=== PATIENT | male | born 1940 | race Caucasian/White ===

== ENCOUNTER → 2018-10-30 | Outpatient (CLI) | payer MEDICARE ==
[~2018-10-30] MED LIST: ACET325T38 PO; ALBU2.5V4 NEB; AMLO2.5T4 PO; ASCO500T7 PO; BISA10SU8 RC; BUDE0.5A NEB; CEFD300C3 PO; CNC1KV IM; ESCI10TA55 PO; FERR325T18 PO; FLUT12AE4 INH; FLUT16SP22 NS; FOLI1TAB24 PO; ISOS5TAB3 PO; LORA10TA7 PO; MAG355OR16 PO; MAGN400T50 PO; MAGN800O PO; MELA3TAB PO; MIRT30TA6 PO; MULT-166 PO; OMEP20CA13 PO; POLY17PO6 PO; PRAV40TA2 PO; RISP12.5 IM; RIVA10TA PO; SENN-145 PO; TAMS0.4C98 PO; THIA100T66 PO; TR1C15 TOP; TRAZ-190 PO
[2018-10-30 12:38] LABS: BASOPHILS % (AUTO) 0 % (0-10); EOSINOPHILS # (AUTO) 0.2 10^3/uL (0.0-0.3); EOSINOPHILS % (AUTO) 1 % (0-10); HEMATOCRIT 36 % (40-54); HEMOGLOBIN 11.2 G/DL (13.3-17.7); LYMPHOCYTES # (AUTO) 0.9 X 10^3 (1.0-4.0); LYMPHOCYTES % (AUTO) 8 % (12-44); MEAN CORPUSCULAR HEMOGLOBIN 31 PG (25-34); MEAN CORPUSCULAR HGB CONC 31 G/DL (32-36); MEAN CORPUSCULAR VOLUME 99 FL (80-99); MEAN PLATELET VOLUME 10.1 FL (7.4-10.4); MONOCYTES # (AUTO) 1.2 X 10^3 (0.0-1.0); MONOCYTES % (AUTO) 11 % (0-12); NEUTROPHILS # (AUTO) 8.5 X 10^3 (1.8-7.8); NEUTROPHILS % (AUTO) 79 % (42-75); PLATELET COUNT 186 10^3/uL (130-400); RED CELL DISTRIBUTION WIDTH 14.2 % (10.0-14.5); WHITE BLOOD COUNT 10.8 10^3/uL (4.3-11.0)
--- NOTE | 2018-10-30 14:46 | Diagnostic Imaging Report ---
Indication: Cough. Comparison made with prior examination from 02/13/18. Findings: There are bibasal infiltrates. There is cardiomegaly. There is no pneumothorax. The mediastinum is unremarkable. Impression: There is bibasilar infiltrate. Cardiomegaly. Dictated by: Dictated on workstation # [id number]
== END ==
LOC: LAB 12:19
PROVIDERS: ATTEND Family Medicine
DX: I51.7 Cardiomegaly (principal); R06.02 Shortness of breath
CPT/HCPCS: 36415; 71045; 85025

== ENCOUNTER 2018-10-31 12:40 | Inpatient (IN) | payer MEDICARE | END 2018-11-03 13:40 | disposition other institution (70) | LOC: ER 12:40 → ICU 14:22 | DX: J18.1 Lobar pneumonia, unspecified organism (principal); G93.41 Metabolic encephalopathy; R09.02 Hypoxemia; I10 Essential (primary) hypertension; K21.9 Gastro-esophageal reflux disease without esophagitis; Z86.711 Personal history of pulmonary embolism; F32.9 Major depressive disorder, single episode, unspecified; D64.9 Anemia, unspecified; F03.90 Unspecified dementia, unspecified severity, without behavioral disturbance, psychotic disturbance, mood disturbance, and anxiety; E78.5 Hyperlipidemia, unspecified; N40.0 Benign prostatic hyperplasia without lower urinary tract symptoms; Z79.01 Long term (current) use of anticoagulants; R53.83 Other fatigue; B85.2 Pediculosis, unspecified; B86 Scabies ==

== ENCOUNTER 2018-11-03 22:12 | Emergency (ER) | payer MEDICARE, MEDICAID ==
[~2018-11-03] VITALS: Ht 172.7 cm; Wt 90.3 kg
[2018-11-03] MEDS ORDERED: LACTATED RINGERS 1,000 ML IV ONE (22:21)
[2018-11-03 22:30] LABS: ABG BASE EXCESS -0.7 MMOL/L (-2.5-2.5); ABG OXYGEN SATURATION 98 % (94-100); ABG PCO2 43 MMHG (35-45); ABG PH 7.37 (7.37-7.43); ABG PO2 130 MMHG (79-93); ABG TCO2 25.1 MMOL/L (21.0-31.0)
[2018-11-03 22:35] LABS: BASOPHILS % (AUTO) 0 % (0-10); EOSINOPHILS # (AUTO) 0.2 10^3/uL (0.0-0.3); EOSINOPHILS % (AUTO) 3 % (0-10); HEMATOCRIT 33 % (40-54); HEMOGLOBIN 10.6 G/DL (13.3-17.7); LYMPHOCYTES # (AUTO) 0.5 X 10^3 (1.0-4.0); LYMPHOCYTES % (AUTO) 7 % (12-44); MEAN CORPUSCULAR HGB CONC 32 G/DL (32-36); MEAN CORPUSCULAR VOLUME 96 FL (80-99); MEAN PLATELET VOLUME 9.1 FL (7.4-10.4); MONOCYTES # (AUTO) 0.6 X 10^3 (0.0-1.0); MONOCYTES % (AUTO) 9 % (0-12); NEUTROPHILS # (AUTO) 5.6 X 10^3 (1.8-7.8); NEUTROPHILS % (AUTO) 81 % (42-75); PLATELET COUNT 245 10^3/uL (130-400); RED CELL DISTRIBUTION WIDTH 14.6 % (10.0-14.5)
[2018-11-03 22:35] LABS: ALLENS TEST POSITIVE; INSPIRED O2 15; PATIENT TEMP 99.8; VENTILATOR NO
[2018-11-03 22:37] LABS: MEAN CORPUSCULAR HEMOGLOBIN 30 PG (25-34)
--- NOTE | 2018-11-03 22:49 | ED General ---
General Chief Complaint: Respiratory Problems Stated Complaint: SOA Nursing Triage Note: BROUGHT IN BY [facility] FOR C/O SOA, PRODUCTIVE COUGH, ALTERED MENTAL STATUS, LOW SPO2 Nursing Sepsis Screen: Possible Severe Sepsis Risk Source of Information: Patient Exam Limitations: Physical Impairments History of Present Illness Date Seen by Provider: Nov 03, 2018 Time Seen by Provider: 22:18 Initial Comments Here by EMS with report of shortness of air and cough with altered mental status. EMS reported the initial O2 sat was 88% and he had moderate amount of secretions in the upper airway. They did initiate DuoNeb and transported from the shelter. Apparently discharged today from the hospital and was doing better at discharge with no findings of pneumonia this morning on chest x-ray. Timing/Duration: 1/2 Hour Severity: Moderate Associated Systoms: Cough, Shortness of Air Allergies and Home Medications Allergies Coded Allergies: quetiapine (Verified Allergy, Unknown, 10/31/18) Home Medications Acetaminophen 325 Mg Tablet, 650 MG PO Q4H PRN for PAIN-MILD OR TEMPATURE, (Reported) TAKES 2 (325MG) TABLETS Albuterol Sulfate 2.5 Mg/3 Ml Vial.neb, 2.5 MG NEB QID, (Reported) 10 DAY THERAPY START DATE 10-30-18 END DATE 11-09-18 Amlodipine Besylate 2.5 Mg Tablet, 2.5 MG PO DAILY, (Reported) HOLD FOR BP <100/60 AND PULSE <60 Ascorbic Acid 500 Mg Tablet, 500 MG PO BID, (Reported) Bisacodyl 10 Mg Supp.rect, 10 MG RC Q72H PRN for CONSTIPATION-4TH LINE, (Reported) Budesonide 0.5 Mg/2 Ml Ampul.neb, 0.5 MG NEB Q12H PRN for SHORTNESS OF BREATH, (Reported) Cefdinir 300 Mg Capsule, 300 MG PO BID 300 mg bid x 8 caps Prescribed by: FADUMO LAWS on 11/03/18 1221 Cyanocobalamin 1,000 Mcg/Ml Inj, 1,000 MCG IM Tu, (Reported) Escitalopram Oxalate 10 Mg Tablet, 10 MG PO DAILY, (Reported) Ferrous Sulfate 325 Mg Tablet, 325 MG PO BID, (Reported) Fluticasone Propionate 16 Gm [place].susp, 1 SPRAY NS BID, (Reported) Fluticasone/Salmeterol 12 Gm Hfa.aer.ad, 1 PUFF INH BID, (Reported) Folic Acid 1 Mg Tablet, 1 MG PO DAILY, (Reported) Isosorbide Dinitrate 5 Mg Tablet, 5 MG PO DAILY, (Reported) HOLD FOR BP <100/60 AND PULSE <60 Loratadine 10 Mg Tablet, 10 MG PO DAILY, (Reported) Mag Hydrox/Aluminum Hyd/Simeth 355 Ml Oral.susp, 30 ML PO Q6H PRN for INDIGESTION, (Reported) Magnesium Hydroxide 2,400 Mg/10 Ml Oral.susp, 30 ML PO DAILY PRN for CONSTIPATION-7TH LINE, (Reported) Magnesium Oxide 400 Mg Tablet, 400 MG PO DAILY, (Reported) Melatonin 3 Mg Tablet, 3 MG PO HS, (Reported) Mirtazapine 30 Mg Tablet, 30 MG PO HS, (Reported) Multivitamin with Minerals 1 Each Tablet, 1 TAB PO DAILY, (Reported) Omeprazole 20 Mg Capsule.dr, 20 MG PO DAILY, (Reported) Polyethylene Glycol 3350 17 Gm Powd.pack, 17 GM PO DAILY, (Reported) Pravastatin Sodium 40 Mg Tablet, 40 MG PO HS, (Reported) Risperidone 12.5 Mg/2 Ml Disp.syrin, 12.5 MG IM EVERY 14 DAYS, (Reported) Rivaroxaban 10 Mg Tablet, 10 MG PO DAILY, (Reported) Sennosides/Docusate Sodium 1 Each Tablet, 2 TAB PO BID, (Reported) Tamsulosin HCl 0.4 Mg Cap, 0.4 MG PO HS, (Reported) Thiamine HCl 100 Mg Tablet, 100 MG PO DAILY, (Reported) Trazodone HCl 100 Mg Tablet, 200 MG PO HS, (Reported) TAKES 2 (100MG) TABLETS Triamcinolone Acet 15 Gm Cr, TOP BID, (Reported) APPLY TO BACK RT LOWER QUAD Patient Home Medication List Home Medication List Reviewed: Yes Review of Systems Review of Systems Constitutional: see HPI, fever EENTM: see HPI, nose congestion, other (moderate mucus production) Respiratory: cough, short of breath Unable to complete review of systems due to underlying mental status Past Pxdevzb-[place]-Axlfvl Hx Past Med/Social Hx: Reviewed Nursing Past Med/Soc Hx Patient Social History Alcohol Use: Denies Use Recreational Drug Use: No Smoking Status: Unknown if Ever Smoked Recent Foreign Travel: No Contact w/Someone Who Travel: No Recent Infectious Disease Expo: No Recent Hopitalizations: Yes (DC'D 11/03) Physical Abuse: No Sexual Abuse: No Mistreated: No Fear: No Seasonal Allergies Seasonal Allergies: No Past Medical History Surgeries: No Respiratory: Yes Pulmonary Embolism Cardiac: Yes Hypertension Neurological: Yes Dementia, Traumatic Brain Injury Gastrointestinal: Yes Gastroesophageal Reflux Musculoskeletal: Yes Arthritis Endocrine: No HEENT: No Cancer: No Psychosocial: Yes Depression Integumentary: No Blood Disorders: No Family Medical History Reviewed Nursing Family Hx Physical Exam-Suspected Sepsis Physical Exam Vital Signs Vital Signs - First Documented 11/03/18 22:14 Temp 99.6 Pulse 87 Resp 28 B/P (MAP) 185/86 (119) Pulse Ox 98 O2 Delivery Simple Mask O2 Flow Rate 10.00 Capillary Refill : Less Than 3 Seconds Blood Pressure Mean: 119 Height, Weight, BMI Height: 5'8.00" Weight: 199lbs. 3.0oz. [id number]; 30.8 BMI Method:Estimated General Appearance: Chronically ill, Mild Distress HEENT: PERRL/EOMI Neck: Non Tender, Supple Respiratory: Crackles (throughout transmitted from upper respiratory. Having a hard time handling secretions.) Cardiovascular: Regular Rate, Rhythm, No Murmur Gastrointestinal: Non Tender, Soft Back: Normal Inspection, No Vertebral Tenderness Extremity: Normal Range of Motion, Non Tender Neurologic/Psychiatric: Other (altered mental status that appears to be baseline per charts although unknown.) Skin: normal color, warm/dry, other (has multiple skin eruptions with known history of scabies that has been treated.) Focused Exam Lactate Level 11/03/18 22:20: Lactic Acid Level 0.73 Lactic Acid Level Laboratory Tests Test 11/03/18 22:20 Lactic Acid Level 0.73 MMOL/L (0.50-2.00) Progress/Results/Core Measures Suspected Sepsis Recent Fever Within 48 Hours: Yes Infection Criteria Present: Suspected New Infection New/Unexplained Altered Menta: Yes Sepsis Screen: Possible Severe Sepsis Risk SIRS Temperature:99.6 Pulse: 87 Respiratory Rate: 28 Laboratory Tests 11/03/18 22:20: White Blood Count 7.0 Blood Pressure 185 /86 Mean: 119 11/03/18 22:20: Lactic Acid Level 0.73 Laboratory Tests 11/03/18 22:20: Creatinine 0.85, INR Comment 1.2, Platelet Count 245, Total Bilirubin 0.5 Results/Orders Lab Results Laboratory Tests Test 11/03/18 22:20 11/03/18 22:24 11/03/18 23:25 Range/Units White Blood Count 7.0 4.3-11.0 10^3/uL Red Blood Count 3.48 L 4.35-5.85 10^6/uL Hemoglobin 10.6 #L 13.3-17.7 G/DL Hematocrit 33 L 40-54 % Mean Corpuscular Volume 96 80-99 FL Mean Corpuscular Hemoglobin 30 25-34 PG Mean Corpuscular Hemoglobin Concent 32 32-36 G/DL Red Cell Distribution Width 14.6 H 10.0-14.5 % Platelet Count 245 130-400 10^3/uL Mean Platelet Volume 9.1 7.4-10.4 FL Neutrophils (%) (Auto) 81 H 42-75 % Lymphocytes (%) (Auto) 7 L 12-44 % Monocytes (%) (Auto) 9 0-12 % Eosinophils (%) (Auto) 3 0-10 % Basophils (%) (Auto) 0 0-10 % Neutrophils # (Auto) 5.6 1.8-7.8 X 10^3 Lymphocytes # (Auto) 0.5 L 1.0-4.0 X 10^3 Monocytes # (Auto) 0.6 0.0-1.0 X 10^3 Eosinophils # (Auto) 0.2 0.0-0.3 10^3/uL Basophils # (Auto) 0.0 0.0-0.1 10^3/uL Neutrophils % (Manual) 84 % Lymphocytes % (Manual) 5 % Monocytes % (Manual) 5 % Eosinophils % (Manual) 5 % Band Neutrophils 1 % Elliptocytes SLIGHT Prothrombin Time 15.3 H 12.2-14.7 SEC INR Comment 1.2 0.8-1.4 Activated Partial Thromboplast Time 36 H 24-35 SEC D-Dimer 3.64 H 0.00-0.49 UG/ML Sodium Level 140 135-145 MMOL/L Potassium Level 4.1 3.6-5.0 MMOL/L Chloride Level 104 98-107 MMOL/L Carbon Dioxide Level 24 21-32 MMOL/L Anion Gap 12 5-14 MMOL/L Blood Urea Nitrogen 19 H 7-18 MG/DL Creatinine 0.85 0.60-1.30 MG/DL Estimat Glomerular Filtration Rate > 60 BUN/Creatinine Ratio 22 Glucose Level 100 70-105 MG/DL Lactic Acid Level 0.73 0.50-2.00 MMOL/L Calcium Level 8.8 8.5-10.1 MG/DL Corrected Calcium 9.3 8.5-10.1 MG/DL Total Bilirubin 0.5 0.1-1.0 MG/DL Aspartate Amino Transf (AST/SGOT) 24 5-34 U/L Alanine Aminotransferase (ALT/SGPT) 15 0-55 U/L Alkaline Phosphatase 89 40-136 U/L Total Protein 6.6 6.4-8.2 GM/DL Albumin 3.4 3.2-4.5 GM/DL Blood Gas Puncture Site RIGHT RADIAL Blood Gas Patient Temperature 99.8 Arterial Blood pH 7.37 7.37-7.43 Arterial Blood Partial Pressure CO2 43 35-45 MMHG Arterial Blood Partial Pressure O2 130 H 79-93 MMHG Arterial Blood HCO3 24 23-27 MMOL/L Arterial Blood Total CO2 25.1 21.0-31.0 MMOL/L Arterial Blood Oxygen Saturation 98 94-100 % Arterial Blood Base Excess -0.7 -2.5-2.5 MMOL/L Ruy Test POSITIVE Blood Gas Ventilator Setting NO Blood Gas Inspired Oxygen 15 Urine Color YELLOW Urine Clarity CLEAR Urine pH 5 5-9 Urine Specific [place] 1.025 H 1.016-1.022 Urine Protein 1+ H NEGATIVE Urine Glucose (UA) NEGATIVE NEGATIVE Urine Ketones 4+ H NEGATIVE Urine Nitrite NEGATIVE NEGATIVE Urine Bilirubin NEGATIVE NEGATIVE Urine Urobilinogen NORMAL NORMAL MG/DL Urine Leukocyte Esterase 1+ H NEGATIVE Urine RBC (Auto) 1+ H NEGATIVE Urine RBC 2-5 H /HPF Urine WBC 0-2 /HPF Urine Squamous Epithelial Cells 2-5 /HPF Urine Crystals NONE /LPF Urine Bacteria MODERATE H /HPF Urine Casts PRESENT /LPF Urine Hyaline Casts 0-2 H /LPF Urine Mucus NEGATIVE /LPF Urine Culture Indicated CULTURE PENDING My Orders Orders - KARLIE EISENBERG MD Cbc With Automated Diff (11/03/18 22:21) Comprehensive Metabolic Panel (11/03/18 22:21) Blood Culture (11/03/18 22:21) Sputum Culture (11/03/18 22:21) Urinalysis (11/03/18 22:21) Urine Culture (11/03/18 22:21) Protime With Inr (11/03/18 22:21) Partial Thromboplastin Time (11/03/18 22:21) Chest 1 View, Ap/Pa Only (11/03/18 22:21) Ed Iv/Invasive Line Start (11/03/18 22:21) Vital Signs Adult Sepsis Patie Q15M (11/03/18 22:21) O2 (11/03/18 22:21) Remove Rings In Anticipation O (11/03/18 22:21) Lactic Acid Analyzer (11/03/18 22:21) Lactated Ringers (Lr 1000 Ml Iv Solution (11/03/18 22:21) Arterial Blood Gas (11/03/18 22:21) Fibrin Degradation Products (11/03/18 22:21) Manual Differential (11/03/18 22:20) Arterial Blood Draw (11/03/18 ) Ct Angio Chest W (11/04/18 00:01) Iohexol Injection (Omnipaque 350 Mg/Ml 1 (11/04/18 00:15) Received Contrast (Hold Metformin- Contr (11/04/18 00:15) Ns (Ivpb) (Sodium Chloride 0.9% Ivpb Bag (11/04/18 00:15) Medications Given in ED Current Medications Medications Dose Ordered Sig/Roseann Route Start Time Stop Time Status Last Admin Dose Admin Iohexol 150 ml ONCE ONCE IV 11/04/18 00:15 11/04/18 00:16 DC 11/04/18 00:15 125 ML Lactated Ringer's 1,000 ml @ 0 mls/hr Q0M ONCE IV 11/03/18 22:21 11/03/18 22:24 DC 11/03/18 22:37 0 MLS/HR Sodium Chloride 100 ml ONCE ONCE IV 11/04/18 00:15 11/04/18 00:16 DC 11/04/18 00:15 80 ML Vital Signs/I&O 11/03/18 11/03/18 11/03/18 22:14 22:34 23:15 Temp 99.6 99.0 Pulse 87 93 Resp 28 27 B/P (MAP) 185/86 (119) 200/94 Pulse Ox 98 95 93 O2 Delivery Simple Mask Nasal Cannula Nasal Cannula O2 Flow Rate 10.00 4.00 2.00 11/04/18 00:00 Intake Total 1000 ml Balance 1000 ml Capillary Refill : Less Than 3 Seconds Blood Pressure Mean: 119 Progress Note : Progress Note Seen and evaluated. IV, labs, blood cultures and lactic acid ordered. Chest x- ray ordered. RT for ABG and suctioning. Suctioning did significantly improve his respiratory status. Monitor patient. D-dimer markedly elevated. 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 Given his risk, we will go ahead and get CT angiogram of the chest. Suctioning seems to have helped his breathing. He remains on 2 L via nasal cannula. Monitor patient. 0045: I did have at length discussion with the patient's guardian, Tammy Alarcon. We both agree the patient would benefit from change of CODE STATUS to DO NOT RESUSCITATE. I did discuss this with the shelter and they will take an order for me pending final paperwork from her. Overall he has remained improved throughout the ER stay just with suctioning when necessary. I did make sure that the shelter has suction available and they will with that and his room to help manage his secretions. Discharge back to shelter with return precautions. Dorcasjori agrees with plan. custodial did not have transfer capability and has asked for EMS. I did discuss with them that he does not meet Medicare guidelines for ambulance transfer and they would be responsible for the cost for which they stated they understood. Diagnostic Imaging Diagonstic Imaging: Xray Plain Films/CT/US/NM/MRI: chest Comments Unchanged from this morning with no acute pulmonary infiltrate noted. Reviewed: Reviewed by Me Departure Impression Primary Impression: Rhinorrhea Additional Impression: Cough due to bronchospasm Disposition: HOME, SELF-CARE Condition: Stable Departure-Patient Inst. Decision time for Depature: 01:32 Referrals: FABIÁN KENYON DO (PCP/Family) Primary Care Physician Patient Instructions: Acute Bronchitis, Adult (DC), Cough, Adult (DC) Add. Discharge Instructions: All discharge instructions reviewed with patient and/or family. Voiced understanding. Suction mouth as often as needed to prevent coughing and pooling of secretions. Follow-up with your DrEj in a few days for recheck. CODE STATUS changed to DO NOT RESUSCITATE. Orders written. Please send final paperwork to guardian, Tammy Alarcon. Return for worse pain, breathing problems, worsening fever or other concerns as needed. Continue home meds as previously prescribed. Copy Copies To 1: FABIÁN KENYON TIMOTHY D MD Nov 03, 2018 22:49
[2018-11-03 22:54] LABS: ALANINE AMINOTRANSFERASE 15 U/L (0-55); ALBUMIN 3.4 GM/DL (3.2-4.5); ALKALINE PHOSPHATASE 89 U/L (40-136); BILIRUBIN,TOTAL 0.5 MG/DL (0.1-1.0); BUN/CREATININE RATIO 22; CALCIUM 8.8 MG/DL (8.5-10.1); CARBON DIOXIDE 24 MMOL/L (21-32); CHLORIDE 104 MMOL/L (98-107); CREATININE SERUM 0.85 MG/DL (0.60-1.30); GFR ESTIMATED > 60; GLUCOSE 100 MG/DL (70-105); POTASSIUM 4.1 MMOL/L (3.6-5.0); SODIUM 140 MMOL/L (135-145); TOTAL PROTEIN 6.6 GM/DL (6.4-8.2)
[2018-11-03 22:56] LABS: BAND NEUTROPHILS 1 %; ELLIPT/OVALOCYTES SLIGHT; EOSINOPHILS % (MANUAL) 5 %; LYMPHOCYTES % (MANUAL) 5 %; MONOCYTES % (MANUAL) 5 %; NEUTROPHILS % (MANUAL) 84 %
[2018-11-03 22:57] LABS: FIBRIN DEGRADATION PRODUCTS 3.64 UG/ML (0.00-0.49); INR 1.2 (0.8-1.4); PROTHROMBIN TIME PATIENT 15.3 SEC (12.2-14.7)
[2018-11-03 23:35] LABS: BILIRUBIN,URINE NEGATIVE (NEGATIVE); CLARITY,URINE CLEAR; COLOR,URINE YELLOW; GLUCOSE, URINE (UA) NEGATIVE (NEGATIVE); KETONES,URINE 4+ (NEGATIVE); LEUKOCYTE ESTERASE ,URINE 1+ (NEGATIVE); NITRITE,URINE NEGATIVE (NEGATIVE); PH,URINE 5 (5-9); PROTEIN,URINE 1+ (NEGATIVE); UROBILINOGEN,URINE NORMAL (NORMAL)
[2018-11-03 23:55] LABS: WBC,URINE 0-2 /HPF
[2018-11-03 23:56] LABS: BACTERIA,URINE MODERATE /HPF; HYALINE CASTS, URINE 0-2 /LPF
[2018-11-04] MEDS ORDERED: IOHEXOL 350 MG/ML 150 ML (OMNIPAQUE 350) VIAL IV ONE (00:15)
[2018-11-04] MEDS ORDERED: NS 100 ML (IVPB) BAG IV ONE (00:15)
[2018-11-04] MEDS ORDERED: HOLD METFORMIN - RECEIVED CONTRAST 20 ML VIAL IV SCH (00:15)
[2018-11-04 01:45] VITALS: BP 165/96
--- NOTE | 2018-11-04 06:53 | Diagnostic Imaging Report ---
PROCEDURE: CT angiography of the chest with contrast. TECHNIQUE: Multiple contiguous axial images were obtained through the chest after uneventful bolus administration of intravenous contrast. 3D reconstructed CTA MIP acquisitions were also performed. Auto Exposure Controls were utilized during the CT exam to meet ALARA standards for radiation dose reduction. INDICATION: Dyspnea. COMPARISON: None. DISCUSSION: Exam is degraded by patient motion. No obvious pulmonary embolus is identified. Thoracic aorta is normal in caliber and configuration and contains extensive atherosclerotic plaque. Normal heart size. Trace pericardial effusion. Patchy opacities are noted throughout the left upper lobe and bilateral lung bases, most consistent with pneumonia, left greater than right. Minimal tree-in-bud opacities is also noted within the right upper lobe. No pathologically enlarged lymph nodes are identified. Cysts are present within the kidneys. No acute osseous abnormality. IMPRESSION: 1. Suspect bilateral pneumonia. 2. No pulmonary embolus identified on this somewhat limited exam due to motion. 3. Agree with preliminary report. Dictated by: Dictated on workstation # [id number]
--- NOTE | 2018-11-04 07:17 | Diagnostic Imaging Report ---
Indication: Dyspnea. Comparison: 11/03/2018. Discussion: Single portable upright view of the chest was obtained. Stable normal heart size. No focal consolidation, pleural fluid, or pneumothorax. No osseous abnormality. Impression: 1. Stable negative chest. Dictated by: Dictated on workstation # [id number]
== END 2018-11-04 01:51 | disposition home or self-care (01) ==
LOC: EDUNIT# 22:12 → ER 22:13
DX: J34.89 Other specified disorders of nose and nasal sinuses (principal); J98.01 Acute bronchospasm; R41.82 Altered mental status, unspecified; I10 Essential (primary) hypertension; F03.90 Unspecified dementia, unspecified severity, without behavioral disturbance, psychotic disturbance, mood disturbance, and anxiety; K21.9 Gastro-esophageal reflux disease without esophagitis; F32.9 Major depressive disorder, single episode, unspecified; Z88.8 Allergy status to other drugs, medicaments and biological substances; Z86.711 Personal history of pulmonary embolism; Z87.820 Personal history of traumatic brain injury
CPT/HCPCS: 36415; 36600; 71045; 71275; 80053; 81000; 82805; 83605; 85007; 85027; 85379; 85610; 85730; 87040; 87088

== ENCOUNTER → 2018-11-29 | Outpatient (CLI) | payer MEDICARE, MEDICAID | LOC: LAB 15:03 | PROVIDERS: ATTEND Family Medicine | DX: B86 Scabies (principal) | CPT/HCPCS: 87220 ==

== ENCOUNTER → 2019-01-16 | Outpatient (CLI) | payer MEDICARE, MEDICAID ==
--- NOTE | 2019-01-16 13:11 | Diagnostic Imaging Report ---
INDICATION: Swelling and bruising right ring finger. TECHNIQUE: PA view right hand along with two views of the right ring finger 11:41 AM. CORRELATION STUDY: None FINDINGS: There is a triangular shaped fracture at the dorsal articular base of the middle phalanx. There is slight rotation and posterior displacement of the fractured fragment. Displacement of approximately 2 mm. The remaining osseous structures otherwise intact. There is diffuse narrowing through the interphalangeal joints both proximally and distally. Metacarpophalangeal joints appear fairly well-maintained. There is associated soft tissue swelling. IMPRESSION: 1. Mildly displaced fracture involving the dorsal articular base of middle phalanx of the ring finger. Associated soft tissue swelling. Dictated by: Dictated on workstation # [id number]
== END ==
LOC: RAD 11:23
PROVIDERS: ATTEND Family Medicine
DX: S62.624A Displaced fracture of middle phalanx of right ring finger, initial encounter for closed fracture (principal); X58.XXXA Exposure to other specified factors, initial encounter
CPT/HCPCS: 73140

== ENCOUNTER → 2019-03-30 | Outpatient (CLI) | payer MEDICARE, MEDICAID ==
[~2019-03-30] MED LIST changes: -MELA3TAB PO; +MELA3TAB65 PO; +OMEP-280 PO; -OMEP20CA13 PO; -TAMS0.4C98 PO; +TMSL.4C PO
--- NOTE | 2019-03-30 18:55 | Diagnostic Imaging Report ---
INDICATION: Back and rib pain. FINDINGS: Left lung is clear. There is no effusion or pneumothorax. There is no free air beneath the left hemidiaphragm. No fracture deformity. No evidence for pleural hematoma. Left clavicle and shoulder appear unremarkable. IMPRESSION: Negative. Dictated by: Dictated on workstation # [id number]
--- NOTE | 2019-03-30 18:58 | Diagnostic Imaging Report ---
INDICATION: Falls, pain. FINDINGS: Lumbar statures are within normal limits. The alignment is within normal limits. No acute endplate irregularity. There is degenerative disc space narrowing, endplate sclerosis and osteophytes mildly involving all lumbar levels. There is sclerotic facet arthrosis moderate to severely at the mid to lower lumbar levels. There is aortoiliac atherosclerotic vascular calcifications with the infrarenal aorta at least mildly ectatic measuring 3 cm AP based upon its intimal calcification separation. IMPRESSION: Facet arthrosis appears moderate to severe. There is mild spondylosis. No acute bony pathology. Enlargement of the calcified atherosclerotic aorta. Dictated by: Dictated on workstation # [id number]
== END ==
LOC: RAD 14:46
PROVIDERS: ATTEND Family Medicine
DX: M47.816 Spondylosis without myelopathy or radiculopathy, lumbar region (principal); R07.81 Pleurodynia
CPT/HCPCS: 71100; 72100

== ENCOUNTER 2019-04-21 06:02 | Emergency (ER) | payer MEDICARE, MEDICAID ==
[~2019-04-21] VITALS: Ht 175 cm; Wt 90.0 kg
--- NOTE | 2019-04-21 07:15 | NUR ---
DR. DYE NOTIFIED OF MULTIPLE ATTEMPTS AT IV START WITH NO SUCCESS BY SEVERAL ER NURSES. PER DR. DYE BLOOD DRAW ONLY OK AT THIS TIME.
[2019-04-21 07:21] LABS: BILIRUBIN,URINE NEGATIVE (NEGATIVE); CLARITY,URINE CLEAR; COLOR,URINE YELLOW; GLUCOSE, URINE (UA) NEGATIVE (NEGATIVE); KETONES,URINE NEGATIVE (NEGATIVE); LEUKOCYTE ESTERASE ,URINE NEGATIVE (NEGATIVE); NITRITE,URINE NEGATIVE (NEGATIVE); PROTEIN,URINE NEGATIVE (NEGATIVE)
[2019-04-21 07:26] LABS: BASOPHILS % (AUTO) 1 % (0-10); EOSINOPHILS # (AUTO) 0.4 10^3/uL (0.0-0.3); EOSINOPHILS % (AUTO) 6 % (0-10); HEMATOCRIT 35 % (40-54); HEMOGLOBIN 11.2 G/DL (13.3-17.7); LYMPHOCYTES # (AUTO) 0.9 X 10^3 (1.0-4.0); LYMPHOCYTES % (AUTO) 16 % (12-44); MEAN CORPUSCULAR HEMOGLOBIN 31 PG (25-34); MEAN CORPUSCULAR HGB CONC 32 G/DL (32-36); MEAN CORPUSCULAR VOLUME 99 FL (80-99); MEAN PLATELET VOLUME 9.4 FL (7.4-10.4); MONOCYTES # (AUTO) 0.6 X 10^3 (0.0-1.0); MONOCYTES % (AUTO) 10 % (0-12); NEUTROPHILS # (AUTO) 4.1 X 10^3 (1.8-7.8); NEUTROPHILS % (AUTO) 68 % (42-75); PLATELET COUNT 191 10^3/uL (130-400); RED CELL DISTRIBUTION WIDTH 13.1 % (10.0-14.5)
--- NOTE | 2019-04-21 07:32 | Diagnostic Imaging Report ---
PROCEDURE: CT head and CT cervical spine without contrast. TECHNIQUE: Multiple contiguous axial images were obtained through the brain and cervical spine without the use of intravenous contrast. Sagittal and coronal reformations through the cervical spine were then performed. Auto Exposure Controls were utilized during the CT exam to meet ALARA standards for radiation dose reduction. INDICATION: Fall, trauma. COMPARISON: CT head of 11/01/2018. FINDINGS: CT HEAD: No hyperdense hemorrhage or space-occupying mass. No hydrocephalus or midline shift. Shrestha-white matter differentiation is well-preserved. Global atrophy is present. Basilar cisterns are widely patent. Mastoid air cells are clear. Paranasal sinuses show mucosal retention cyst in the maxillary sinuses. Otherwise, paranasal sinuses are clear. Stable right frontal craniotomy. CT cervical spine: No acute fracture or traumatic malalignment in the cervical spine. No fracture of the upper ribs. Bilateral clavicles are intact. No cervical lymphadenopathy. Vascular calcifications in the carotid bulbs. Lung apices are clear. IMPRESSION: 1. No acute intracranial hemorrhage. 2. No acute fracture or traumatic malalignment in the cervical spine. Dictated by: Dictated on workstation # [id number]
[2019-04-21 07:51] LABS: BILIRUBIN,TOTAL 0.5 MG/DL (0.1-1.0); CALCIUM 9.3 MG/DL (8.5-10.1); CREATININE SERUM 1.21 MG/DL (0.60-1.30); POTASSIUM 4.5 MMOL/L (3.6-5.0); TOTAL PROTEIN 6.4 GM/DL (6.4-8.2)
[2019-04-21 07:52] LABS: BACTERIA,URINE NEGATIVE /HPF
--- NOTE | 2019-04-21 07:58 | NUR ---
DR. DYE REMOVED C COLLAR AT THIS TIME.
--- NOTE | 2019-04-21 08:00 | NUR ---
DR. DYE PLACED 2 NATALIA TO LAC ON BACK OF HEAD.
--- NOTE | 2019-04-21 08:15 | NUR ---
[facility] NOTIFIED OF PT PENDING DISMISSAL.
--- NOTE | 2019-04-21 08:29 | ED Fall/Injury ---
General Chief Complaint: Trauma-Non Activation Stated Complaint: FALL,LAC Nursing Triage Note: TO ED ROOM 6 [facility]IA [facility] FROM [facility]. NO REPORT RECEIVED FROM SENDING FACILITY. PER [facility] PT WAS FOUND ON FLOOR AND STAFF HELPED HIM GET UP AND WALK BACK TO BED. UPON ARRIVAL TO ER, LAC TO BACK OF HEAD NOTED WITH BLEEDING CONTROLLED. PT C/O NECK PAIN. C COLLAR PLACED UPON ARRIVAL. FALL UNWITNESS AND PT STATES, "I FELL 12 FEET OFF A LEDGE". PT HAS HX OF DEMENTIA AND BRAIN INJURY. Source: patient, EMS, group home records, old records Exam Limitations: no limitations History of Present Illness Date Seen by Provider: Apr 21, 2019 Time Seen by Provider: 06:05 Initial Comments This 78-year-old gentleman was found on the floor at the group home and arrives via EMS. He has a laceration on the right occiput and complained of a little bit of neck pain. A c-collar was applied on arrival. Patient is alert but confused. He does have dementia at baseline. Staff reports he has been less active and alert recently. He has also had multiple falls. He is afebrile and has no other acute signs of infectious illness. Patient denies any other injury. Patient was up and walking on EMS arrival. He is on Xarelto due to history of pulmonary embolism. He also has a history of subdural hematoma in the past. Occurred: just prior to arrival Allergies and Home Medications Allergies Coded Allergies: quetiapine (Verified Allergy, Unknown, 10/31/18) Home Medications Acetaminophen 325 Mg Tablet, 650 MG PO Q4H PRN for PAIN-MILD OR TEMPATURE, (Reported) TAKES 2 (325MG) TABLETS Albuterol Sulfate 2.5 Mg/3 Ml Vial.neb, 2.5 MG NEB QID, (Reported) 10 DAY THERAPY START DATE 10-30-18 END DATE 11-09-18 Amlodipine Besylate 2.5 Mg Tablet, 2.5 MG PO DAILY, (Reported) HOLD FOR BP <100/60 AND PULSE <60 Ascorbic Acid 500 Mg Tablet, 500 MG PO BID, (Reported) Bisacodyl 10 Mg Supp.rect, 10 MG RC Q72H PRN for CONSTIPATION-4TH LINE, (Reported) Budesonide 0.5 Mg/2 Ml Ampul.neb, 0.5 MG NEB Q12H PRN for SHORTNESS OF BREATH, (Reported) Cefdinir 300 Mg Capsule, 300 MG PO BID 300 mg bid x 8 caps Prescribed by: FADUMO LAWS on 11/03/18 1221 Cyanocobalamin 1,000 Mcg/Ml Inj, 1,000 MCG IM Tu, (Reported) Escitalopram Oxalate 10 Mg Tablet, 10 MG PO DAILY, (Reported) Ferrous Sulfate 325 Mg Tablet, 325 MG PO BID, (Reported) Fluticasone Propionate 16 Gm [place].susp, 1 SPRAY NS BID, (Reported) Fluticasone/Salmeterol 12 Gm Hfa.aer.ad, 1 PUFF INH BID, (Reported) Folic Acid 1 Mg Tablet, 1 MG PO DAILY, (Reported) Isosorbide Dinitrate 5 Mg Tablet, 5 MG PO DAILY, (Reported) HOLD FOR BP <100/60 AND PULSE <60 Loratadine 10 Mg Tablet, 10 MG PO DAILY, (Reported) Mag Hydrox/Aluminum Hyd/Simeth 355 Ml Oral.susp, 30 ML PO Q6H PRN for INDIGESTION, (Reported) Magnesium Hydroxide 2,400 Mg/10 Ml Oral.susp, 30 ML PO DAILY PRN for CONSTIPATION-7TH LINE, (Reported) Magnesium Oxide 400 Mg Tablet, 400 MG PO DAILY, (Reported) Melatonin 3 Mg Tablet, 3 MG PO HS, (Reported) Mirtazapine 30 Mg Tablet, 30 MG PO HS, (Reported) Multivitamin with Minerals 1 Each Tablet, 1 TAB PO DAILY, (Reported) Omeprazole 20 Mg Capsule.dr, 20 MG PO DAILY, (Reported) Polyethylene Glycol 3350 17 Gm Powd.pack, 17 GM PO DAILY, (Reported) Pravastatin Sodium 40 Mg Tablet, 40 MG PO HS, (Reported) Risperidone 12.5 Mg/2 Ml Disp.syrin, 12.5 MG IM EVERY 14 DAYS, (Reported) Rivaroxaban 10 Mg Tablet, 10 MG PO DAILY, (Reported) Sennosides/Docusate Sodium 1 Each Tablet, 2 TAB PO BID, (Reported) Tamsulosin HCl 0.4 Mg Cap, 0.4 MG PO HS, (Reported) Thiamine HCl 100 Mg Tablet, 100 MG PO DAILY, (Reported) Trazodone HCl 100 Mg Tablet, 200 MG PO HS, (Reported) TAKES 2 (100MG) TABLETS Triamcinolone Acet 15 Gm Cr, TOP BID, (Reported) APPLY TO BACK RT LOWER QUAD Patient Home Medication List Home Medication List Reviewed: Yes Review of Systems Review of Systems Constitutional: no symptoms reported Eyes: No Symptoms Reported Ears, Nose, Mouth, Throat: no symptoms reported Respiratory: no symptoms reported Cardiovascular: no symptoms reported Gastrointestinal: no symptoms reported Genitourinary: no symptoms reported Musculoskeletal: see HPI Skin: see HPI Psychiatric/Neurological: See HPI Past Qacmrzt-Pmecbb-Bbtfjx Hx Past Med/Social Hx: Reviewed and Corrections made Patient Social History Alcohol Use: Denies Use Recreational Drug Use: No Smoking Status: Never a Smoker Recent Foreign Travel: No Contact w/Someone Who Travel: No Recent Infectious Disease Expo: No Recent Hopitalizations: No Physical Abuse: No Sexual Abuse: No Mistreated: No Fear: No Seasonal Allergies Seasonal Allergies: No Past Medical History Surgeries: Yes (craniotomy) Respiratory: Yes Pulmonary Embolism Cardiac: Yes High Cholesterol, Hypertension Neurological: Yes Dementia, Traumatic Brain Injury (with subdural hematoma) Genitourinary: Yes Benign Prostatic Hyperpl Gastrointestinal: Yes Gastroesophageal Reflux Musculoskeletal: Yes Arthritis Endocrine: No HEENT: No Cancer: No Psychosocial: Yes Depression Integumentary: No Blood Disorders: No Physical Exam Vital Signs Vital Signs - First Documented 04/21/19 04/21/19 06:04 09:10 Temp 36.3 Pulse 50 Resp 18 B/P (MAP) 193/97 (129) Pulse Ox 98 O2 Delivery Room Air Capillary Refill : Less Than 3 Seconds Height, Weight, BMI Height: 5'8.00" Weight: 199lbs. 3.0oz. 90.757311sv; 29.00 BMI Method:Estimated General Appearance: WD/WN, no apparent distress HEENT: PERRL/EOMI, normal ENT inspection, pharynx normal Neck: normal inspection, other (c-collar in place) Cardiovascular: regular rate, rhythm, no edema, no murmur Respiratory: lungs clear, normal breath sounds, no respiratory distress, no accessory muscle use Gastrointestinal: normal bowel sounds, non tender, soft Extremities: non-tender, normal inspection, no pedal edema, other (no pain with hip palpation or rotation) Neurologic/Psychiatric: piece dyer II-XII nml as tested, no motor/sensory deficits, alert, normal mood/affect, other (mildly confused) Skin: normal color, warm/dry, other (2 cm laceration on the right occiput) [place] Coma Score Best Eye Response: (4) Open Spontaneously Best Verbal Response: (4) Confused Conversation Best Motor Response: (6) Obeys Commands Procedures/Interventions Wound Location: Scalp Wound Length (cm): 2 Wound's Depth, Shape: linear, sub Q Wound Explored: clean Irrigated w/ Saline (ccs): 400 Betadine Prep?: Yes Staple Repair: Stapler 35W Sterile Dressing Applied?: No Progress Wound clean and irrigated with saline and chlorhexidine. Betadine prep applied. 2 mekhi were applied to approximate the wound. Progress/Results/Core Measures Results/Orders Lab Results Laboratory Tests Test 04/21/19 07:11 04/21/19 07:18 Range/Units Urine Color YELLOW Urine Clarity CLEAR Urine pH 7.0 5-9 Urine Specific [place] 1.015 L 1.016-1.022 Urine Protein NEGATIVE NEGATIVE Urine Glucose (UA) NEGATIVE NEGATIVE Urine Ketones NEGATIVE NEGATIVE Urine Nitrite NEGATIVE NEGATIVE Urine Bilirubin NEGATIVE NEGATIVE Urine Urobilinogen 0.2 < = 1.0 MG/DL Urine Leukocyte Esterase NEGATIVE NEGATIVE Urine RBC (Auto) NEGATIVE NEGATIVE Urine RBC NONE /HPF Urine WBC NONE /HPF Urine Squamous Epithelial Cells NONE /HPF Urine Crystals NONE /LPF Urine Bacteria NEGATIVE /HPF Urine Casts NONE /LPF Urine Mucus NEGATIVE /LPF Urine Culture Indicated NO White Blood Count 6.0 4.3-11.0 10^3/uL Red Blood Count 3.58 L 4.35-5.85 10^6/uL Hemoglobin 11.2 L 13.3-17.7 G/DL Hematocrit 35 L 40-54 % Mean Corpuscular Volume 99 80-99 FL Mean Corpuscular Hemoglobin 31 25-34 PG Mean Corpuscular Hemoglobin Concent 32 32-36 G/DL Red Cell Distribution Width 13.1 10.0-14.5 % Platelet Count 191 130-400 10^3/uL Mean Platelet Volume 9.4 7.4-10.4 FL Neutrophils (%) (Auto) 68 42-75 % Lymphocytes (%) (Auto) 16 12-44 % Monocytes (%) (Auto) 10 0-12 % Eosinophils (%) (Auto) 6 0-10 % Basophils (%) (Auto) 1 0-10 % Neutrophils # (Auto) 4.1 1.8-7.8 X 10^3 Lymphocytes # (Auto) 0.9 L 1.0-4.0 X 10^3 Monocytes # (Auto) 0.6 0.0-1.0 X 10^3 Eosinophils # (Auto) 0.4 H 0.0-0.3 10^3/uL Basophils # (Auto) 0.0 0.0-0.1 10^3/uL Sodium Level 143 135-145 MMOL/L Potassium Level 4.5 3.6-5.0 MMOL/L Chloride Level 107 98-107 MMOL/L Carbon Dioxide Level 27 21-32 MMOL/L Anion Gap 9 5-14 MMOL/L Blood Urea Nitrogen 23 H 7-18 MG/DL Creatinine 1.21 0.60-1.30 MG/DL Estimat Glomerular Filtration Rate 58 BUN/Creatinine Ratio 19 Glucose Level 99 70-105 MG/DL Calcium Level 9.3 8.5-10.1 MG/DL Corrected Calcium 9.3 8.5-10.1 MG/DL Total Bilirubin 0.5 0.1-1.0 MG/DL Aspartate Amino Transf (AST/SGOT) 11 5-34 U/L Alanine Aminotransferase (ALT/SGPT) 10 0-55 U/L Alkaline Phosphatase 80 40-136 U/L Total Protein 6.4 6.4-8.2 GM/DL Albumin 4.0 3.2-4.5 GM/DL My Orders Orders - CHUY DYE MD Cbc With Automated Diff (04/21/19 06:13) Comprehensive Metabolic Panel (04/21/19 06:13) Ua Culture If Indicated (04/21/19 06:13) Ed Iv/Invasive Line Start (04/21/19 06:13) Ct Head/Cervical Spine Wo (04/21/19 06:13) Ekg Tracing (04/21/19 06:15) Monitor-Rhythm Ecg Trace Only (04/21/19 06:15) Straight Cath For Spec.-Adult (04/21/19 07:10) Vital Signs/I&O 04/21/19 04/21/19 04/21/19 06:04 07:00 09:10 Temp 36.3 36.3 36.3 Pulse 50 50 53 Resp 18 18 18 B/P (MAP) 193/97 (129) 193/97 (129) 183/77 (129) Pulse Ox 98 O2 Delivery Room Air Room Air Blood Pressure Mean: 129 Progress Progress Note : Progress Note Workup was unremarkable. Laceration was repaired and patient was discharged home. Diagnostic Imaging Diagonstic Imaging: CT Plain Films/CT/US/NM/MRI: head Comments CT head viewed by me and report reviewed. See report below: NAME: LULU GARLAND [facility] REC#: [id number] PT STATUS: REG ER : 1940 PHYSICIAN: CHUY DYE MD ADMIT DATE: 04/21/19/ER Signed Date of Exam:04/21/19 CT HEAD/CERVICAL SPINE WO PROCEDURE: CT head and CT cervical spine without contrast. TECHNIQUE: Multiple contiguous axial images were obtained through the brain and cervical spine without the use of intravenous contrast. Sagittal and coronal reformations through the cervical spine were then performed. Auto Exposure Controls were utilized during the CT exam to meet ALARA standards for radiation dose reduction. INDICATION: Fall, trauma. COMPARISON: CT head of 11/01/2018. FINDINGS: CT HEAD: No hyperdense hemorrhage or space-occupying mass. No hydrocephalus or midline shift. Shrestha-white matter differentiation is well-preserved. Global atrophy is present. Basilar cisterns are widely patent. Mastoid air cells are clear. Paranasal sinuses show mucosal retention cyst in the maxillary sinuses. Otherwise, paranasal sinuses are clear. Stable right frontal craniotomy. CT cervical spine: No acute fracture or traumatic malalignment in the cervical spine. No fracture of the upper ribs. Bilateral clavicles are intact. No cervical lymphadenopathy. Vascular calcifications in the carotid bulbs. Lung apices are clear. IMPRESSION: 1. No acute intracranial hemorrhage. 2. No acute fracture or traumatic malalignment in the cervical spine. Dictated by: Dictated on workstation # [id number] Dict: 04/21/19 0638 Trans: 04/21/19 [id number] [id number] Interpreted by: OLIMPIA BLAIR MD Electronically signed by: OLIMPIA BLAIR MD 04/21/19 08 Departure Impression Primary Impression: Fall on same level Qualified Codes: W18.30XA - Fall on same level, unspecified, initial encounter Additional Impressions: Scalp laceration Qualified Codes: S01.01XA - Laceration without foreign body of scalp, initial encounter Altered mental status Qualified Codes: R41.82 - Altered mental status, unspecified Disposition: HOME, SELF-CARE Condition: Improved Departure-Patient Inst. Decision time for Depature: 08:28 Referrals: FABIÁN KENYON DO (PCP/Family) Primary Care Physician Patient Instructions: Laceration Repair With Mekhi (DC) Add. Discharge Instructions: Monitor wound for signs of infection such as increasing redness, increasing swelling, puslike drainage, or fever. Return to care if the symptoms are noted. Remove mekhi in about 7 days. Follow-up with primary care provider on Tuesday for medication review and review of blood pressures. Avoid any sedating medicines, especially Xanax, until seen by the primary care provider. Return to care if there are any worsening symptoms or other problems or concerns. All discharge instructions reviewed with patient and/or family. Voiced understanding. Copy Copies To 1: FABIÁN KENYON JOSHUA T MD Apr 21, 2019 08:29
[2019-04-21 09:10] VITALS: BP 183/77
== END 2019-04-21 09:15 | disposition home or self-care (01) ==
LOC: EDUNIT# 06:02 → ER 06:04
DX: S01.01XA Laceration without foreign body of scalp, initial encounter (principal); R41.82 Altered mental status, unspecified; I10 Essential (primary) hypertension; E78.00 Pure hypercholesterolemia, unspecified; F03.90 Unspecified dementia, unspecified severity, without behavioral disturbance, psychotic disturbance, mood disturbance, and anxiety; K21.9 Gastro-esophageal reflux disease without esophagitis; F32.9 Major depressive disorder, single episode, unspecified; R40.2142 Coma scale, eyes open, spontaneous, at arrival to emergency department; R40.2252 Coma scale, best verbal response, oriented, at arrival to emergency department; R40.2362 Coma scale, best motor response, obeys commands, at arrival to emergency department; Z86.711 Personal history of pulmonary embolism; Z79.01 Long term (current) use of anticoagulants; Z87.820 Personal history of traumatic brain injury; Z88.8 Allergy status to other drugs, medicaments and biological substances; Z79.51 Long term (current) use of inhaled steroids; W18.30XA Fall on same level, unspecified, initial encounter; Y92.129 Unspecified place in nursing home as the place of occurrence of the external cause
CPT/HCPCS: 12001; 36415; 51701; 70450; 72125; 80053; 81000; 85025; 93005; 93041

== ENCOUNTER 2019-07-19 09:26 | Inpatient (IN) | payer MEDICARE, MEDICAID ==
[~2019-07-19] VITALS: Ht 177.8 cm; Wt 74.8 kg
[~2019-07-19 09:26] MED LIST changes: -MAGN800O PO; +MELA3TAB39 PO; -MELA3TAB65 PO; +MOM10U PO; -OMEP-280 PO; +OMEP20CA18 PO; -TRAZ-190 PO; +TRAZ-227 PO
--- NOTE | 2019-07-19 09:41 | ED Syncope ---
General Stated Complaint: SYNCOPE Source of Information: Patient, EMS, Correction Records Exam Limitations: Other (dementia) History of Present Illness Date Seen by Provider: July 19, 2019 Time Seen by Provider: 09:26 Initial Comments Patient resents ER by EMS from [facility] (formerly [facility]) with chief complaint of 2 episodes of syncope directly before arrival. He was walking down the manzo became lightheaded and complained that his knees are weak and nursing staff says they lowered him to the floor and he did not strike his head. They said he was out for about 20 seconds they helped him back up into a wheelchair. On the way to the bedroom the passed out a second time for about 20 seconds. No fevers chills cough chest pain shortness of air swelling around his abdomen or 4 feet. No sick contacts known. He took his blood pressure medications this dinora conti EMS reports blood pressure is 126 systolic when they arrived. He is not diabetic. He is having no lateralizing symptoms, slurred speech. He is at his baseline for dementia but conversational per staff. DO NOT RESUSCITATE. He does take Xarelto for history of pulmonary embolism. Staff checked his blood pressure and it was 80/60 with a heart rate in the upper 40s. EMS remarks she was able to stand up from the wheelchair and walk to the [place] with [place]by assist. 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 Allergies and Home Medications Allergies Coded Allergies: quetiapine (Verified Allergy, Unknown, 10/31/18) Home Medications Acetaminophen 325 Mg Tablet, 650 MG PO Q4H PRN for PAIN-MILD OR TEMPATURE, (Reported) TAKES 2 (325MG) TABLETS Albuterol Sulfate 2.5 Mg/3 Ml Vial.neb, 2.5 MG NEB QID, (Reported) 10 DAY THERAPY START DATE 10-30-18 END DATE 11-09-18 Amlodipine Besylate 2.5 Mg Tablet, 2.5 MG PO DAILY, (Reported) HOLD FOR BP <100/60 AND PULSE <60 Ascorbic Acid 500 Mg Tablet, 500 MG PO BID, (Reported) Bisacodyl 10 Mg Supp.rect, 10 MG RC Q72H PRN for CONSTIPATION-4TH LINE, (Reported) Budesonide 0.5 Mg/2 Ml Ampul.neb, 0.5 MG NEB Q12H PRN for SHORTNESS OF BREATH, (Reported) Cefdinir 300 Mg Capsule, 300 MG PO BID 300 mg bid x 8 caps Prescribed by: FADUMO LAWS on 11/03/18 1221 Cyanocobalamin 1,000 Mcg/Ml Inj, 1,000 MCG IM Tu, (Reported) Escitalopram Oxalate 10 Mg Tablet, 10 MG PO DAILY, (Reported) Ferrous Sulfate 325 Mg Tablet, 325 MG PO BID, (Reported) Fluticasone Propionate 16 Gm [place].susp, 1 SPRAY NS BID, (Reported) Fluticasone/Salmeterol 12 Gm Hfa.aer.ad, 1 PUFF INH BID, (Reported) Folic Acid 1 Mg Tablet, 1 MG PO DAILY, (Reported) Isosorbide Dinitrate 5 Mg Tablet, 5 MG PO DAILY, (Reported) HOLD FOR BP <100/60 AND PULSE <60 Loratadine 10 Mg Tablet, 10 MG PO DAILY, (Reported) Mag Hydrox/Aluminum Hyd/Simeth 355 Ml Oral.susp, 30 ML PO Q6H PRN for INDIGESTION, (Reported) Magnesium Hydroxide 2,400 Mg/10 Ml Oral.susp, 30 ML PO DAILY PRN for CONSTIPATION-7TH LINE, (Reported) Magnesium Oxide 400 Mg Tablet, 400 MG PO DAILY, (Reported) Melatonin 3 Mg Tablet, 3 MG PO HS, (Reported) Mirtazapine 30 Mg Tablet, 30 MG PO HS, (Reported) Multivitamin with Minerals 1 Each Tablet, 1 TAB PO DAILY, (Reported) Omeprazole 20 Mg Capsule.dr, 20 MG PO DAILY, (Reported) Polyethylene Glycol 3350 17 Gm Powd.pack, 17 GM PO DAILY, (Reported) Pravastatin Sodium 40 Mg Tablet, 40 MG PO HS, (Reported) Risperidone 12.5 Mg/2 Ml Disp.syrin, 12.5 MG IM EVERY 14 DAYS, (Reported) Rivaroxaban 10 Mg Tablet, 10 MG PO DAILY, (Reported) Sennosides/Docusate Sodium 1 Each Tablet, 2 TAB PO BID, (Reported) Tamsulosin HCl 0.4 Mg Cap, 0.4 MG PO HS, (Reported) Thiamine HCl 100 Mg Tablet, 100 MG PO DAILY, (Reported) Trazodone HCl 100 Mg Tablet, 200 MG PO HS, (Reported) TAKES 2 (100MG) TABLETS Triamcinolone Acet 15 Gm Cr, TOP BID, (Reported) APPLY TO BACK RT LOWER QUAD Patient Home Medication List Home Medication List Reviewed: Yes Review of Systems Constitutional: see HPI (review of symptoms limited secondary to patient's dementia); No chills, No fever EENTM: No hearing loss, No ear pain Respiratory: No cough, No short of breath Cardiovascular: No edema; syncope Gastrointestinal: No abdominal pain, No nausea Genitourinary: No discharge, No dysuria Musculoskeletal: No back pain, No joint pain Skin: No pruritus, No rash Psychiatric/Neurological: Denies Headache, Denies Numbness, Denies Paresthesia All Other Systems Reviewed Negative Unless Noted: Yes Past [place]-Rbuyvd-Zrfrpf Hx Patient Social History Alcohol Use: Denies Use Recreational Drug Use: No Smoking Status: Never a Smoker Recent Hopitalizations: No Seasonal Allergies Seasonal Allergies: No Past Medical History Surgeries: Yes (craniotomy) Respiratory: Yes Pulmonary Embolism Cardiac: Yes High Cholesterol, Hypertension Neurological: Yes Dementia, Traumatic Brain Injury Genitourinary: Yes Benign Prostatic Hyperpl Gastrointestinal: Yes Gastroesophageal Reflux Musculoskeletal: Yes Arthritis Endocrine: No HEENT: No Cancer: No Psychosocial: Yes Depression Integumentary: No Blood Disorders: No Physical Exam Vital Signs Vital Signs - First Documented 07/19/19 09:27 Temp 36.4 Pulse 49 Resp 15 B/P (MAP) 108/50 (69) Pulse Ox 96 O2 Delivery Room Air Capillary Refill : Height, Weight, BMI Height: 5'8.00" Weight: 199lbs. 3.0oz. [id number]; 29.00 BMI Method:Estimated General Appearance: No Apparent Distress, WD/WN HEENT: PERRL/EOMI, TMs Normal, Normal ENT Inspection, Pharynx Normal, Moist Mucous Membranes Neck: Full Range of Motion, Normal Inspection Cardiovascular: Regular Rate, Rhythm (sinus bradycardia 45-50), No Edema, No JVD, No Murmur, Normal Peripheral Pulses Respiratory: Lungs Clear, Normal Breath Sounds, No Accessory Muscle Use, No Respiratory Distress Gastrointestinal: Normal Bowel Sounds, No Organomegaly, Non Tender, Soft Extremities: Normal Capillary Refill, Normal Inspection, No Pedal Edema Neurologic/Psychiatric: Alert, Other (oriented to person but not time or place.) Cranial Nerves: Normal Hearing, Normal Speech, PERRL (4 mm bilateral) Motor/Sensory: No Motor Deficit, No Sensory Deficit Skin: Normal Color, Warm/Dry, Other (multiple old skin tears of various stages of healing. Old well-healed scar over the right scalp and scar in the mid abdomen from PEG tube) Progress/Results/Core Measures Results/Orders Lab Results Laboratory Tests Test 07/19/19 09:39 Range/Units White Blood Count 6.1 4.3-11.0 10^3/uL Red Blood Count 3.34 L 4.35-5.85 10^6/uL Hemoglobin 10.6 L 13.3-17.7 G/DL Hematocrit 33 L 40-54 % Mean Corpuscular Volume 100 H 80-99 FL Mean Corpuscular Hemoglobin 32 25-34 PG Mean Corpuscular Hemoglobin Concent 32 32-36 G/DL Red Cell Distribution Width 13.2 10.0-14.5 % Platelet Count 229 130-400 10^3/uL Mean Platelet Volume 9.7 7.4-10.4 FL Neutrophils (%) (Auto) 78 H 42-75 % Lymphocytes (%) (Auto) 11 L 12-44 % Monocytes (%) (Auto) 8 0-12 % Eosinophils (%) (Auto) 3 0-10 % Basophils (%) (Auto) 0 0-10 % Neutrophils # (Auto) 4.7 1.8-7.8 X 10^3 Lymphocytes # (Auto) 0.7 L 1.0-4.0 X 10^3 Monocytes # (Auto) 0.5 0.0-1.0 X 10^3 Eosinophils # (Auto) 0.2 0.0-0.3 10^3/uL Basophils # (Auto) 0.0 0.0-0.1 10^3/uL Sodium Level 141 135-145 MMOL/L Potassium Level 5.0 3.6-5.0 MMOL/L Chloride Level 109 H 98-107 MMOL/L Carbon Dioxide Level 19 L 21-32 MMOL/L Anion Gap 13 5-14 MMOL/L Blood Urea Nitrogen 30 H 7-18 MG/DL Creatinine 1.47 H 0.60-1.30 MG/DL Estimat Glomerular Filtration Rate 46 BUN/Creatinine Ratio 20 Glucose Level 136 H 70-105 MG/DL Calcium Level 8.7 8.5-10.1 MG/DL Corrected Calcium 8.9 8.5-10.1 MG/DL Total Bilirubin 0.4 0.1-1.0 MG/DL Aspartate Amino Transf (AST/SGOT) 17 5-34 U/L Alanine Aminotransferase (ALT/SGPT) 8 0-55 U/L Alkaline Phosphatase 69 40-136 U/L Troponin I < 0.028 <0.028 NG/ML B-Type Natriuretic Peptide 36.0 <100.0 PG/ML Total Protein 6.1 L 6.4-8.2 GM/DL Albumin 3.8 3.2-4.5 GM/DL My Orders Orders - TERESE GATES Cbc With Automated Diff (07/19/19:32) Comprehensive Metabolic Panel (07/19/19:32) Troponin I (07/19/19:32) BNP (07/19/19:) Continuous Ekg Monitoring (07/19/19:) Ekg Tracing (07/19/19:) Chest 1 View, Ap/Pa Only (07/19/19:32) Ua Culture If Indicated (07/19/19:32) Orthostatic Vital Signs (Adult (07/19/19 09:32) Ct Head Wo (07/19/19 09:32) Ed Iv/Invasive Line Start (07/19/19 10:25) Ns Iv 1000 Ml (Sodium Chloride 0.9%) (07/19/19 10:25) Vital Signs/I&O 07/19/19 07/19/19 09:27 10:37 Temp 36.4 Pulse 49 48 52 54 Resp 15 B/P (MAP) 108/50 (69) 117/51 (73) 111/55 (73) 116/52 (73) Pulse Ox 96 O2 Delivery Room Air Progress Progress Note #1: Time: 09:39 Progress Note Syncopal episodes without apparent trauma related to sinus bradycardia. Plan to get orthostatic vital signs, EKG, labs including troponin and BNP. His sinus bradycardia appears to be symptomatic. He takes amlodipine, Imdur, Risperdal and trazodone which may contribute to syncope. He is on Xarelto therefore we'll get a scan of his head without IV contrast. He does not have a pacemaker. Atypical presentation for an [place]?. Plan to give him aspirin to chew and swallow if his CT scan of the head is negative. He has a history of multiple falls. Progress Note #2: Time: 11:00 Progress Note Patient's orthostatics are not positive however he has paroxysmal bradycardia despite his syncopal episodes. We will give him a liter of fluids. He has not had any dysrhythmia on the monitor since he's been here. It looks like he typically has sinus bradycardia based on previous EKGs. Sebastian syncopal score -2 points. Very low risk; 0.7% risk of 30-day serious adverse event. Plan consultation with cardiology Initial ECG Impression Date: July 19, 2019 Initial ECG Impression Time: : Initial ECG Rate: 48 Initial ECG Rhythm: S.William Initial ECG Intervals: Normal Initial ECG Impression: Sinus Bradycardia Initial ECG Comparisson: Unchanged Comment Sinus bradycardia without clinically relevant ST changes. Unchanged from EKG from April 2019 when he was in the 40s with sinus bradycardia. Diagnostic Imaging Diagonstic Imaging: Xray Plain Films/CT/US/NM/MRI: chest (1v) Comments NAME: LULU GARLAND [facility] REC#: [id number] PT STATUS: REG ER : 1940 PHYSICIAN: TERESE GATES MD ADMIT DATE: 07/19/19/ER Draft Date of Exam:07/19/19 CHEST 1 VIEW, AP/PA ONLY INDICATION: Syncopal episode and bradycardia. TIME OF EXAM: 10:13 a.m. COMPARISON: Correlation is made with prior chest from 11/03/2018. The heart size is normal. The pulmonary vascularity is unremarkable. The lungs are clear. No infiltrate, effusion or pneumothorax is detected. IMPRESSION: No acute cardiopulmonary process is detected. Dictated on workstation # [id number] Dict: 07/19/19 1031 Trans: 07/19/19 1035 [id number] Interpreted by: SAI ANNE MD Electronically signed by: Reviewed: Reviewed by Me Diagonstic Imaging: CT (without IV contrast) Plain Films/CT/US/NM/MRI: head Comments Unchanged from previous CT. No acute intracranial hemorrhage, mass effect, midline shift or tumor. NAME: [facility] REC#: [id number] PT STATUS: REG ER : 1940 PHYSICIAN: TERESE GATES MD ADMIT DATE: 07/19/19/ER Draft Date of Exam:07/19/19 CT HEAD WO PROCEDURE: CT head without contrast. TECHNIQUE: Multiple contiguous axial images were obtained through the brain without the use of intravenous contrast. Auto Exposure Controls were utilized during the CT exam to meet ALARA standards for radiation dose reduction. INDICATION: Syncope. Correlation is made with prior head CT from 04/21/2019. Postsurgical changes of a right frontal craniotomy is noted. Ventricular size and sulcal pattern appear to be stable. There is no sulcal effacement or midline shift. No acute intra-axial or extra-axial hemorrhage is detected. Cisterns are patent. Visualized paranasal sinuses demonstrate small mucous retention cysts or polyps in bilateral maxillary sinuses. IMPRESSION: 1. Stable noncontrast head CT. No acute intracranial process detected. 2. Bilateral maxillary sinus mucous retention cysts or polyps. Dictated on workstation # [id number] Dict: 07/19/19 1011 Trans: 07/19/19 1014 [facility] [id number] Interpreted by: SAI ANNE MD Electronically signed by: Reviewed: Reviewed by Me Departure Communication (Admissions) Time/Spoke to Admitting Phy: 11:08 Dr Silverman: IM accepts to Cardiac stepdown. There was no injury or trauma so this is a medicine admit not a surgical/, admit. This was communicated to the surgeon on-call. Time/Spoke to Consulting Phy: 11:05 Discussed the case with Dr. Verdin and he recommends admitting the patient to medicine and he will consult on cardiac stepdown. Telemetry. Impression Primary Impression: Syncope Qualified Codes: R55 - Syncope and collapse Additional Impression: Bradycardia by electrocardiogram Disposition: ADMITTED INPATIENT Condition: Stable Admissions Decision to Admit Reason: Admit from ER (General) Decision to Admit/Date: July 19, 2019 Time/Decision to Admit Time: 11:05 Departure-Patient Inst. Referrals: FABIÁN KENYON DO (PCP/Family) Primary Care Physician TERESE GATES July 19, 2019 09:41
[2019-07-19 09:53] LABS: BASOPHILS % (AUTO) 0 % (0-10); EOSINOPHILS # (AUTO) 0.2 10^3/uL (0.0-0.3); EOSINOPHILS % (AUTO) 3 % (0-10); HEMATOCRIT 33 % (40-54); HEMOGLOBIN 10.6 G/DL (13.3-17.7); LYMPHOCYTES # (AUTO) 0.7 X 10^3 (1.0-4.0); LYMPHOCYTES % (AUTO) 11 % (12-44); MEAN CORPUSCULAR HEMOGLOBIN 32 PG (25-34); MEAN CORPUSCULAR HGB CONC 32 G/DL (32-36); MEAN CORPUSCULAR VOLUME 100 FL (80-99); MEAN PLATELET VOLUME 9.7 FL (7.4-10.4); MONOCYTES # (AUTO) 0.5 X 10^3 (0.0-1.0); MONOCYTES % (AUTO) 8 % (0-12); NEUTROPHILS # (AUTO) 4.7 X 10^3 (1.8-7.8); NEUTROPHILS % (AUTO) 78 % (42-75); PLATELET COUNT 229 10^3/uL (130-400); RED CELL DISTRIBUTION WIDTH 13.2 % (10.0-14.5); WHITE BLOOD COUNT 6.1 10^3/uL (4.3-11.0)
--- OUTSIDE RECORDS SUMMARY | 2019-07-19 10:01 | XMS REPORT | Continuity of Care Document ---
Author Organization Unknown Address Unknown Phone Unavailable Allergies Active Description Code Type Severity Reaction Onset Reported/Identified Relationship to Patient Clinical Status Yes No Known Allergies NKMA N/A N/A 01/23/2018 Yes No Known Drug Allergies [id number] Drug Allergy Unknown N/A 10/31/2018 Yes quetiapine [id number] Drug Allerg y Unknown N/A 10/31/2018 Medications Medication Packaging Start Date St op Date Route Dosage Sig magnesium oxide(magnesium ox jesus 400 mg (241.3 mg elemental magnesium) oral tablet) 1 tabs 01/23/2018 Oral 400 mg 400 mg = 1 tabs, Oral, qAM, 60 tabs, 0 Refill(s) pravastatin(pravastatin 40 mg oral tablet) 1 tabs 01/23/2018 Oral 40 mg 40 mg = 1 tabs, Oral, Bedtime (once a day), 90 tabs, 0 Refill(s) fluticasone(Flovent HFA 44 m cg/inh inhalation aerosol) 2 puffs 01/23/2018 Inhalation 2 puffs, Inhalation, BID, 10 .6 g, 0 Refill(s) naproxen(Aleve 220 mg oral tablet) 1 caps 01/23/2018 03/03/2018 Oral 1 caps, Oral, Daily, PRN: Pain Mild (1-3), 40 caps, 0 Refill(s) isosorbide dinitrate(isosorb jesus dinitrate 10 mg oral tablet) 0.5 tabs 01/23/2018 Oral 5 mg 5 mg = 0.5 tabs, Oral, BID, 0 Refill(s) amLODIPine(amLODIPine 5 mg oral tablet) 1 tabs 01/23/2018 Oral 5 mg 5 mg = 1 tabs, Oral, Bedtime (once a day), 30 tabs, 0 Refill(s) Lactated Ringers Injection(L actated Ringers Injection 1,000 mL) 1,000 mL 01/23/2018 02/04/2018 IV 50 mL/hr, IV docusate(Colace) 10 mL 01/23/2018 03/03/2018 NG-Tube 100 mg 100 mg = 10 mL, NG-Tube, BID ondansetron(Zofran) 2 mL 01/23/2018 03/03/2018 IV Push 4 mg 4 mg = 2 mL, IV Push, q6hr, PRN: Nausea polyethylene glycol 3350(MiraLax) 1 packets 01/23/2018 01/31/2018 Oral 17 g 17 g = 1 packets, Oral, Daily, PRN: Constipation levETIRAcetam(Keppra) 1 tabs 01/23/2018 01/24/2018 Oral 500 mg 500 mg = 1 tabs, Oral, BID acetaminophen(acetaminophen) 2 tabs 01/23/2018 03/03/2018 Oral 650 mg 650 mg = 2 tabs, Oral, q4hr, PRN: Other (See Comment) traMADol(traMADol) 1 tabs 01/23/2018 02/09/2018 Oral 50 mg 50 mg = 1 tabs, Oral, q4hr, PRN: Pain fluticasone(Flovent HFA 44 m cg/inh inhalation aerosol) 2 puffs 01/23/2018 02/14/2018 Inha lation 88 mcg 88 mcg = 2 puffs , Inhalation, BID magnesium oxide(magnesium oxide) 1 tabs 01/23/2018 03/03/2018 NG-Tube 400 mg 400 mg = 1 tabs, NG-Tube, qAM amLODIPine(amLODIPine) 1 tab s 01/23/2018 03/03/2018 NG-Tube 5 mg 5 mg = 1 tabs, NG-Tube, Bedtime (once a day) isosorbide dinitrate(isosorbide dinitrate) 0.5 tabs 01/23/2018 03/03/2018 NG-Tube 5 mg 5 mg = 0.5 tabs, NG-Tube, BI D ondansetron(Zofran) 1 tabs 01/23/2018 02/06/2018 Oral 4 mg 4 mg = 1 tabs, Oral, q6hr, PRN: Nausea folic acid(folic acid) 1 tab s 01/23/2018 02/06/2018 NG-Tube 1 mg 1 mg = 1 tabs, NG-Tube, Daily LORazepam(Ativan) 0.5 mL 01/23/2018 02/06/2018 IV Push 1 mg 1 mg = 0.5 mL, IV Push, q5min, PRN: Seizure promethazine(Phenergan) 1 mL 01/23/2018 02/06/2018 IntraMuscular 25 mg 25 mg = 1 mL, IntraMuscular, q4hr, PRN: Nausea haloperidol(Haldol) 0.1 mL 01/23/2018 02/06/2018 IV Push 0.5 mg 0.5 mg = 0.1 mL, IV Push, q2hr, PRN: Other (See Comment) thiamine(thiamine) 1 tabs 01/23/2018 01/24/2018 Oral 100 mg 100 mg = 1 tabs, Oral, Daily hydrALAZINE(hydrALAZINE) 0.5 mL 01/23/2018 01/30/2018 IV Push 10 mg 10 mg = 0.5 mL, IV Push, q4hr, PRN: Hypertension/High Blood Pressure thiamine(thiamine + Sodium Chloride 0.9% 5 0 mL) 5 mL 01/24/2018 02/01/2018 IV Push 500 mg 500 mg = 5 mL, 55 mL/hr, IV Push, Daily levETIRAcetam(Keppra) 5 mL 01/24/2018 02/01/2018 IV Piggyback 500 mg 500 mg = 5 mL, 420 mL/hr, IV Piggyback, BID Sodium Chloride 0.9%(dexmede tomidine IV additive 400 mcg [0.2 mcg/kg/hr] + NS' 100 mL) 100 mL 8 02/04/2018 IV 4.89 mL/hr, IV Sodium Chloride 0.9%(Sodium Chloride 0.9% 1,000 mL) 1,000 mL 01/24/2018 01/24/2018 IV 10 mg/hr, IV lidocaine(lidocaine 1% injectable solution ) 1 mL 01/24/2018 01/24/2018 SubCutaneous 1 mL, SubCutaneous, Once, MA N: Other (See Comment) ceFAZolin(ceFAZolin) 20 mL 01/24/2018 01/25/2018 IV Push 2 g 2 g = 20 mL, IV Push, q8hr morphine(morphine 1 mg/mL pr eservative-free injectable solution) 1 mL 01/24/2018 01/27/2018 IV Pus h 4 mg 4 mg = 1 mL, IV Push, q1hr, PRN: Pain Severe (7-10) HYDROmorphone(Dilaudid) 0.5 mL 01/24/2018 01/24/2018 IV Push 0.5 mg 0.5 mg = 0.5 mL, IV Push, q10min, PRN: Pain magnesium sulfate(magnesium sulfate) 50 mL 01/26/2018 01/26/2018 IV Piggyback 2 g 2 g = 50 mL, 25 mL/hr, IV Pi ggyback, Once potassium phosphate(potassium phosphate) 5 mL 01/26/2018 01/26/2018 IV Piggyback 15 mmol 15 mmol = 5 mL, 77.5 mL/hr, IV Piggyback, Once labetalol(labetalol) 2 mL 01/28/2018 03/03/2018 IV Push 10 mg 10 mg = 2 mL, IV Push, q2hr, PRN: Hypertension/High Blood Pressure hydrALAZINE(hydrALAZINE) 0.5 mL 01/28/2018 03/03/2018 IV Push 10 mg 10 mg = 0.5 mL, IV Push, q4hr, PRN: Hypertension/High Blood Pressure magnesium sulfate(magnesium sulfate) 50 mL 01/29/2018 02/16/2018 IV Piggyback 2 g 2 g = 50 mL, 25 mL/hr, IV Pi ggyback, q2hr, PRN: Other (See Comment) sodium phosphate(sodium phosphate) 13.33 mL 01/29/2018 02/22/2018 IV Piggyback 40 mmol 40 mmol = 13.33 mL, 43.89 mL /hr, IV Piggyback, Daily, PRN: Other (See Comment) potassium phosphate(potassium phosphate) 13.33 mL 01/29/2018 02/16/2018 IV Piggyback 40 mmol 40 mmol = 13.33 mL, 85.56 mL /hr, IV Piggyback, Daily, PRN: Other (See Comment) calcium gluconate(calcium gluconate) 30 mL 01/29/2018 02/16/2018 IV Piggyback 3 g 3 g = 30 mL, 43.33 mL/hr, IV Piggyback, Daily, PRN: Other (See Comment) potassium chloride(potassium chloride 20 mEq/100 mL intravenous solution) 100 mL 01/29/2018 8 IV Piggyback 20 mEq 20 mE q = 100 mL, 50 mL/hr, IV Piggyback, q2hr, PRN: Other (See Comment) furosemide(Lasix) 2 mL 01/29/2018 01/29/2018 IV Push 20 mg 20 mg = 2 mL, IV Push, Once potassium chloride(potassium chloride 20 mEq/15 mL oral liquid) 2 packets 01/30/2018 01/30/2018 Dobhoff Tube 40 mEq 40 mEq = 2 packe ts, Dobhoff Tube, Once LORazepam(Ativan) 0.25 mL 01/30/2018 01/30/2018 IV Push 0.5 mg 0.5 mg = 0.25 mL, IV Push, Once polyethylene glycol 3350(MiraLax) 1 packets 01/31/2018 03/03/2018 Dobhoff Tube 17 g 17 g = 1 packets, Dobhoff Tu be, Daily senna(Senokot) 1 tabs 01/31/2018 03/03/2018 Oral 8.6 mg 8.6 mg = 1 tabs, Oral, Daily glycopyrrolate(Robinul) 1 mL 01/31/2018 02/20/2018 IV Push 0.2 mg 0.2 mg = 1 mL, IV Push, BID, PRN: Secretions potassium chloride(potassium chloride 20 mEq oral powder for reconstitution) 2 packets 01/31/2018 02/16/2018 Oral 40 mEq 40 mEq = 2 packets, Oral, q2hr, PRN: Other (See Comment) doxazosin(doxazosin) 1 tabs 02/02/2018 03/03/2018 Dobhoff Tube 1 mg 1 mg = 1 tabs, Dobhoff Tube, Bedtime (once a day) Sodium Chloride 0.9%(Sodium Chloride 0.9% 1,000 mL) 1,000 mL 02/04/2018 02/07/2018 IV 75 mL/hr, IV ceFAZolin(ceFAZolin) 20 mL 02/05/2018 02/06/2018 IV Push 2 g 2 g = 20 mL, IV Push, q8hr (scheduled) morphine(morphine) 0.5 mL 02/05/2018 02/05/2018 IV Push 2 mg 2 mg = 0.5 mL, IV Push, q5min, PRN: Pain HYDROmorphone(Dilaudid) 0.5 mL 02/05/2018 02/05/2018 IV Push 0.5 mg 0.5 mg = 0.5 mL, IV Push, q10min, PRN: Pain LORazepam(Ativan) 0.25 mL 02/05/2018 02/05/2018 IV Push 0.5 mg 0.5 mg = 0.25 mL, IV Push, Once thiamine(thiamine) 1 tabs 02/06/2018 03/03/2018 Oral 100 mg 100 mg = 1 tabs, Oral, Daily ipratropium-albuterol(ipratr opium-albuterol 0.5 mg-2.5 mg/3 mLinhalation solution) 3 mL 02/06/2018 02/20/2018 EzPap 3 mL, E zPap, q4hr- [place] famotidine(Pepcid) 2 mL 02/08/2018 02/08/2018 IV Push 20 mg 20 mg = 2 mL, IV Push, Once famotidine(Pepcid) 1 tabs 02/08/2018 02/21/2018 NG-Tube 20 mg 20 mg = 1 tabs, NG-Tube, BID calcium carbonate(Tums) 2 ta bs 02/08/2018 02/18/2018 Oral 1,000 mg 1,000 mg = 2 tabs, Oral, TID, PRN: GERD/Heartburn haloperidol(Haldol) 0.05 mL 02/09/2018 02/15/2018 IV Push 0.25 mg 0.25 mg = 0.05 mL, IV Push, q4hr, PRN: Agitation budesonide(budesonide 0.5 mg /2 mL inhalation suspension) 2 mL 02/14/2018 02/14/2018 NEB 0.5 mg 0.5 mg = 2 mL, NEB, BID budesonide(budesonide 0.5 mg /2 mL inhalation suspension) 2 mL 02/14/2018 02/20/2018 EzPap 0.5 mg 0.5 mg = 2 mL, E zPap, BID enoxaparin(Lovenox) 0.4 mL 02/15/2018 02/16/2018 SubCutaneous 40 mg 40 mg = 0.4 mL, SubCutaneous, Daily rivaroxaban(Xarelto) 1 tabs 02/16/2018 03/03/2018 G-Tube 10 mg 10 mg = 1 tabs, G-Tube, Daily lidocaine(lidocaine 0.5% injectable soluti on) 5 mL 02/16/2018 02/16/2018 IntraDermal 5 mL, IntraDermal, Once mirtazapine(Remeron) 1 tabs 02/20/2018 03/03/2018 Oral 7.5 mg 7.5 mg = 1 tabs, Oral, Bedtime (once a day) budesonide(budesonide 0.5 mg /2 mL inhalation suspension) 2 mL 02/20/2018 03/03/2018 NEB 0.5 mg 0.5 mg = 2 mL, NEB, BID ipratropium-albuterol(DuoNeb 0.5 mg-2.5 mg/3 mL inhalation solution) 3 mL 02/20/2018 03/03/2018 NE B 3 mL, NEB, BID folic acid(folic acid) 1 tab s 03/03/2018 03/03/2018 Oral 0.4 mg 0.4 mg = 1 tabs, Oral, Daily polyethylene glycol 3350(MiraLax) 1 packets 03/03/2018 03/03/2018 Oral 17 g 17 g = 1 packets, Oral, BID docusate(Colace) 10 mL 03/03/2018 Oral 100 mg 100 mg = 10 mL, Oral, BID, 0 Refill(s) acetaminophen(acetaminophen 325 mg oral ta blet) 2 tabs 03/03/2018 Oral 650 mg 650 mg = 2 tabs, Oral, q4hr, PRN: Other (See Comment), 0 Refill(s) folic acid(folic acid 0.4 mg oral tablet) 1 tabs 03/03/2018 Oral 0.4 mg 0.4 mg = 1 tabs, Oral, Daily, 0 Refill(s) senna(Senokot 8.6 mg oral tablet) 1 tabs 03/03/2018 Oral 8.6 mg 8.6 mg = 1 tabs, Oral, Daily, 0 Refill(s) thiamine(thiamine 100 mg oral tablet) 1 tabs 03/03/2018 Oral 100 mg 100 mg = 1 tabs, Oral, Daily, 0 Refill(s) polyethylene glycol 3350(MiraLax) 1 packets 03/03/2018 Oral 17 g 17 g = 1 packets, Oral, BID, 0 Refill(s) mirtazapine(Remeron 15 mg oral tablet) 0.5 tabs 03/03/2018 Oral 7.5 mg 7.5 mg = 0.5 tabs, Oral, Bedtime (once a day), 0 Refill(s) rivaroxaban(Xarelto 10 mg oral tablet) 1 tabs 03/03/2018 G-Tube 10 mg 10 mg = 1 tabs, G-Tube, Daily, for 21 days then stp, 0 Refill(s) valproic acid(valproic acid 250 mg/5 mL oral syrup) 5 mL 03/03/2018 Oral 250 mg 250 mg = 5 mL, Oral, qAM, 0 Refill(s) valproic acid(valproic acid 250 mg/5 mL oral syrup) 20 mL 03/03/2018 Oral 1, 000 mg 1,000 mg = 20 mL, Oral, Bedt tico (once a day), 0 Refill(s) doxazosin(doxazosin 1 mg oral tablet) 1 tabs 03/03/2018 Oral 1 mg 1 mg = 1 tabs, Oral, Bedtime (once a day), 0 Refill(s) Problems Date Dx Coded Attending Type Code Diagnosis Diagnosed By 01/25/2018 Jameson Valerio S06.5X9A TRAUMATIC SUBDURAL HEMORRHAGE WITH LOSS OF CONSCIOUSNESS OF UNSPECIFIED DURATION, INITIAL ENCOUNTER Jameson Valerio 01/25/2018 Jameson Valerio W19.XXXA UNSPECIFIED FALL, INITIAL ENCOUNTER [facility] [place], Jameson 01/31/2018 Jameson Valerio F10 .10 [facility]COH[facility]2018 Jameson Valerio S06.5X9A TRAUMATIC SUBDURAL HEMORRHAGE WITH LOSS OF CONSCIOUSNESS OF UNSPECIFIED DURATION, INITIAL ENCOUNTER Jameson Valerio 01/31/2018 Jameson Valerio W19.XXXA UNSPECIFIED FALL, INITIAL ENCOUNTER [facility] [place], Jameson 02/09/2018 Jameson Valerio Z18 .2 RETAINED PLASTIC FRAGMENTS Jameson Valerio 03/08/2018 Liz Aaron Final D64. 9 Anemia, unspecified 03/08/2018 Agusto,Linus Final E46 Unspecified protein-calorie malnutrition 03/08/2018 Agusto,Linus Final E51. 2 Wernicke''s encephalopathy 03/08/2018 Liz Aaron Final E78. 5 Hyperlipidemia, unspecified 03/08/2018 Liz Aaron Final E87. 1 Hypo-osmolality and hyponatremia 03/08/2018 Agusto,Linus Final E87. 6 Hypokalemia 03/08/2018 Agusto,Linus Final F01. 51 Vascular dementia with behavioral disturbance 03/08/2018 Liz Aaron Final F10. 20 Alcohol dependence, uncomplicated 03/08/2018 Agusto,Linus Final F32. 9 Major depressive disorder, single episode, unspecified 03/08/2018 Agusto,Linus Final I10 Essential (primary) hypertension 03/08/2018 Agusto,Linus Final I25. 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 9 Chronic obstructive pulmonary disease, unspecified 03/08/2018 Liz Aaron Final K21. 9 Gastro-esophageal reflux disease without esophagitis 03/08/2018 Agusto,Linus Final L 03.311 Cellulitis of abdominal wall 03/08/2018 Agusto,Linus Final N17. 9 Acute kidney failure, unspecified 03/08/2018 Liz Aaron Final R29. 6 Repeated falls 03/08/2018 Agusto,Linus Final R 40.2143 Coma scale, eyes open, spontaneous, at hospital admiss ion 03/08/2018 Liz Aaron Final R 40.2253 Coma scale, best verbal response, oriented, at hospita l admission 03/08/2018 Liz Aaron Final R 40.2363 Coma scale, best motor response, obeys c ommands, at hospital admission 03/08/2018 Liz Aaron Final S 00.511A Abrasion of lip, initial encounter 03/08/2018 Liz Aaron Admitting S06.5X9A Traumatic subdural hemorrhage with loss of consciousness of unspecified dur 03/08/2018 Liz Aaron Final T 85.79XA Infection and inflammatory reaction due to other internal prosthetic device 03/08/2018 Liz Aaron Final W 19.XXXA Unspecified fall, initial encounter 03/08/2018 Agusto,Linus Final Z23 Encounter for immunization 03/08/2018 Agusto,Linus Final Z 85.820 Personal history of malignant melanoma of skin 03/08/2018 Agusto,Linus Final S 06.5X9A Traumatic subdural hemorrhage with loss of consciousness of unspecified dur 07/20/2018 Kris Díaz F 290.0 Dementia 08/29/2018 GELLENDER DO, FABIÁN Mackey Ot M43.17 SPONDYLOLISTHESIS, LUMBOSACRAL REGION 08/29/2018 GELLENDER DO, FABIÁN Mackey Ot M47.816 SPONDYLOSIS W/O MYELOPATHY OR RADICULOPA 08/29/2018 GELLENDER DO, FABIÁN Mackey Ot M79.89 OTHER SPECIFIED SOFT TISSUE DISORDERS 08/29/2018 GELLENDER DO, FABIÁN Mackey Ot N39.0 URINARY TRACT INFECTION, SITE NOT SPECIF 08/29/2018 GELLENDER DO, FABIÁN Mackey Ot W19.XXXA UNSPECIFIED FALL, INITIAL ENCOUNTER 09/25/2018 GELLENDER DO, FABIÁN Mackey Ot M43.17 SPONDYLOLISTHESIS, LUMBOSACRAL REGION 09/25/2018 GELLENDER DO, FABIÁN Mackey Ot M47.816 SPONDYLOSIS W/O MYELOPATHY OR RADICULOPA 09/25/2018 GELLENDER DO, FABIÁN Mackey Ot M79.89 OTHER SPECIFIED SOFT TISSUE DISORDERS 09/25/2018 GELLENDER DO, FABIÁN Mackey Ot N39.0 URINARY TRACT INFECTION, SITE NOT SPECIF 09/25/2018 GELLENDER DO, FABIÁN Mackey Ot W19.XXXA UNSPECIFIED FALL, INITIAL ENCOUNTER 11/01/2018 GELLENDER DO, FAIBÁN Mackey Ot I51.7 CARDIOMEGALY 11/01/2018 GELLENDER DO, FABIÁN Mackey Ot R06.02 SHORTNESS OF BREATH 11/03/2018 GELLENDER DO, FABIÁN Mackey Ot B85.2 PEDICULOSIS, UNSPECIFIED 11/03/2018 GELLENDER DO, FABIÁN Mackey Ot B86 SCABIES 11/03/2018 GELLENDER DO, FABIÁN Mackey Ot D64.9 ANEMIA, UNSPECIFIED 11/03/2018 GELLENDER DO, FABIÁN Mackey Ot E78.5 HYPERLIPIDEMIA, UNSPECIFIED 11/03/2018 GELLENDER DO, FABIÁN Mackey Ot F03.90 UNSPECIFIED DEMENTIA WITHOUT BEHAVIORAL 11/03/2018 GELLENDER DO, FABIÁN Mackey Ot F32.9 MAJOR DEPRESSIVE DISORDER, SINGLE EPISOD 11/03/2018 GELLENDER DO, FABIÁN Mackey Ot G93.41 METABOLIC ENCEPHALOPATHY 11/03/2018 GELLENDER DO, FABIÁN Mackey Ot I10 ESSENTIAL (PRIMARY) HYPERTENSION 11/03/2018 GELLENDER DO, FABIÁN Mackey Ot J18.1 LOBAR PNEUMONIA, UNSPECIFIED ORGANISM 11/03/2018 GELLENDER DO, FABIÁN Mackey Ot K21.9 GASTRO-ESOPHAGEAL REFLUX DISEASE WITHOUT 11/03/2018 GELLENDER DO, FABIÁN Mackey Ot N40.0 BENIGN PROSTATIC HYPERPLASIA WITHOUT LOW 11/03/2018 GELLENDER DO, FABIÁN Mackey Ot R09.02 HYPOXEMIA 11/03/2018 GELLENDER DO, FABIÁN Mackey Ot R53.83 OTHER FATIGUE 11/03/2018 GELLENDER DO, FABIÁN Mackey Ot Z79.01 PEER EDUCATOR (CURRENT) USE OF ANTICOAGULANT 11/03/2018 GELLENDER DO, FABIÁN Mackey Ot Z86.711 PERSONAL HISTORY OF PULMONARY EMBOLISM 11/03/2018 GELLENDER DO, FABIÁN Mackey Ot B85.2 PEDICULOSIS, UNSPECIFIED 11/03/2018 GELLENDER DO, FABIÁN Mackey Ot B86 SCABIES 11/03/2018 GELLENDER DO, FABIÁN Mackey Ot D64.9 ANEMIA, UNSPECIFIED 11/03/2018 GELLENDER DO, FABIÁN Mackey Ot E78.5 HYPERLIPIDEMIA, UNSPECIFIED 11/03/2018 GELLENDER DO, FABIÁN Mackey Ot F03.90 UNSPECIFIED DEMENTIA WITHOUT BEHAVIORAL 11/03/2018 GELLENDER DO, FABIÁN Mackey Ot F32.9 MAJOR DEPRESSIVE DISORDER, SINGLE EPISOD 11/03/2018 GELLENDER DO, FABIÁN Mackey Ot G93.41 METABOLIC ENCEPHALOPATHY 11/03/2018 GELLENDER DO, FABIÁN Mackey Ot I10 ESSENTIAL (PRIMARY) HYPERTENSION 11/03/2018 GELLENDER DO, FABIÁN Mackey Ot J18.1 LOBAR PNEUMONIA, UNSPECIFIED ORGANISM 11/03/2018 GELLENDER DO, FABIÁN Mackey Ot K21.9 GASTRO-ESOPHAGEAL REFLUX DISEASE WITHOUT 11/03/2018 GELLENDER DO, FABIÁN Mackey Ot N40.0 BENIGN PROSTATIC HYPERPLASIA WITHOUT LOW 11/03/2018 GELLENDER DO, FABIÁN Mackey Ot R09.02 HYPOXEMIA 11/03/2018 GELLENDER DO, FABIÁN Mackey Ot R53.83 OTHER FATIGUE 11/03/2018 GELLENDER DO, FABIÁN Mackey Ot Z79.01 PEER EDUCATOR (CURRENT) USE OF ANTICOAGULANT 11/03/2018 GELLENDER DO, FABIÁN Mackey Ot Z86.711 PERSONAL HISTORY OF PULMONARY EMBOLISM 11/03/2018 GELLENDER DO, FABIÁN Key Ot B85.2 PEDICULOSIS, UNSPECIFIED 11/03/2018 GELLENDER DO, FABIÁN Mackey Ot B86 SCABIES 11/03/2018 GELLENDER DO, FABIÁN Key Ot D64.9 ANEMIA, UNSPECIFIED 11/03/2018 GELLENDER DO, FABIÁN Mackey Ot E78.5 HYPERLIPIDEMIA, UNSPECIFIED 11/03/2018 GELLENDER DO, FABIÁN Mackey Ot F03.90 UNSPECIFIED DEMENTIA WITHOUT BEHAVIORAL 11/03/2018 GELLENDER DO, FABIÁN Mackey Ot F32.9 MAJOR DEPRESSIVE DISORDER, SINGLE EPISOD 11/03/2018 GELLENDER DO, FABIÁN Mackey Ot G93.41 METABOLIC ENCEPHALOPATHY 11/03/2018 GELLENDER DO, FABIÁN Mackey Ot I10 ESSENTIAL (PRIMARY) HYPERTENSION 11/03/2018 GELLENDER DO, FABIÁN Mackey Ot J18.1 LOBAR PNEUMONIA, UNSPECIFIED ORGANISM 11/03/2018 GELLENDER DO, FABIÁN Mackey Ot K21.9 GASTRO-ESOPHAGEAL REFLUX DISEASE WITHOUT 11/03/2018 GELLENDER DO, FABIÁN Mackey Ot N40.0 BENIGN PROSTATIC HYPERPLASIA WITHOUT LOW 11/03/2018 GELLENDER DO, FABIÁN Mackey Ot R09.02 HYPOXEMIA 11/03/2018 GELLENDER DO, FABIÁN Mackey Ot R53.83 OTHER FATIGUE 11/03/2018 GELLENDER DO, FABIÁN Key Ot Z79.01 PEER EDUCATOR (CURRENT) USE OF ANTICOAGULANT 11/03/2018 GELLENDER DO, FABIÁN Mackey Ot Z86.711 PERSONAL HISTORY OF PULMONARY EMBOLISM 11/03/2018 GELLENDER DO, FABIÁN Key Ot A41.9 SEPSIS, UNSPECIFIED ORGANISM 11/03/2018 GELLENDER DO, FABIÁN Mackey Ot B85.2 PEDICULOSIS, UNSPECIFIED 11/03/2018 GELLENDER DO, FABIÁN Key Ot B86 SCABIES 11/03/2018 GELLENDER DO, FABIÁN Key Ot D64.9 ANEMIA, UNSPECIFIED 11/03/2018 GELLENDER DO, FABIÁN Mackey Ot E78.5 HYPERLIPIDEMIA, UNSPECIFIED 11/03/2018 GELLENDER DO, FABIÁN Mackey Ot F03.90 UNSPECIFIED DEMENTIA WITHOUT BEHAVIORAL 11/03/2018 GELLENDER DO, FABIÁN Makcey Ot F32.9 MAJOR DEPRESSIVE DISORDER, SINGLE EPISOD 11/03/2018 GELLENDER DO, FABIÁN Mackey Ot G93.41 METABOLIC ENCEPHALOPATHY 11/03/2018 GELLENDER DO, FABIÁN Mackey Ot I10 ESSENTIAL (PRIMARY) HYPERTENSION 11/03/2018 GELLENDER DO, FABIÁN Mackey Ot J18.1 LOBAR PNEUMONIA, UNSPECIFIED ORGANISM 11/03/2018 GELLENDER DO, FABIÁN Mackey Ot K21.9 GASTRO-ESOPHAGEAL REFLUX DISEASE WITHOUT 11/03/2018 GELLENDER DO, FABIÁN Mackey Ot N40.0 BENIGN PROSTATIC HYPERPLASIA WITHOUT LOW 11/03/2018 GELLENDER DO, FABIÁN Mackey Ot R09.02 HYPOXEMIA 11/03/2018 GELLENDER DO, FABIÁN Mackey Ot R53.83 OTHER FATIGUE 11/03/2018 GELLENDER DO, FABIÁN Mackey Ot Z79.01 [facility] (CURRENT) USE OF ANTICOAGULANT 11/03/2018 GELLENDER DO, FABIÁN Mackey Ot Z86.711 PERSONAL HISTORY OF PULMONARY EMBOLISM 11/04/2018 KARLIE EISENBERG MD Ot F03.90 UNSPECIFIED DEMENTIA WITHOUT BEHAVIORAL 11/04/2018 KARLIE EISENBERG MD Ot F32.9 MAJOR DEPRESSIVE DISORDER, SINGLE EPISOD 11/04/2018 KARLIE EISENBERG MD Ot I10 ESSENTIAL (PRIMARY) HYPERTENSION 11/04/2018 KARLIE EISENBERG MD Ot J34.89 OTHER SPECIFIED DISORDERS OF NOSE AND NA 11/04/2018 KARLIE EISENBERG MD Ot J98.01 ACUTE BRONCHOSPASM 11/04/2018 KARLIE EISENBERG MD Ot K21.9 GASTRO-ESOPHAGEAL REFLUX DISEASE WITHOUT 11/04/2018 KARLIE EISENBERG MD Ot R06.02 SHORTNESS OF BREATH 11/04/2018 KARLIE EISENBERG MD Ot R41.82 ALTERED MENTAL STATUS, UNSPECIFIED 11/04/2018 KARLIE EISENBERG MD Ot Z86.711 PERSONAL HISTORY OF PULMONARY EMBOLISM 11/04/2018 KARLIE EISENBERG MD Ot Z87.820 PERSONAL HISTORY OF TRAUMATIC BRAIN INJU 11/04/2018 KARLIE EISENBERG MD Ot Z88.8 ALLERGY STATUS TO OTH DRUG/MEDS/BIOL SUB 11/07/2018 KARLIE EISENBERG MD Ot F03.90 UNSPECIFIED DEMENTIA WITHOUT BEHAVIORAL 11/07/2018 KARLIE EISENBERG MD Ot F32.9 MAJOR DEPRESSIVE DISORDER, SINGLE EPISOD 11/07/2018 KARLIE EISENBERG MD Ot I10 ESSENTIAL (PRIMARY) HYPERTENSION 11/07/2018 KARLIE EISENBERG MD Ot J34.89 OTHER SPECIFIED DISORDERS OF NOSE AND NA 11/07/2018 KARLIE EISENBERG MD Ot J98.01 ACUTE BRONCHOSPASM 11/07/2018 KALRIE EISENBERG MD, Ot K21.9 GASTRO-ESOPHAGEAL REFLUX DISEASE WITHOUT 11/07/2018 KARLIE EISENBERG MD Ot R06.02 SHORTNESS OF BREATH 11/07/2018 KARLIE EISENBERG MD, Ot R41.82 ALTERED MENTAL STATUS, UNSPECIFIED 11/07/2018 KARLIE EISENBERG MD, Ot Z86.711 PERSONAL HISTORY OF PULMONARY EMBOLISM 11/07/2018 AKRLIE EISENBERG MD, Ot Z87.820 PERSONAL HISTORY OF TRAUMATIC BRAIN INJU 11/07/2018 KARLIE EISENBERG MD, Ot Z88.8 ALLERGY [facility]US TO [facility] DRUG/MEDS/[facility] 12/05/2018 [facility] Mackey Ot B86 SCABIES 02/06/2019 [facility] Mackey Ot S62.624A DISP FX OF MIDDLE PHALANX OF RIGHT RING 02/06/2019 [facility] X58.XXXA EXPOSURE TO OTHER SPECIFIED FACTORS, INI 04/02/2019 [facility] Mackey Ot M47.816 SPONDYLOSIS W/O MYELOPATHY OR RADICULOPA 04/02/2019 [facility] R07.81 PLEURODYNIA 04/21/2019 CHUY DYE MD Ot E78.00 PURE HYPERCHOLESTEROLEMIA, UNSPECIFIED 04/21/2019 CHUY DYE MD Ot F03.90 UNSPECIFIED DEMENTIA WITHOUT BEHAVIORAL 04/21/2019 CHUY DYE MD Ot F32.9 MAJOR DEPRESSIVE DISORDER, SINGLE EPISOD 04/21/2019 CHUY DYE MD Ot I10 ESSENTIAL (PRIMARY) HYPERTENSION 04/21/2019 CHUY DYE MD Ot K21.9 GASTRO-ESOPHAGEAL REFLUX DISEASE WITHOUT 04/21/2019 CHUY DYE MD Ot R40.2142 COMA SCALE, EYES OPEN, SPONTANEOUS, EMR 04/21/2019 CHUY DYE MD, Ot R40.2252 COMA SCALE, BEST VERBAL RESPONSE, ORIENT 04/21/2019 CHUY DYE MD, Ot R40.2362 COMA SCALE, BEST MOTOR RESPONSE, OBEYS C 04/21/2019 CHUY DYE MD, Ot R41.82 ALTERED MENTAL STATUS, UNSPECIFIED 04/21/2019 CHUY DYE MD, Ot S01.01XA LACERATION WITHOUT FOREIGN BODY OF SCALP 04/21/2019 CHUY DYE MD, Ot W18.30XA FALL ON SAME LEVEL, UNSPECIFIED, INITIAL 04/21/2019 CHUY DYE MD, Ot Y92.[address] [facility] PLACE 04/21/2019 CHUY DYE MD, Ot Z79.01 PEER EDUCATOR (CURRENT) USE OF ANTICOAGULANT 04/21/2019 CHUY DYE MD Ot Z79.51 PEER EDUCATOR (CURRENT) USE OF INHALED STERO 04/21/2019 CHUY DYE MD, Ot Z86.711 PERSONAL HISTORY OF PULMONARY EMBOLISM 04/21/2019 CHUY DYE MD, Ot Z87.820 PERSONAL HISTORY OF TRAUMATIC BRAIN INJU 04/21/2019 CHUY DYE MD, Ot Z88.8 ALLERGY STATUS TO [facility] DRUG/MEDS/BIOL SUB 04/27/2019 CHUY DYE MD Ot E78.00 PURE HYPERCHOLESTEROLEMIA, UNSPECIFIED 04/27/2019 CHUY DYE MD Ot F03.90 UNSPECIFIED DEMENTIA WITHOUT BEHAVIORAL 04/27/2019 CHUY DYE MD, Ot F32.9 MAJOR DEPRESSIVE DISORDER, SINGLE EPISOD 04/27/2019 CHUY DYE MD, Ot I10 ESSENTIAL (PRIMARY) HYPERTENSION 04/27/2019 CHUY DYE MD, Ot K21.9 GASTRO-ESOPHAGEAL REFLUX DISEASE WITHOUT 04/27/2019 CHUY DYE MD, Ot R40.2142 COMA SCALE, EYES OPEN, SPONTANEOUS, EMR 04/27/2019 CHELE DYE MDUA T Ot R40.2252 COMA SCALE, BEST VERBAL RESPONSE, ORIENT 04/27/2019 CHUY DYE MD, Ot R40.2362 COMA SCALE, BEST MOTOR RESPONSE, OBEYS C 04/27/2019 CHUY DYE MD, Ot R41.82 ALTERED MENTAL STATUS, UNSPECIFIED 04/27/2019 CHUY DYE MD, Ot S01.01XA LACERATION WITHOUT FOREIGN BODY OF SCALP 04/27/2019 CHUY DYE MD, Ot W18.30XA FALL ON SAME LEVEL, UNSPECIFIED, INITIAL 04/27/2019 CUHY DYE MD, Ot Y92.[address] [facility] PLACE 04/27/2019 CHUY DYE MD, Ot Z79.01 [facility] (CURRENT) USE OF ANTICOAGULANT 04/27/2019 CHUY DYE MD, Ot Z79.51 PEER EDUCATOR (CURRENT) USE OF INHALED STERO 04/27/2019 CHUY DYE MD, Ot Z86.711 PERSONAL HISTORY OF PULMONARY EMBOLISM 04/27/2019 CHUY DYE MD, Ot Z87.820 PERSONAL HISTORY OF TRAUMATIC BRAIN INJU 04/27/2019 CHUY DYE MD, Ot Z88.8 ALLERGY STATUS TO [facility] DRUG/MEDS/BIOL SUB 04/30/2019 FABIÁN KENYON DO Ot M47.816 SPONDYLOSIS W/O MYELOPATHY OR RADICULOPA 04/30/2019 FABIÁN KENYON DO Ot R07.81 PLEURODYNIA 05/02/2019 CHUY DYE MD, Ot E78.00 PURE HYPERCHOLESTEROLEMIA, UNSPECIFIED 05/02/2019 CHUY DYE MD, Ot F03.90 UNSPECIFIED DEMENTIA WITHOUT BEHAVIORAL 05/02/2019 CHUY DYE MD, Ot F32.9 MAJOR DEPRESSIVE DISORDER, SINGLE EPISOD 05/02/2019 CHUY DYE MD, Ot I10 ESSENTIAL (PRIMARY) HYPERTENSION 05/02/2019 CHUY DEY MD, Ot K21.9 GASTRO-ESOPHAGEAL REFLUX DISEASE WITHOUT 05/02/2019 CHUY DYE MD, Ot R40.2142 COMA SCALE, EYES OPEN, SPONTANEOUS, EMR 05/02/2019 CHUY DYE MD, Ot R40.2252 COMA SCALE, BEST VERBAL RESPONSE, ORIENT 05/02/2019 [place], CHUY Nation Ot R40.2362 COMA SCALE, BEST MOTOR RESPONSE, OBEYS C 05/02/2019 CHUY DYE MD, Ot R41.82 ALTERED MENTAL STATUS, UNSPECIFIED 05/02/2019 CHUY DYE MD, Ot S01.01XA LACERATION WITHOUT FOREIGN BODY OF SCALP 05/02/2019 CHUY DYE MD, Ot W18.30XA FALL ON SAME LEVEL, UNSPECIFIED, INITIAL 05/02/2019 CHUY DYE MD, Ot Y92.[address] [facility] [address] 05/02/2019 CHUY DYE MD, Ot Z79.01 [facility] (CURRENT) USE OF ANTICOAGULANT 05/02/2019 CHUY DYE MD, Ot Z79.51 PEER EDUCATOR (CURRENT) USE OF INHALED STERO 05/02/2019 CHUY DYE MD, Ot Z86.711 PERSONAL HISTORY OF PULMONARY EMBOLISM 05/02/2019 CHUY DYE MD, Ot Z87.820 PERSONAL HISTORY OF TRAUMATIC BRAIN INJU 05/02/2019 CHUY DYE MD, Ot Z88.8 ALLERGY STATUS TO OT DRUG/MEDS/BIOL SUB Procedures Code [place] [address] CRAN I FOR EVAC OF HEMATOMA SUPRATENTORIAL, EXTRADURAL OR SUBDURAL [facility] [id number] Re moval of Drainage Device from Brain, Percutaneous Approach 02/05/201854401 SHAAN NEGRO OF IMPLANT; Jameson Still 02/09/2018 65591 CRAN I FOR EVAC OF HEMATOMA SUPRATENTORIAL, EXTRADURAL OR SUBDURAL Jameson Valerio 02/10/2018 59823 INIT [facility] Jameson Valerio 02/23/201814252 SHAAN NEGRO OF IMPLANT; Jameson Still 03/10/2018 93682 Comp rehensive metabolic panel 07/20/2018 02172 CBC with platelets, auto 07/20/2018 33801 Comp uted tomography, head or brain; without contrast material 0 07/20/2018 70380 Radi ologic exam chest 2 views 07/20/2018 60165 Free T4 07/20/2018 47463 Thyr oid stimulating hormone (TSH) 07/20/2018 86693 12+ -lead ECG, interp/report only 07/20/2018 71695 Urin alysis, automated, without microscopy 07/20/2018 Results Test Result Range COMPREHENSIVE CHEM PROFILE - 11/23/16 07 :43 GLUCOSE 100 MG/DL 60-99 BUN 14 MG/DL 8-23 CREATININE 1.0 MG/DL 0.5-1.2 eGFR If Am 88 ml/min/1.73m^2 >60 eGFR If Non Am 73 ml/min/1.73m^2 >60 TOTAL BILI 0.68 MG/DL 0.00-1.00 SODIUM 140 MMOL/L 133-145 POTASSIUM 4.4 MMOL/L 3.3-5.1 CHLORIDE 100 MMOL/L 96-108 CO2 26 MMOL/L 23-31 CALCIUM 9.3 MG/DL 8.7-10.3 AST/SGOT 20 U/L 5-40 ALT/SGPT 21 U/L 5-40 ALK PHOS 81 U/L 34-114 TOTAL PROTEIN 6.8 G/DL 5.9-8.4 ALBUMIN 4.2 G/DL 3.2-5.2 GLOBULIN 2.6 G/DL 2.0-4.4 LIPID PROFILE - 11/23/16 07:43 CHOLESTEROL 167 MG/DL 50-200 TRIGLYCERIDE 127 MG/DL 30-150 HDL-DIRECT 51 MG/DL 35-55 LDL-DIRECT 106 MG/DL 0-99 CHOL/HDL 3.3 RATIO 4.0-6.7 TSH Reflex to Free T4 - 01/18/18 16:10 TSH 1.04 uIU/ML 0.40-5.00 CBC - 01/18/18 16:11 WBC 7.1 X10^3/UL 4.0-10.0 NE% 77.6 % 42.2-75.2 NE# 5.5 X10^3/UL 1.4-6.5 LY% 12.3 % 20.5-51.1 LY# 0.9 X10^3/UL 1.2-3.4 MO% 8.2 % 1.7-9.3 MO# 0.6 X10^3/UL 0.1-0.6 EO% 1.3 % 0.0-3.0 EO# 0.1 X10^3/UL 0.0-0.2 BA% 0.3 % 0.0-1.0 BA# 0.0 X10^3/UL 0.0-0.1 RBC 4.04 X10^6 4.50-5.70 HGB 13.6 G/DL 13.8-17.0 HCT 41.4 % 39.0-49.0 MCV 102.5 FL 80.0-94.0 MCH 33.7 PG 26.0-32.0 MCHC 32.9 G/DL 32.0-36.0 RDW 13.1 % 11.5-15.5 PLT 205 X10^3 130-400 MPV 8.9 FL 9.0-12.1 Urine Dipstick/Microscopic for Symptoms - 01/18/18 16:11 COLOR D.YEL YELLOW-STRAW CLARITY CLEAR CLEAR LEUKOCYTES TR NEGATIVE NITRITES NEG NEGATIVE pH 6.5 5-8 PROTEIN NEG NEGATIVE GLUCOSE NORM MG/DL NEG KETONES SM NEGATIVE UROBILINOGEN NORM MG/DL 0 - 1.0 BILIRUBIN NEG NEGATIVE BLOOD NEG NEGATIVE SPEC GRAVITY 1.014 1.016-1.022 WBC 5-10 hpf 0-5/HPF RBC 2-5 hpf 0-2/HPF SQUAMOUS EPITH FEW hpf FEW/HPF BACTERIA 1+ hpf NONE/HPF CRYSTALS 0 hpf NONE/HPF MUCOUS 1+ hpf NONE/HPF HYALINE CASTS MANY lpf NONE/LPF OTHER CASTS 0 lpf NONE/LPF Vitamin D 25 - Hydroxy - 01/18/18 16:11 Urine Culture #[id number] - 01/18/18 16:11 CBC With Platelet and Differential - 18:51 Absolute Basophils 0.02 10*3/uL 0.00-0.2 0 Absolute Eosinophils 0.07 10*3/uL 0.00-0 .50 Absolute Lymphocytes 0.86 10*3/uL 0.80-3 .30 Absolute Monocytes 0.58 10*3/uL 0.30-1.0 0 Absolute Neutrophils 4.76 10*3/uL 1.90-7 .00 Basophils 0 % 0-2 Eosinophils 1 % 0-4 HCT 36.7 % 42.0-52.0 HGB 12.4 g/dL 14.0-18.0 Immature Granulocytes 0.5 % 0.0-1.0 Lymphocytes 14 % 20-46 MCH 34.0 pg 27.0-32.0 MCHC 33.8 g/dL 32.0-36.0 MCV 100.5 fL 82.0-99.0 Monocytes 9 % 4-11 MPV 9.1 fL 9.4-12.3 Neutrophils 75 % 51-75 Nucleated RBC Automated 0.0 /100 WBC Platelet Count 171 K/uL 150-400 RBC 3.65 10*6/uL 4.60-6.20 RDW 12.8 % 11.5-14.5 WBC 6.3 K/uL 4.8-10.8 Comprehensive Metabolic Panel (CMP) - 18:51 Albumin 3.3 g/dL 3.5-4.8 Alkaline Phosphatase 74 U/L 26-104 ALT (SGPT) 30 U/L 17-63 Anion Gap 12 mEq/L 3-20 AST (SGOT) 32 U/L 15-41 Bilirubin Total 1.5 mg/dL 0.2-1.2 BUN 23 mg/dL 4-20 Calcium 8.6 mg/dL 8.6-10.0 Chloride 99 mEq/L 99-109 CO2 23 mEq/L 22-32 Creatinine 1.40 mg/dL 0.64-1.27 Globulin 2.7 g/dL 1.9-4.3 Glucose 86 mg/dL 70-100 Potassium 4.6 mEq/L 3.6-5.1 Protein 6.0 g/dL 6.1-7.9 Sodium 134 mEq/L 136-144 eGFR - 01/23/18 18:51 eGFR 49 mL/min >60 CBC With Platelet and Differential - 04:11 Absolute Basophils 0.01 10*3/uL 0.00-0.2 0 Absolute Eosinophils 0.11 10*3/uL 0.00-0 .50 Absolute Lymphocytes 0.84 10*3/uL 0.80-3 .30 Absolute Monocytes 0.45 10*3/uL 0.30-1.0 0 Absolute Neutrophils 3.78 10*3/uL 1.90-7 .00 Basophils 0 % 0-2 Eosinophils 2 % 0-4 HCT 36.6 % 42.0-52.0 HGB 11.9 g/dL 14.0-18.0 Immature Granulocytes 0.4 % 0.0-1.0 Lymphocytes 16 % 20-46 MCH 32.9 pg 27.0-32.0 MCHC 32.5 g/dL 32.0-36.0 MCV 101.1 fL 82.0-99.0 Monocytes 9 % 4-11 MPV 8.8 fL 9.4-12.3 Neutrophils 73 % 51-75 Nucleated RBC Automated 0.0 /100 WBC Platelet Count 173 K/uL 150-400 RBC 3.62 10*6/uL 4.60-6.20 RDW 12.8 % 11.5-14.5 WBC 5.2 K/uL 4.8-10.8 Protime (INR) - 01/24/18 04:11 INR 1.1 NA 0.9-1.2 Magnesium - 01/24/18 04:11 Magnesium 2.1 mg/dL 1.8-2.5 Renal Function Panel - 01/24/18 04:11 Albumin 3.1 g/dL 3.5-4.8 Anion Gap 9 mEq/L 3-20 BUN 20 mg/dL 4-20 Calcium 8.4 mg/dL 8.6-10.0 Chloride 98 mEq/L 99-109 CO2 24 mEq/L 22-32 Creatinine 1.25 mg/dL 0.64-1.27 Glucose 79 mg/dL 70-100 Phosphorus 3.0 mg/dL 2.4-4.7 Potassium 4.3 mEq/L 3.6-5.1 Sodium 131 mEq/L 136-144 eGFR - 01/24/18 04:11 eGFR 56 mL/min >60 B12 and Folate - 01/24/18 04:12 Folate 4.8 ng/mL 7.0-31.4 Vitamin B12 221 pg/mL 213-816 Glucose NPT - 01/24/18 15:26 Glucose NPT 88 mg/dL 70-100 Glucose NPT - 01/24/18 21:40 Glucose NPT 104 mg/dL 70-100 CBC With Platelet and Differential - 03:24 Absolute Basophils 0.01 10*3/uL 0.00-0.2 0 Absolute Eosinophils 0.03 10*3/uL 0.00-0 .50 Absolute Lymphocytes 0.66 10*3/uL 0.80-3 .30 Absolute Monocytes 0.26 10*3/uL 0.30-1.0 0 Absolute Neutrophils 6.83 10*3/uL 1.90-7 .00 Basophils 0 % 0-2 Eosinophils 0 % 0-4 HCT 36.7 % 42.0-52.0 HGB 12.0 g/dL 14.0-18.0 Immature Granulocytes 0.3 % 0.0-1.0 Lymphocytes 9 % 20-46 MCH 33.3 pg 27.0-32.0 MCHC 32.7 g/dL 32.0-36.0 MCV 101.9 fL 82.0-99.0 Monocytes 3 % 4-11 MPV 9.2 fL 9.4-12.3 Neutrophils 87 % 51-75 Nucleated RBC Automated 0.0 /100 WBC Platelet Count 204 K/uL 150-400 RBC 3.60 10*6/uL 4.60-6.20 RDW 12.7 % 11.5-14.5 WBC 7.8 K/uL 4.8-10.8 Comprehensive Metabolic Panel (CMP) - 03:24 Albumin 3.0 g/dL 3.5-4.8 Alkaline Phosphatase 76 U/L 26-104 ALT (SGPT) 31 U/L 17-63 Anion Gap 12 mEq/L 3-20 AST (SGOT) 29 U/L 15-41 Bilirubin Total 1.3 mg/dL 0.2-1.2 BUN 19 mg/dL 4-20 Calcium 8.3 mg/dL 8.6-10.0 Chloride 101 mEq/L 99-109 CO2 20 mEq/L 22-32 Creatinine 0.99 mg/dL 0.64-1.27 Globulin 2.6 g/dL 1.9-4.3 Glucose 106 mg/dL 70-100 Potassium 4.2 mEq/L 3.6-5.1 Protein 5.6 g/dL 6.1-7.9 Sodium 133 mEq/L 136-144 Magnesium - 01/25/18 03:24 Magnesium 1.9 mg/dL 1.8-2.5 Renal Function Panel - 01/25/18 03:24 Phosphorus 3.2 mg/dL 2.4-4.7 Basic Metabolic Panel (BMP) - 01/25/18 0 3:24 Anion Gap 12 mEq/L 3-20 BUN 18 mg/dL 4-20 Calcium 8.4 mg/dL 8.6-10.0 Chloride 102 mEq/L 99-109 CO2 20 mEq/L 22-32 Creatinine 1.00 mg/dL 0.64-1.27 Glucose 106 mg/dL 70-100 Potassium 4.2 mEq/L 3.6-5.1 Sodium 134 mEq/L 136-144 eGFR - 01/25/18 03:24 eGFR >60 mL/min >60 eGFR - 01/25/18 03:24 eGFR >60 mL/min >60 CBC With Platelet and Differential - 04:02 Absolute Basophils 0.01 10*3/uL 0.00-0.2 0 Absolute Eosinophils 0.11 10*3/uL 0.00-0 .50 Absolute Lymphocytes 0.68 10*3/uL 0.80-3 .30 Absolute Monocytes 0.79 10*3/uL 0.30-1.0 0 Absolute Neutrophils 6.38 10*3/uL 1.90-7 .00 Basophils 0 % 0-2 Eosinophils 1 % 0-4 HCT 37.3 % 42.0-52.0 HGB 12.2 g/dL 14.0-18.0 Immature Granulocytes 0.3 % 0.0-1.0 Lymphocytes 9 % 20-46 MCH 33.2 pg 27.0-32.0 MCHC 32.7 g/dL 32.0-36.0 MCV 101.4 fL 82.0-99.0 Monocytes 10 % 4-11 MPV 8.9 fL 9.4-12.3 Neutrophils 80 % 51-75 Nucleated RBC Automated 0.0 /100 WBC Platelet Count 180 K/uL 150-400 RBC 3.68 10*6/uL 4.60-6.20 RDW 12.6 % 11.5-14.5 WBC 8.0 K/uL 4.8-10.8 Renal Function Panel - 01/26/18 04:02 Albumin 2.8 g/dL 3.5-4.8 Anion Gap 9 mEq/L 3-20 BUN 13 mg/dL 4-20 Calcium 8.5 mg/dL 8.6-10.0 Chloride 99 mEq/L 99-109 CO2 23 mEq/L 22-32 Creatinine 0.91 mg/dL 0.64-1.27 Glucose 115 mg/dL 70-100 Phosphorus 2.7 mg/dL 2.4-4.7 Potassium 4.3 mEq/L 3.6-5.1 Sodium 131 mEq/L 136-144 Magnesium - 01/26/18 04:02 Magnesium 1.8 mg/dL 1.8-2.5 eGFR - 01/26/18 04:02 eGFR >60 mL/min >60 CBC With Platelet and Differential - 04:17 HCT 33.6 % 42.0-52.0 HGB 11.1 g/dL 14.0-18.0 MCH 33.5 pg 27.0-32.0 MCHC 33.0 g/dL 32.0-36.0 MCV 101.5 fL 82.0-99.0 MPV 9.7 fL 9.4-12.3 Platelet Count 175 K/uL 150-400 RBC 3.31 10*6/uL 4.60-6.20 RDW 12.7 % 11.5-14.5 WBC 8.1 K/uL 4.8-10.8 Magnesium - 01/27/18 04:17 Magnesium 2.1 mg/dL 1.8-2.5 Renal Function Panel - 01/27/18 04:17 Albumin 2.4 g/dL 3.5-4.8 Anion Gap 10 mEq/L 3-20 BUN 15 mg/dL 4-20 Calcium 8.2 mg/dL 8.6-10.0 Chloride 100 mEq/L 99-109 CO2 22 mEq/L 22-32 Creatinine 0.88 mg/dL 0.64-1.27 Glucose 89 mg/dL 70-100 Phosphorus 2.6 mg/dL 2.4-4.7 Potassium 4.1 mEq/L 3.6-5.1 Sodium 132 mEq/L 136-144 eGFR - 01/27/18 04:17 eGFR >60 mL/min >60 Glucose NPT - 01/27/18 15:27 Glucose NPT 97 mg/dL 70-100 CBC With Platelet and Differential - 05:49 Absolute Basophils 0.01 10*3/uL 0.00-0.2 0 Absolute Eosinophils 0.11 10*3/uL 0.00-0 .50 Absolute Lymphocytes 0.53 10*3/uL 0.80-3 .30 Absolute Monocytes 0.50 10*3/uL 0.30-1.0 0 Absolute Neutrophils 7.12 10*3/uL 1.90-7 .00 Basophils 0 % 0-2 Eosinophils 1 % 0-4 HCT 35.5 % 42.0-52.0 HGB 11.8 g/dL 14.0-18.0 Immature Granulocytes 0.4 % 0.0-1.0 Lymphocytes 6 % 20-46 MCH 33.7 pg 27.0-32.0 MCHC 33.2 g/dL 32.0-36.0 MCV 101.4 fL 82.0-99.0 Monocytes 6 % 4-11 MPV 9.3 fL 9.4-12.3 Neutrophils 86 % 51-75 Nucleated RBC Automated 0.0 /100 WBC Platelet Count 204 K/uL 150-400 RBC 3.50 10*6/uL 4.60-6.20 RDW 12.6 % 11.5-14.5 WBC 8.3 K/uL 4.8-10.8 Magnesium - 01/28/18 05:50 Magnesium 1.9 mg/dL 1.8-2.5 Renal Function Panel - 01/28/18 05:50 Albumin 2.6 g/dL 3.5-4.8 Anion Gap 10 mEq/L 3-20 BUN 14 mg/dL 4-20 Calcium 8.6 mg/dL 8.6-10.0 Chloride 100 mEq/L 99-109 CO2 23 mEq/L 22-32 Creatinine 0.78 mg/dL 0.64-1.27 Glucose 94 mg/dL 70-100 Phosphorus 2.6 mg/dL 2.4-4.7 Potassium 3.8 mEq/L 3.6-5.1 Sodium 133 mEq/L 136-144 eGFR - 01/28/18 05:50 eGFR >60 mL/min >60 CBC With Platelet No Differential - 01/06 07/22 04:19 HCT 35.8 % 42.0-52.0 HGB 12.0 g/dL 14.0-18.0 MCH 33.1 pg 27.0-32.0 MCHC 33.5 g/dL 32.0-36.0 MCV 98.9 fL 82.0-99.0 MPV 9.2 fL 9.4-12.3 Platelet Count 212 K/uL 150-400 RBC 3.62 10*6/uL 4.60-6.20 RDW 12.7 % 11.5-14.5 WBC 6.7 K/uL 4.8-10.8 Renal Function Panel - 01/29/18 04:19 Albumin 2.3 g/dL 3.5-4.8 Anion Gap 9 mEq/L 3-20 BUN 10 mg/dL 4-20 Calcium 8.6 mg/dL 8.6-10.0 Chloride 102 mEq/L 99-109 CO2 23 mEq/L 22-32 Creatinine 0.55 mg/dL 0.64-1.27 Glucose 127 mg/dL 70-100 Phosphorus 2.3 mg/dL 2.4-4.7 Potassium 3.0 mEq/L 3.6-5.1 Sodium 134 mEq/L 136-144 Magnesium - 01/29/18 04:19 Magnesium 1.7 mg/dL 1.8-2.5 eGFR - 01/29/18 04:19 eGFR >60 mL/min >60 CBC With Platelet No Differential - 01/06 08/22 03:52 HCT 37.1 % 42.0-52.0 HGB 12.5 g/dL 14.0-18.0 MCH 33.3 pg 27.0-32.0 MCHC 33.7 g/dL 32.0-36.0 MCV 98.9 fL 82.0-99.0 MPV 9.3 fL 9.4-12.3 Platelet Count 174 K/uL 150-400 RBC 3.75 10*6/uL 4.60-6.20 RDW 12.7 % 11.5-14.5 WBC 6.2 K/uL 4.8-10.8 Renal Function Panel - 01/30/18 03:52 Albumin 2.2 g/dL 3.5-4.8 Anion Gap 8 mEq/L 3-20 BUN 10 mg/dL 4-20 Calcium 8.8 mg/dL 8.6-10.0 Chloride 102 mEq/L 99-109 CO2 27 mEq/L 22-32 Creatinine 0.56 mg/dL 0.64-1.27 Glucose 153 mg/dL 70-100 Phosphorus 2.5 mg/dL 2.4-4.7 Potassium 3.0 mEq/L 3.6-5.1 Sodium 137 mEq/L 136-144 Magnesium - 01/30/18 03:52 Magnesium 1.6 mg/dL 1.8-2.5 eGFR - 01/30/18 03:52 eGFR >60 mL/min >60 Renal Function Panel - 01/31/18 03:29 Albumin 2.3 g/dL 3.5-4.8 Anion Gap 8 mEq/L 3-20 BUN 10 mg/dL 4-20 Calcium 8.8 mg/dL 8.6-10.0 Chloride 100 mEq/L 99-109 CO2 28 mEq/L 22-32 Creatinine 0.59 mg/dL 0.64-1.27 Glucose 132 mg/dL 70-100 Phosphorus 3.3 mg/dL 2.4-4.7 Potassium 3.6 mEq/L 3.6-5.1 Sodium 136 mEq/L 136-144 Magnesium - 01/31/18 03:29 Magnesium 1.9 mg/dL 1.8-2.5 eGFR - 01/31/18 03:29 eGFR >60 mL/min >60 CBC With Platelet No Differential - 01/06 09/21 04:24 HCT 33.8 % 42.0-52.0 HGB 11.1 g/dL 14.0-18.0 MCH 32.7 pg 27.0-32.0 MCHC 32.8 g/dL 32.0-36.0 MCV 99.7 fL 82.0-99.0 MPV 9.3 fL 9.4-12.3 Platelet Count 182 K/uL 150-400 RBC 3.39 10*6/uL 4.60-6.20 RDW 13.1 % 11.5-14.5 WBC 6.4 K/uL 4.8-10.8 CBC With Platelet No Differential - 01/06 10/22 05:44 HCT 35.4 % 42.0-52.0 HGB 11.3 g/dL 14.0-18.0 MCH 32.1 pg 27.0-32.0 MCHC 31.9 g/dL 32.0-36.0 MCV 100.6 fL 82.0-99.0 MPV 9.3 fL 9.4-12.3 Platelet Count 186 K/uL 150-400 RBC 3.52 10*6/uL 4.60-6.20 RDW 13.6 % 11.5-14.5 WBC 7.0 K/uL 4.8-10.8 Renal Function Panel - 02/01/18 05:44 Albumin 2.3 g/dL 3.5-4.8 Anion Gap 11 mEq/L 3-20 BUN 10 mg/dL 4-20 Calcium 8.9 mg/dL 8.6-10.0 Chloride 100 mEq/L 99-109 CO2 27 mEq/L 22-32 Creatinine 0.74 mg/dL 0.64-1.27 Glucose 121 mg/dL 70-100 Phosphorus 2.7 mg/dL 2.4-4.7 Potassium 4.1 mEq/L 3.6-5.1 Sodium 138 mEq/L 136-144 Magnesium - 02/01/18 05:44 Magnesium 1.9 mg/dL 1.8-2.5 eGFR - 02/01/18 05:44 eGFR >60 mL/min >60 CBC With Platelet No Differential - 01/06 11/22 03:31 HCT 34.1 % 42.0-52.0 HGB 11.0 g/dL 14.0-18.0 MCH 32.6 pg 27.0-32.0 MCHC 32.3 g/dL 32.0-36.0 MCV 101.2 fL 82.0-99.0 MPV 9.5 fL 9.4-12.3 Platelet Count 160 K/uL 150-400 RBC 3.37 10*6/uL 4.60-6.20 RDW 13.7 % 11.5-14.5 WBC 7.4 K/uL 4.8-10.8 Renal Function Panel - 02/02/18 03:31 Albumin 2.3 g/dL 3.5-4.8 Anion Gap 6 mEq/L 3-20 BUN 13 mg/dL 4-20 Calcium 8.5 mg/dL 8.6-10.0 Chloride 102 mEq/L 99-109 CO2 29 mEq/L 22-32 Creatinine 0.75 mg/dL 0.64-1.27 Glucose 129 mg/dL 70-100 Phosphorus 2.9 mg/dL 2.4-4.7 Potassium 4.0 mEq/L 3.6-5.1 Sodium 137 mEq/L 136-144 Magnesium - 02/02/18 03:31 Magnesium 2.1 mg/dL 1.8-2.5 eGFR - 02/02/18 03:31 eGFR >60 mL/min >60 CBC With Platelet No Differential - 01/07 03:43 HCT 33.1 % 42.0-52.0 HGB 10.9 g/dL 14.0-18.0 MCH 33.2 pg 27.0-32.0 MCHC 32.9 g/dL 32.0-36.0 MCV 100.9 fL 82.0-99.0 MPV 9.5 fL 9.4-12.3 Platelet Count 141 K/uL 150-400 RBC 3.28 10*6/uL 4.60-6.20 RDW 14.0 % 11.5-14.5 WBC 6.5 K/uL 4.8-10.8 Renal Function Panel - 02/03/18 03:43 Albumin 2.2 g/dL 3.5-4.8 Anion Gap 8 mEq/L 3-20 BUN 21 mg/dL 4-20 Calcium 8.5 mg/dL 8.6-10.0 Chloride 103 mEq/L 99-109 CO2 28 mEq/L 22-32 Creatinine 0.78 mg/dL 0.64-1.27 Glucose 120 mg/dL 70-100 Phosphorus 3.2 mg/dL 2.4-4.7 Potassium 4.3 mEq/L 3.6-5.1 Sodium 139 mEq/L 136-144 Magnesium - 02/03/18 03:43 Magnesium 2.3 mg/dL 1.8-2.5 eGFR - 02/03/18 03:43 eGFR >60 mL/min >60 CBC With Platelet No Differential - 04/24 13:05 HCT 35.0 % 42.0-52.0 HGB 11.1 g/dL 14.0-18.0 MCH 32.6 pg 27.0-32.0 MCHC 31.7 g/dL 32.0-36.0 MCV 102.9 fL 82.0-99.0 MPV 9.5 fL 9.4-12.3 Platelet Count 161 K/uL 150-400 RBC 3.40 10*6/uL 4.60-6.20 RDW 13.6 % 11.5-14.5 WBC 8.3 K/uL 4.8-10.8 Comprehensive Metabolic Panel (CMP) - 13:05 Albumin 2.5 g/dL 3.5-4.8 Alkaline Phosphatase 88 U/L 26-104 ALT (SGPT) 29 U/L 17-63 Anion Gap 11 mEq/L 3-20 AST (SGOT) 34 U/L 15-41 Bilirubin Total 0.9 mg/dL 0.2-1.2 BUN 24 mg/dL 4-20 Calcium 8.4 mg/dL 8.6-10.0 Chloride 108 mEq/L 99-109 CO2 23 mEq/L 22-32 Creatinine 0.79 mg/dL 0.64-1.27 Globulin 3.0 g/dL 1.9-4.3 Glucose 91 mg/dL 70-100 Potassium 3.8 mEq/L 3.6-5.1 Protein 5.5 g/dL 6.1-7.9 Sodium 142 mEq/L 136-144 eGFR - 02/05/18 13:05 eGFR >60 mL/min >60 Glucose NPT - 02/05/18 15:23 Glucose NPT 80 mg/dL 70-100 CBC With Platelet No Differential - 05/22 04:49 HCT 33.7 % 42.0-52.0 HGB 10.9 g/dL 14.0-18.0 MCH 33.3 pg 27.0-32.0 MCHC 32.3 g/dL 32.0-36.0 MCV 103.1 fL 82.0-99.0 MPV 9.4 fL 9.4-12.3 Platelet Count 170 K/uL 150-400 RBC 3.27 10*6/uL 4.60-6.20 RDW 13.5 % 11.5-14.5 WBC 9.6 K/uL 4.8-10.8 Renal Function Panel - 02/06/18 04:49 Albumin 2.4 g/dL 3.5-4.8 Anion Gap 10 mEq/L 3-20 BUN 21 mg/dL 4-20 Calcium 8.4 mg/dL 8.6-10.0 Chloride 107 mEq/L 99-109 CO2 25 mEq/L 22-32 Creatinine 0.81 mg/dL 0.64-1.27 Glucose 79 mg/dL 70-100 Phosphorus 2.9 mg/dL 2.4-4.7 Potassium 3.6 mEq/L 3.6-5.1 Sodium 142 mEq/L 136-144 Magnesium - 02/06/18 04:49 Magnesium 2.2 mg/dL 1.8-2.5 eGFR - 02/06/18 04:49 eGFR >60 mL/min >60 CBC With Platelet No Differential - 08/22 05:22 HCT 32.1 % 42.0-52.0 HGB 10.2 g/dL 14.0-18.0 MCH 33.1 pg 27.0-32.0 MCHC 31.8 g/dL 32.0-36.0 MCV 104.2 fL 82.0-99.0 MPV 9.7 fL 9.4-12.3 Platelet Count 241 K/uL 150-400 RBC 3.08 10*6/uL 4.60-6.20 RDW 13.6 % 11.5-14.5 WBC 7.0 K/uL 4.8-10.8 Renal Function Panel - 02/09/18 05:22 Albumin 2.4 g/dL 3.5-4.8 Anion Gap 8 mEq/L 3-20 BUN 18 mg/dL 4-20 Calcium 8.3 mg/dL 8.6-10.0 Chloride 106 mEq/L 99-109 CO2 28 mEq/L 22-32 Creatinine 0.67 mg/dL 0.64-1.27 Glucose 100 mg/dL 70-100 Phosphorus 1.7 mg/dL 2.4-4.7 Potassium 4.0 mEq/L 3.6-5.1 Sodium 142 mEq/L 136-144 eGFR - 02/09/18 05:22 eGFR >60 mL/min >60 Magnesium - 02/09/18 05:22 Magnesium 2.0 mg/dL 1.8-2.5 Renal Function Panel - 02/10/18 05:32 Albumin 2.4 g/dL 3.5-4.8 Anion Gap 8 mEq/L 3-20 BUN 19 mg/dL 4-20 Calcium 8.4 mg/dL 8.6-10.0 Chloride 102 mEq/L 99-109 CO2 29 mEq/L 22-32 Creatinine 0.65 mg/dL 0.64-1.27 Glucose 134 mg/dL 70-100 Phosphorus 2.5 mg/dL 2.4-4.7 Potassium 4.0 mEq/L 3.6-5.1 Sodium 139 mEq/L 136-144 eGFR - 02/10/18 05:32 eGFR >60 mL/min >60 CBC With Platelet No Differential - 10/22 10:05 HCT 33.1 % 42.0-52.0 HGB 10.5 g/dL 14.0-18.0 MCH 32.5 pg 27.0-32.0 MCHC 31.7 g/dL 32.0-36.0 MCV 102.5 fL 82.0-99.0 MPV 9.4 fL 9.4-12.3 Platelet Count 286 K/uL 150-400 RBC 3.23 10*6/uL 4.60-6.20 RDW 13.4 % 11.5-14.5 WBC 6.0 K/uL 4.8-10.8 Renal Function Panel - 02/11/18 10:05 Albumin 2.7 g/dL 3.5-4.8 Anion Gap 11 mEq/L 3-20 BUN 13 mg/dL 4-20 Calcium 8.7 mg/dL 8.6-10.0 Chloride 102 mEq/L 99-109 CO2 27 mEq/L 22-32 Creatinine 0.63 mg/dL 0.64-1.27 Glucose 117 mg/dL 70-100 Phosphorus 2.3 mg/dL 2.4-4.7 Potassium 3.9 mEq/L 3.6-5.1 Sodium 140 mEq/L 136-144 Magnesium - 02/11/18 10:05 Magnesium 2.0 mg/dL 1.8-2.5 eGFR - 02/11/18 10:05 eGFR >60 mL/min >60 CBC With Platelet No Differential - 11/22 08:46 HCT 33.4 % 42.0-52.0 HGB 10.6 g/dL 14.0-18.0 MCH 32.6 pg 27.0-32.0 MCHC 31.7 g/dL 32.0-36.0 MCV 102.8 fL 82.0-99.0 MPV 10.1 fL 9.4-12.3 Platelet Count 337 K/uL 150-400 RBC 3.25 10*6/uL 4.60-6.20 RDW 13.5 % 11.5-14.5 WBC 6.6 K/uL 4.8-10.8 Renal Function Panel - 02/12/18 08:46 Albumin 2.6 g/dL 3.5-4.8 Anion Gap 9 mEq/L 3-20 BUN 15 mg/dL 4-20 Calcium 8.8 mg/dL 8.6-10.0 Chloride 104 mEq/L 99-109 CO2 27 mEq/L 22-32 Creatinine 0.68 mg/dL 0.64-1.27 Glucose 96 mg/dL 70-100 Phosphorus 3.0 mg/dL 2.4-4.7 Potassium 4.1 mEq/L 3.6-5.1 Sodium 140 mEq/L 136-144 Magnesium - 02/12/18 08:46 Magnesium 2.1 mg/dL 1.8-2.5 eGFR - 02/12/18 08:46 eGFR >60 mL/min >60 Glucose NPT - 02/12/18 12:36 Glucose NPT 99 mg/dL 70-100 CBC With Platelet No Differential - 02/04 04:42 HCT 31.4 % 42.0-52.0 HGB 9.9 g/dL 14.0-18.0 MCH 32.6 pg 27.0-32.0 MCHC 31.5 g/dL 32.0-36.0 MCV 103.3 fL 82.0-99.0 MPV 9.6 fL 9.4-12.3 Platelet Count 307 K/uL 150-400 RBC 3.04 10*6/uL 4.60-6.20 RDW 13.8 % 11.5-14.5 WBC 7.6 K/uL 4.8-10.8 Basic Metabolic Panel (BMP) - 02/13/18 0 4:42 Anion Gap 6 mEq/L 3-20 BUN 26 mg/dL 4-20 Calcium 8.5 mg/dL 8.6-10.0 Chloride 104 mEq/L 99-109 CO2 29 mEq/L 22-32 Creatinine 0.82 mg/dL 0.64-1.27 Glucose 121 mg/dL 70-100 Potassium 4.3 mEq/L 3.6-5.1 Sodium 139 mEq/L 136-144 Magnesium - 02/13/18 04:42 Magnesium 2.2 mg/dL 1.8-2.5 eGFR - 02/13/18 04:42 eGFR >60 mL/min >60 CBC With Platelet No Differential - 02/04 03/24 05:47 HCT 31.1 % 42.0-52.0 HGB 9.8 g/dL 14.0-18.0 MCH 32.5 pg 27.0-32.0 MCHC 31.5 g/dL 32.0-36.0 MCV 103.0 fL 82.0-99.0 MPV 9.1 fL 9.4-12.3 Platelet Count 281 K/uL 150-400 RBC 3.02 10*6/uL 4.60-6.20 RDW 13.9 % 11.5-14.5 WBC 8.7 K/uL 4.8-10.8 Basic Metabolic Panel (BMP) - 02/14/18 0 5:47 BUN 24 mg/dL 4-20 Creatinine 0.82 mg/dL 0.64-1.27 Glucose 114 mg/dL 70-100 Magnesium - 02/14/18 05:47 Magnesium 2.2 mg/dL 1.8-2.5 eGFR - 02/14/18 05:47 eGFR >60 mL/min >60 CBC With Platelet No Differential - 02/04 04/24 06:15 HCT 30.9 % 42.0-52.0 HGB 9.7 g/dL 14.0-18.0 MCH 32.0 pg 27.0-32.0 MCHC 31.4 g/dL 32.0-36.0 MCV 102.0 fL 82.0-99.0 MPV 9.2 fL 9.4-12.3 Platelet Count 302 K/uL 150-400 RBC 3.03 10*6/uL 4.60-6.20 RDW 13.9 % 11.5-14.5 WBC 7.5 K/uL 4.8-10.8 Basic Metabolic Panel (BMP) - 02/15/18 0 6:15 Anion Gap 7 mEq/L 3-20 BUN 25 mg/dL 4-20 Calcium 8.5 mg/dL 8.6-10.0 Chloride 103 mEq/L 99-109 CO2 31 mEq/L 22-32 Creatinine 0.81 mg/dL 0.64-1.27 Glucose 125 mg/dL 70-100 Potassium 4.5 mEq/L 3.6-5.1 Sodium 141 mEq/L 136-144 Magnesium - 02/15/18 06:15 Magnesium 2.3 mg/dL 1.8-2.5 eGFR - 02/15/18 06:15 eGFR >60 mL/min >60 CBC With Platelet No Differential - 02/04 05/22 05:55 HCT 32.0 % 42.0-52.0 HGB 9.9 g/dL 14.0-18.0 MCH 32.0 pg 27.0-32.0 MCHC 30.9 g/dL 32.0-36.0 MCV 103.6 fL 82.0-99.0 MPV 9.4 fL 9.4-12.3 Platelet Count 319 K/uL 150-400 RBC 3.09 10*6/uL 4.60-6.20 RDW 14.0 % 11.5-14.5 WBC 6.1 K/uL 4.8-10.8 Basic Metabolic Panel (BMP) - 02/16/18 0 5:55 Anion Gap 7 mEq/L 3-20 BUN 25 mg/dL 4-20 Calcium 8.8 mg/dL 8.6-10.0 Chloride 104 mEq/L 99-109 CO2 32 mEq/L 22-32 Creatinine 0.79 mg/dL 0.64-1.27 Glucose 108 mg/dL 70-100 Potassium 4.3 mEq/L 3.6-5.1 Sodium 143 mEq/L 136-144 eGFR - 02/16/18 05:55 eGFR >60 mL/min >60 CBC With Platelet No Differential - 02/04 06/22 09:25 HCT 32.3 % 42.0-52.0 HGB 9.9 g/dL 14.0-18.0 MCH 31.6 pg 27.0-32.0 MCHC 30.7 g/dL 32.0-36.0 MCV 103.2 fL 82.0-99.0 MPV 9.2 fL 9.4-12.3 Platelet Count 331 K/uL 150-400 RBC 3.13 10*6/uL 4.60-6.20 RDW 14.2 % 11.5-14.5 WBC 8.0 K/uL 4.8-10.8 Basic Metabolic Panel (BMP) - 02/17/18 0 9:25 Anion Gap 9 mEq/L 3-20 BUN 23 mg/dL 4-20 Calcium 8.7 mg/dL 8.6-10.0 Chloride 104 mEq/L 99-109 CO2 29 mEq/L 22-32 Creatinine 0.76 mg/dL 0.64-1.27 Glucose 119 mg/dL 70-100 Potassium 4.3 mEq/L 3.6-5.1 Sodium 142 mEq/L 136-144 Valproic Acid - 02/17/18 09:25 Valproic Acid 31 ug/mL 50-125 eGFR - 02/17/18 09:25 eGFR >60 mL/min >60 CBC With Platelet No Differential - 02/04 07/22 05:49 HCT 29.9 % 42.0-52.0 HGB 9.2 g/dL 14.0-18.0 MCH 31.7 pg 27.0-32.0 MCHC 30.8 g/dL 32.0-36.0 MCV 103.1 fL 82.0-99.0 MPV 9.5 fL 9.4-12.3 Platelet Count 325 K/uL 150-400 RBC 2.90 10*6/uL 4.60-6.20 RDW 14.1 % 11.5-14.5 WBC 6.9 K/uL 4.8-10.8 Basic Metabolic Panel (BMP) - 02/18/18 0 5:49 Anion Gap 10 mEq/L 3-20 BUN 27 mg/dL 4-20 Calcium 8.6 mg/dL 8.6-10.0 Chloride 105 mEq/L 99-109 CO2 30 mEq/L 22-32 Creatinine 0.73 mg/dL 0.64-1.27 Glucose 118 mg/dL 70-100 Potassium 3.9 mEq/L 3.6-5.1 Sodium 145 mEq/L 136-144 eGFR - 02/18/18 05:49 eGFR >60 mL/min >60 Urinalysis with reflex microscopic - 11:10 Appearance Cloudy NA Bilirubin Negative NA Negative Blood Negative NA Negative Color Yellow NA Glucose, Urine Negative Negative Ketones Trace Negative Leukocyte Esterase Pos 1+ NA Negative Nitrites Negative NA Negative pH 7.0 NA 5.0-8.0 Protein Pos 1+ NA Negative Specific [place] 1.025 NA 1.003-1.030 UA Collection type Ferrer NA Urobilinogen 2.0 mg/dL <1.0 Urine Microscopic - 02/18/18 11:10 Bacteria Numerous NA None Seen-Rare Epithelial Cells 0 /HPF RBC, Urine 2 /HPF 0-2 Urine Mucus Present NA WBC, Urine 5 /HPF 0-4 CBC With Platelet No Differential - 02/04 09/21 04:20 HCT 30.1 % 42.0-52.0 HGB 9.4 g/dL 14.0-18.0 MCH 32.1 pg 27.0-32.0 MCHC 31.2 g/dL 32.0-36.0 MCV 102.7 fL 82.0-99.0 MPV 9.2 fL 9.4-12.3 Platelet Count 345 K/uL 150-400 RBC 2.93 10*6/uL 4.60-6.20 RDW 14.1 % 11.5-14.5 WBC 5.7 K/uL 4.8-10.8 Renal Function Panel - 02/20/18 04:20 Albumin 2.0 g/dL 3.5-4.8 Anion Gap 7 mEq/L 3-20 BUN 24 mg/dL 4-20 Calcium 8.5 mg/dL 8.6-10.0 Chloride 109 mEq/L 99-109 CO2 27 mEq/L 22-32 Creatinine 0.74 mg/dL 0.64-1.27 Glucose 199 mg/dL 70-100 Phosphorus 2.3 mg/dL 2.4-4.7 Potassium 4.5 mEq/L 3.6-5.1 Sodium 143 mEq/L 136-144 eGFR - 02/20/18 04:20 eGFR >60 mL/min >60 Valproic Acid - 02/22/18 07:11 Valproic Acid 38 ug/mL 50-125 CBC With Platelet No Differential - 02/05 04/24 07:22 HCT 29.4 % 42.0-52.0 HGB 9.2 g/dL 14.0-18.0 MCH 32.2 pg 27.0-32.0 MCHC 31.3 g/dL 32.0-36.0 MCV 102.8 fL 82.0-99.0 MPV 9.2 fL 9.4-12.3 Platelet Count 284 K/uL 150-400 RBC 2.86 10*6/uL 4.60-6.20 RDW 14.5 % 11.5-14.5 WBC 6.9 K/uL 4.8-10.8 Comprehensive Metabolic Panel (CMP) - 07:22 Albumin 2.2 g/dL 3.5-4.8 Alkaline Phosphatase 83 U/L 26-104 ALT (SGPT) 14 U/L 17-63 Anion Gap 6 mEq/L 3-20 AST (SGOT) 15 U/L 15-41 Bilirubin Total 0.2 mg/dL 0.2-1.2 BUN 18 mg/dL 4-20 Calcium 8.4 mg/dL 8.6-10.0 Chloride 107 mEq/L 99-109 CO2 29 mEq/L 22-32 Creatinine 0.65 mg/dL 0.64-1.27 Globulin 3.0 g/dL 1.9-4.3 Glucose 133 mg/dL 70-100 Potassium 4.6 mEq/L 3.6-5.1 Protein 5.2 g/dL 6.1-7.9 Sodium 142 mEq/L 136-144 eGFR - 02/25/18 07:22 eGFR >60 mL/min >60 Renal Function Panel - 02/27/18 05:12 Albumin 2.3 g/dL 3.5-4.8 Anion Gap 5 mEq/L 3-20 BUN 19 mg/dL 4-20 Calcium 8.3 mg/dL 8.6-10.0 Chloride 107 mEq/L 99-109 CO2 28 mEq/L 22-32 Creatinine 0.70 mg/dL 0.64-1.27 Glucose 116 mg/dL 70-100 Phosphorus 2.9 mg/dL 2.4-4.7 Potassium 4.2 mEq/L 3.6-5.1 Sodium 140 mEq/L 136-144 Magnesium - 02/27/18 05:12 Magnesium 2.1 mg/dL 1.8-2.5 eGFR - 02/27/18 05:12 eGFR >60 mL/min >60 CBC With Platelet No Differential - 02/05 10/22 06:07 HCT 28.4 % 42.0-52.0 HGB 8.9 g/dL 14.0-18.0 MCH 31.9 pg 27.0-32.0 MCHC 31.3 g/dL 32.0-36.0 MCV 101.8 fL 82.0-99.0 MPV 9.2 fL 9.4-12.3 Platelet Count 234 K/uL 150-400 RBC 2.79 10*6/uL 4.60-6.20 RDW 15.3 % 11.5-14.5 WBC 6.1 K/uL 4.8-10.8 Renal Function Panel - 03/03/18 06:07 Albumin 2.4 g/dL 3.5-4.8 Anion Gap 7 mEq/L 3-20 BUN 25 mg/dL 4-20 Calcium 8.3 mg/dL 8.6-10.0 Chloride 104 mEq/L 99-109 CO2 26 mEq/L 22-32 Creatinine 0.94 mg/dL 0.64-1.27 Glucose 146 mg/dL 70-100 Phosphorus 3.6 mg/dL 2.4-4.7 Potassium 4.2 mEq/L 3.6-5.1 Sodium 137 mEq/L 136-144 Magnesium - 03/03/18 06:07 Magnesium 2.1 mg/dL 1.8-2.5 eGFR - 03/03/18 06:07 eGFR >60 mL/min >60 CBC W/AUTODIFF - 05/25/18 07:10 BASO# 0.02 1000/uL 0.0 - 0.3 BASO% 0.3 % 0.0 - 3.0 EOS# 0.39 1000/uL 0.0 - 0.6 EOS% 6.0 % 0.0 - 5.0 HEMATOCRIT 30.7 % 33 - 51 HEMOGLOBIN 9.9 G/DL 12.0 - 16.0 LYMPHS# 1.02 1000/uL 1.0 - 4.8 LYMPHS% 15.8 % 24.0 - 44.0 MCH 30.4 PG/ML 26.0 - 34.0 MCHC 32.2 % 32.0 - 36.0 MCV 94.2 FL 80.0 - 100.0 MONO# 0.64 1000/uL 0.1 - 1.3 MONO% 9.9 % 2.0 - 12.0 MPV 9.5 FL 6.5 - 10.0 NEUT# 4.38 1000/uL 1.4 - 8.1 NEUT% 68.0 % 36.0 - 74.0 PLATELET AUTOMATED 222 1000/uL 150 - 450 RBC-CBC 3.26 [id number] 4.00 - 5.20 RDW-CV 14.0 % 11.5 - 13.1 WBC-CBC 6.45 1000/uL 4.5 - 11.0 MANUAL DIFF? NO CHARGE CBC W/DIFF - 05/25/18 07:10 CHARGE CBC W/DIFF DONE COMPREHENSIVE METABOLIC PANEL - 05/25/18 07:10 ALBUMIN 3.1 G/DL 3.90 - 4.90 BUN 16 MG/DL 9.0 - 23.0 CO2 29.1 MMOL/L 21 - 32 GLUCOSE 96 MG/DL 70 - 106 CREATININE, SERUM 1.14 MG/DL 0.55 - 1.30 SODIUM SERUM 145 MMOL/L 134 - 145 POTASSIUM SERUM 4.2 MMOL/L 3.5 - 5.1 CHLORIDE, SERUM 107 MMOL/L 96 - 108 CALCIUM LEVEL 8.9 MG/DL 8.5 - 10.1 BILIRUBIN TOTAL 0.23 MG/DL 0.10 - 1.70 ALKALINE PHOSPHATASE 126 U/L 50 - 136 AST (SGOT) 11 U/L 16 - 40 ALT (SGPT) 13 U/L 12 - 78 TOTAL PROTEIN 6.0 G/DL 6.8 - 8.1 TSH - 05/25/18 07:10 TSH 0.764 uIU/ML 0.36 - 3.74 URINALYSIS - 05/25/18 07:10 NITRITE Negative NEGATIVE UROBILINOGEN 0.2 E.U./dL EU/DL 0.2 COLOR UA Light yellow YELLOW CLARITY UA Clear CLEAR GLUCOSE, UR Negative NEGATIVE BILIRUBIN, UR Negative NEGATIVE KETONES UR Negative NEGATIVE SPECIFIC GRAVITY 1.015 SG 1.018 - 1.035 BLOOD, UR Negative NEGATIVE PH, UR 7.0 PH 5.0 - 6.0 PROTEIN, UR Negative NEGATIVE LEUKOCYTES ESTERASE Negative NEGATIVE WBC, UR NONE SEEN /HPF NONE SEEN RBC, UR NONE SEEN /HPF NONE SEEN EPITHELIAL CELLS 0-2 /HPF NONE SEEN BACTERIA UR NONE SEEN /HPF NONE SEEN MUCOUS UR NONE SEEN /HPF NONE SEEN CASTS UR NONE SEEN NONE SEEN CRYSTALS UR NONE SEEN NONE SEEN BASIC METABOLIC PANEL - 06/05/18 07:35 BUN 16 MG/DL 9.0 - 23.0 CO2 28.7 MMOL/L 21 - 32 GLUCOSE 94 MG/DL 70 - 106 CREATININE, SERUM 1.27 MG/DL 0.55 - 1.30 SODIUM SERUM 141 MMOL/L 134 - 145 POTASSIUM SERUM 4.7 MMOL/L 3.5 - 5.1 CHLORIDE, SERUM 104 MMOL/L 96 - 108 CALCIUM LEVEL 9.1 MG/DL 8.5 - 10.1 BNP RAPID - 06/06/18 07:15 BNP RAPID 20 PG/ML 0 - 50 CBC - 06/06/18 07:15 HEMATOCRIT 30.4 % 33 - 51 HEMOGLOBIN 9.9 G/DL 12.0 - 16.0 MCH 30.5 PG/ML 26.0 - 34.0 MCHC 32.6 % 32.0 - 36.0 MCV 93.5 FL 80.0 - 100.0 MPV 9.6 FL 6.5 - 10.0 PLATELET AUTOMATED 262 1000/uL 150 - 450 RBC-CBC 3.25 [id number] 4.00 - 5.20 RDW-CV 14.3 % 11.5 - 13.1 WBC-CBC 6.50 1000/uL 4.5 - 11.0 D-DIMER QUANT - 06/06/18 07:15 D-DIMER QUANT 1.29 mg/L 0.19 - 0.49 CBC - 06/26/18 11:53 HEMATOCRIT 32.0 % 37 - 53 HEMOGLOBIN 10.4 G/DL 13.5 - 17.5 MCH 30.3 PG/ML 26.0 - 34.0 MCHC 32.5 % 32.0 - 36.0 MCV 93.3 FL 80.0 - 100.0 MPV 9.5 FL 6.5 - 10.0 PLATELET AUTOMATED 262 1000/uL 150 - 450 RBC-CBC 3.43 [id number] 4.50 - 5.90 RDW-CV 14.0 % 11.5 - 13.1 WBC-CBC 6.79 1000/uL 4.5 - 11.0 URINALYSIS W/CULTURE REFLEX - 07/03/18 0 8:00 NITRITE Negative NEGATIVE UROBILINOGEN 0.2 E.U./dL EU/DL 0.2 COLOR UA Yellow YELLOW CLARITY UA Clear CLEAR GLUCOSE, UR Negative NEGATIVE BILIRUBIN, UR Negative NEGATIVE KETONES UR Negative NEGATIVE SPECIFIC GRAVITY 1.015 SG 1.018 - 1.035 BLOOD, UR Negative NEGATIVE PH, UR 7.5 PH 5.0 - 6.0 PROTEIN, UR Negative NEGATIVE LEUKOCYTES ESTERASE Negative NEGATIVE WBC, UR NONE SEEN /HPF NONE SEEN RBC, UR NONE SEEN /HPF NONE SEEN EPITHELIAL CELLS NONE SEEN /HPF NONE SEE N BACTERIA UR NONE SEEN /HPF NONE SEEN MUCOUS UR NONE SEEN /HPF NONE SEEN CASTS UR NONE SEEN NONE SEEN CRYSTALS UR NONE SEEN NONE SEEN CULTURE INDICATED? NO NO CBC - 07/05/18 05:00 HEMATOCRIT 32.1 % 37 - 53 HEMOGLOBIN 10.2 G/DL 13.5 - 17.5 MCH 29.7 PG/ML 26.0 - 34.0 MCHC 31.8 % 32.0 - 36.0 MCV 93.6 FL 80.0 - 100.0 MPV 9.6 FL 6.5 - 10.0 PLATELET AUTOMATED 234 1000/uL 150 - 450 RBC-CBC 3.43 [id number] 4.50 - 5.90 RDW-CV 14.2 % 11.5 - 13.1 WBC-CBC 7.20 1000/uL 4.5 - 11.0 COMPREHENSIVE METABOLIC PANEL - 07/05/18 05:00 ALBUMIN 3.7 G/DL 3.90 - 4.90 BUN 14 MG/DL 9.0 - 23.0 CO2 29.8 MMOL/L 21 - 32 GLUCOSE 94 MG/DL 70 - 106 CREATININE, SERUM 1.22 MG/DL 0.55 - 1.30 SODIUM SERUM 140 MMOL/L 134 - 145 POTASSIUM SERUM 4.6 MMOL/L 3.5 - 5.1 CHLORIDE, SERUM 104 MMOL/L 96 - 108 CALCIUM LEVEL 9.0 MG/DL 8.5 - 10.1 BILIRUBIN TOTAL 0.33 MG/DL 0.10 - 1.70 ALKALINE PHOSPHATASE 113 U/L 50 - 136 AST (SGOT) 13 U/L 16 - 40 ALT (SGPT) 18 U/L 12 - 78 TOTAL PROTEIN 6.6 G/DL 6.8 - 8.1 Complete blood count (CBC) with automate d white blood cell (WBC) differential - 08/28/18 14:48 Blood leukocytes automated count (number/volume) 6.0 10*3/uL 4.3-11.0 Blood erythrocytes automated count (number/volume) 3.36 10*6/uL 4.35-5.85 Venous blood hemoglobin measurement (mass/volume) 10.0 g/dL 13.3-17.7 Blood hematocrit (volume fraction) 32 % 40-54 Automated erythrocyte mean corpuscular volume 96 [ foz_us] 80-99 Automated erythrocyte mean corpuscular h emoglobin (mass per erythrocyte) 30 pg 25-34 Automated erythrocyte mean corpuscular h emoglobin concentration measurement (mass/volume) 31 g/dL 32-36 Automated erythrocyte distribution width ratio 14. 8 % 10.0- 14.5 Automated blood platelet count (count/volume) 188 10*3/uL 130-400 Automated blood platelet mean volume measurement 8.8 [foz_us] 7.4-10.4 Automated blood neutrophils/100 leukocytes 67 % 42-75 Automated blood lymphocytes/100 leukocytes 17 % 12-44 Blood monocytes/100 leukocytes 10 % 0-12 Automated blood eosinophils/100 leukocytes 6 % 0-10 Automated blood basophils/100 leukocytes 1 % 0-10 Blood neutrophils automated count (number/volume) 4.0 10*3 1.8-7.8 Blood lymphocytes automated count (number/volume) 1.0 10*3 1.0-4.0 Blood monocytes automated count (number/volume) 0. 6 10*3 0.0-1.0 Automated eosinophil count 0.3 10*3/uL 0 .0-0.3 Automated blood basophil count (count/volume) 0.0 10*3/uL 0.0-0.1 Comprehensive metabolic panel - 08/28/18 14:48 Serum or plasma sodium measurement (moles/volume) 141 mmol/L 135-145 Serum or plasma potassium measurement (moles/volume) 4.3 mmol/L 3.6-5.0 Serum or plasma chloride measurement (moles/volume) 106 mmol/L 98-107 Carbon dioxide 26 mmol/L 21-32 Serum or plasma anion gap determination (moles/volume) 9 mmol/L 5-14 Serum or plasma urea nitrogen measurement (mass/volume ) 28 mg/dL 7-18 Serum or plasma creatinine measurement (mass/volume) 1.32 mg/dL 0.60-1.30 Serum or plasma urea nitrogen/creatinine mass ratio 21 NRG Serum or plasma creatinine measurement w ith calculation of estimated glomerular filtration rate 52 NRG Serum or plasma glucose measurement (mass/volume) 115 mg/dL 70-105 Serum or plasma calcium measurement (mass/volume) 9.1 mg/dL 8.5-10.1 Serum or plasma total bilirubin measurement (mass/volu me) 0.3 mg/dL 0.1-1.0 Serum or plasma alkaline phosphatase eugenia surement (enzymatic activity/volume) 97 U/L 40-136 Serum or plasma aspartate aminotransfera se measurement (enzymatic activity/volume) 8 U/L 5-34 Serum or plasma alanine aminotransferase measurement (enzymatic activity/volume) 9 U/L 0-55 Serum or plasma protein measurement (mass/volume) 6.0 g/dL 6.4-8.2 Serum or plasma albumin measurement (mass/volume) 3.8 g/dL 3.2-4.5 CALCIUM CORRECTED 9.3 mg/dL 8.5-10.1 Serum or plasma lithium measurement (mol es/volume) - 10/31/18 12:30 BNP PT 56.8 pg/mL <100.0 Complete blood count (CBC) with automate d white blood cell (WBC) differential - 10/31/18 12:50 Blood leukocytes automated count (number/volume) 8.7 10*3/uL 4.3-11.0 Blood erythrocytes automated count (number/volume) 3.64 10*6/uL 4.35-5.85 Venous blood hemoglobin measurement (mass/volume) 11.1 g/dL 13.3-17.7 Blood hematocrit (volume fraction) 36 % 40-54 Automated erythrocyte mean corpuscular volume 99 [ foz_us] 80-99 Automated erythrocyte mean corpuscular h emoglobin (mass per erythrocyte) 30 pg 25-34 Automated erythrocyte mean corpuscular h emoglobin concentration measurement (mass/volume) 31 g/dL 32-36 Automated erythrocyte distribution width ratio 14. 4 % 10.0- 14.5 Automated blood platelet count (count/volume) 203 10*3/uL 130-400 Automated blood platelet mean volume measurement 10.1 [foz_us] 7.4-10.4 Automated blood neutrophils/100 leukocytes 76 % 42-75 Automated blood lymphocytes/100 leukocytes 10 % 12-44 Blood monocytes/100 leukocytes 12 % 0-12 Automated blood eosinophils/100 leukocytes 2 % 0-10 Automated blood basophils/100 leukocytes 0 % 0-10 Blood neutrophils automated count (number/volume) 6.6 10*3 1.8-7.8 Blood lymphocytes automated count (number/volume) 0.8 10*3 1.0-4.0 Blood monocytes automated count (number/volume) 1. 1 10*3 0.0-1.0 Automated eosinophil count 0.2 10*3/uL 0 .0-0.3 Automated blood basophil count (count/volume) 0.0 10*3/uL 0.0-0.1 Blood lactic acid measurement (moles/vol ume) - 10/31/18 12:50 Blood lactic acid measurement (moles/volume) 1.08 mmol/L 0.50-2.00 PT panel in platelet poor plasma by coag ulation assay - 10/31/18 12:50 Prothrombin time (PT) in platelet poor plasma by coagu lation assay 14.1 s 12.2-14.7 INR in platelet poor plasma or blood by coagulation as say 1.1 0.8-1.4 Activated partial thromboplastin time (a PTT) in platelet poor plasma bycoagulation assay - 10/31/18 12:50 Activated partial thromboplastin time (a PTT) in platelet poor plasma bycoagulation assay 23 s 24-35 Comprehensive metabolic panel - 10/31/18 12:50 Serum or plasma sodium measurement (moles/volume) 141 mmol/L 135-145 Serum or plasma potassium measurement (moles/volume) 4.5 mmol/L 3.6-5.0 Serum or plasma chloride measurement (moles/volume) 104 mmol/L 98-107 Carbon dioxide 26 mmol/L 21-32 Serum or plasma anion gap determination (moles/volume) 11 mmol/L 5-14 Serum or plasma urea nitrogen measurement (mass/volume ) 19 mg/dL 7-18 Serum or plasma creatinine measurement (mass/volume) 1.01 mg/dL 0.60-1.30 Serum or plasma urea nitrogen/creatinine mass ratio 19 NRG Serum or plasma creatinine measurement w ith calculation of estimated glomerular filtration rate > NRG Serum or plasma glucose measurement (mass/volume) 119 mg/dL 70-105 Serum or plasma calcium measurement (mass/volume) 9.3 mg/dL 8.5-10.1 Serum or plasma total bilirubin measurement (mass/volu me) 0.4 mg/dL 0.1-1.0 Serum or plasma alkaline phosphatase eugenia surement (enzymatic activity/volume) 88 U/L 40-136 Serum or plasma aspartate aminotransfera se measurement (enzymatic activity/volume) 11 U/L 5-34 Serum or plasma alanine aminotransferase measurement (enzymatic activity/volume) 8 U/L 0-55 Serum or plasma protein measurement (mass/volume) 6.7 g/dL 6.4-8.2 Serum or plasma albumin measurement (mass/volume) 3.7 g/dL 3.2-4.5 CALCIUM CORRECTED 9.5 mg/dL 8.5-10.1 Bacterial blood culture - 10/31/18 12:50 Bacterial blood culture NG NRG Arterial blood gas measurement - 9 13:00 Blood pCO2 52 mm[Hg] 35-45 Blood pO2 71 mm[Hg] 79-93 Arterial blood bicarbonate measurement (moles/volume) 30 mmol/L 23-27 Arterial blood base excess by calculation 5.0 mmol /L -2.5-2.5 Arterial blood oxygen saturation measurement 93 % 94-100 * Inhaled oxygen flow rate 2 L NRG Arterial blood pH measurement with patient temperature correction 7.38 7.37-7.43 Arterial blood carbon dioxide, total measurement (mole s/volume) 31.3 mmol/L 21.0-31.0 Body site Not supplied NRG Assessment of wrist artery patency prior to arterial p uncture Not supplied NRG Setting of ventilation mode NO NR G Measurement of body temperature 99.6 NRG Influenza virus A and B antigen detectio n - 10/31/18 13:07 FLU RESULT NEGATIVE FOR INFLUENZA A AND B ANTIGENS BY IA NRG Bacterial blood culture - 10/31/18 13:20 Bacterial blood culture NG NRG Complete urinalysis with reflex to cultu re - 10/31/18 13:50 Urine color determination YELLOW NRG Urine clarity determination CLEAR NR G Urine pH measurement by test strip 5 5-9 Specific gravity of urine by test strip 1.020 1.016-1.022 Urine protein assay by test strip, semi-quantitative NEGATIVE NEGATIVE Urine glucose detection by automated test strip NE GATIVE NEGATIVE Erythrocytes detection in urine sediment by light micr oscopy NEGATIVE NEGATIVE Urine ketones detection by automated test strip NE GATIVE NEGATIVE Urine nitrite detection by test strip NEGATIVE NEGATIVE Urine total bilirubin detection by test strip NEGA TIVE NEGATIVE Urine urobilinogen measurement by automated test strip (mass/volume) NORMAL NORMAL Urine leukocyte esterase detection by dipstick NEG ATIVE NEGATIVE Automated urine sediment erythrocyte cou nt by microscopy (number/high power field) NONE NRG Automated urine sediment leukocyte count by microscopy (number/high power field) NONE NRG Bacteria detection in urine sediment by light microsco py TRACE NRG Squamous epithelial cells detection in u rine sediment by light microscopy RARE NRG Crystals detection in urine sediment by light microsco py NONE NRG Casts detection in urine sediment by light microscopy NONE NRG Mucus detection in urine sediment by light microscopy NEGATIVE NRG Complete urinalysis with reflex to culture NO NRG Urine drug screening test - 10/31/18 13: 50 Urine phencyclidine detection by screening method NEGATIVE NEGATIVE Urine benzodiazepines detection by screening method POSITIVE NEGATIVE Urine cocaine detection NEGATIVE NEGATI VE Urine amphetamines detection by screening method N EGATIVE NEGATIVE Urine methamphetamine detection by screening method NEGATIVE NEGATIVE Urine cannabinoids detection by screening method N EGATIVE NEGATIVE Urine opiates detection by screening method NEGATI VE NEGATIVE Urine barbiturates detection NEGATIVE N EGATIVE Screening urine tricyclic antidepressants detection NEGATIVE NEGATIVE Urine methadone detection by screening method NEGA TIVE NEGATIVE Urine oxycodone detection NEGATIVE NEGA TIVE Urine propoxyphene detection NEGATIVE N EGATIVE Bacterial urine culture - 10/31/18 13:50 Bacterial urine culture NG NRG Methicillin resistant Staphylococcus aur eus (MRSA) screening culture - 10/31/18 15:10 Methicillin resistant Staphylococcus aureus (MRSA) scr eening culture NEG NRG Capillary blood glucose measurement by g lucometer (mass/volume) - 10/31/18 15:14 Capillary blood glucose measurement by glucometer (mas s/volume) 132 mg/dL 70-110 Arterial blood gas measurement - 9 15:29 Blood pCO2 49 mm[Hg] 35-45 Blood pO2 85 mm[Hg] 79-93 Arterial blood bicarbonate measurement (moles/volume) 26 mmol/L 23-27 Arterial blood base excess by calculation 0.3 mmol /L -2.5-2.5 Arterial blood oxygen saturation measurement 97 % 94-100 * Inhaled oxygen flow rate 4L NRG Arterial blood pH measurement with patient temperature correction 7.34 7.37-7.43 Arterial blood carbon dioxide, total measurement (mole s/volume) 27.1 mmol/L 21.0-31.0 Body site R RAD NRG Assessment of wrist artery patency prior to arterial p uncture YES-POS NRG Setting of ventilation mode NO NR G Measurement of body temperature 97.8 NRG Arterial blood gas measurement - 9 22:13 Blood pCO2 46 mm[Hg] 35-45 Blood pO2 70 mm[Hg] 79-93 Arterial blood bicarbonate measurement (moles/volume) 26 mmol/L 23-27 Arterial blood base excess by calculation 1.3 mmol /L -2.5-2.5 Arterial blood oxygen saturation measurement 92 % 94-100 * Inhaled oxygen flow rate 21% NRG Arterial blood pH measurement with patient temperature correction 7.37 7.37-7.43 Arterial blood carbon dioxide, total measurement (mole s/volume) 27.1 mmol/L 21.0-31.0 Body site RIGHT RADIAL NRG Assessment of wrist artery patency prior to arterial p uncture YES-POS NRG Setting of ventilation mode NO NR G Measurement of body temperature 100.7 NRG Arterial blood gas measurement - 9 02:45 Blood pCO2 41 mm[Hg] 35-45 Blood pO2 104 mm[Hg] 79-93 Arterial blood bicarbonate measurement (moles/volume) 26 mmol/L 23-27 Arterial blood base excess by calculation 1.4 mmol /L -2.5-2.5 Arterial blood oxygen saturation measurement 99 % 94-100 * Inhaled oxygen flow rate 21% NRG Arterial blood pH measurement with patient temperature correction 7.41 7.37-7.43 Arterial blood carbon dioxide, total measurement (mole s/volume) 27.1 mmol/L 21.0-31.0 Body site LEFT RADIAL NRG Assessment of wrist artery patency prior to arterial p uncture YES-POS NRG Setting of ventilation mode NO NR G Measurement of body temperature 97.4 NRG Complete blood count (CBC) with automate d white blood cell (WBC) differential - 11/01/18 02:45 Blood leukocytes automated count (number/volume) 8.9 10*3/uL 4.3-11.0 Blood erythrocytes automated count (number/volume) 3.39 10*6/uL 4.35-5.85 Venous blood hemoglobin measurement (mass/volume) 10.4 g/dL 13.3-17.7 Blood hematocrit (volume fraction) 34 % 40-54 Automated erythrocyte mean corpuscular volume 99 [ foz_us] 80-99 Automated erythrocyte mean corpuscular h emoglobin (mass per erythrocyte) 31 pg 25-34 Automated erythrocyte mean corpuscular h emoglobin concentration measurement (mass/volume) 31 g/dL 32-36 Automated erythrocyte distribution width ratio 14. 1 % 10.0- 14.5 Automated blood platelet count (count/volume) 169 10*3/uL 130-400 Automated blood platelet mean volume measurement 10.2 [foz_us] 7.4-10.4 Automated blood neutrophils/100 leukocytes 78 % 42-75 Automated blood lymphocytes/100 leukocytes 11 % 12-44 Blood monocytes/100 leukocytes 10 % 0-12 Automated blood eosinophils/100 leukocytes 2 % 0-10 Automated blood basophils/100 leukocytes 0 % 0-10 Blood neutrophils automated count (number/volume) 6.9 10*3 1.8-7.8 Blood lymphocytes automated count (number/volume) 0.9 10*3 1.0-4.0 Blood monocytes automated count (number/volume) 0. 9 10*3 0.0-1.0 Automated eosinophil count 0.1 10*3/uL 0 .0-0.3 Automated blood basophil count (count/volume) 0.0 10*3/uL 0.0-0.1 Comprehensive metabolic panel - 11/01/18 02:45 Serum or plasma sodium measurement (moles/volume) 141 mmol/L 135-145 Serum or plasma potassium measurement (moles/volume) 4.7 mmol/L 3.6-5.0 Serum or plasma chloride measurement (moles/volume) 108 mmol/L 98-107 Carbon dioxide 23 mmol/L 21-32 Serum or plasma anion gap determination (moles/volume) 10 mmol/L 5-14 Serum or plasma urea nitrogen measurement (mass/volume ) 18 mg/dL 7-18 Serum or plasma creatinine measurement (mass/volume) 0.84 mg/dL 0.60-1.30 Serum or plasma urea nitrogen/creatinine mass ratio 21 NRG Serum or plasma creatinine measurement w ith calculation of estimated glomerular filtration rate > NRG Serum or plasma glucose measurement (mass/volume) 149 mg/dL 70-105 Serum or plasma calcium measurement (mass/volume) 8.6 mg/dL 8.5-10.1 Serum or plasma total bilirubin measurement (mass/volu me) 0.4 mg/dL 0.1-1.0 Serum or plasma alkaline phosphatase eugenia surement (enzymatic activity/volume) 79 U/L 40-136 Serum or plasma aspartate aminotransfera se measurement (enzymatic activity/volume) 9 U/L 5-34 Serum or plasma alanine aminotransferase measurement (enzymatic activity/volume) 13 U/L 0-55 Serum or plasma protein measurement (mass/volume) 6.4 g/dL 6.4-8.2 Serum or plasma albumin measurement (mass/volume) 3.5 g/dL 3.2-4.5 CALCIUM CORRECTED 9.0 mg/dL 8.5-10.1 Serum or plasma phosphate measurement (m ass/volume) - 11/01/18 02:45 Serum or plasma phosphate measurement (mass/volume) 3.2 mg/dL 2.3-4.7 Magnesium - 11/01/18 02:45 Magnesium 2.2 mg/dL 1.6-2.4 THYROID STIMULATING HORMONE - 11/01/18 0 2:45 THYROID STIMULATING HORMONE 0.32 u[iU]/mL 0.35-4.94 Bacterial throat culture - 11/01/18 06:3 0 Bacterial throat culture NBS NRG Streptococcus pneumoniae antigen detecti on - 11/01/18 07:30 Streptococcus pneumoniae antigen detection Negativ e NRG Complete blood count (CBC) with automate d white blood cell (WBC) differential - 11/02/18 03:15 Blood leukocytes automated count (number/volume) 8.0 10*3/uL 4.3-11.0 Blood erythrocytes automated count (number/volume) 3.35 10*6/uL 4.35-5.85 Venous blood hemoglobin measurement (mass/volume) 10.2 g/dL 13.3-17.7 Blood hematocrit (volume fraction) 32 % 40-54 Automated erythrocyte mean corpuscular volume 96 [ foz_us] 80-99 Automated erythrocyte mean corpuscular h emoglobin (mass per erythrocyte) 30 pg 25-34 Automated erythrocyte mean corpuscular h emoglobin concentration measurement (mass/volume) 32 g/dL 32-36 Automated erythrocyte distribution width ratio 14. 1 % 10.0- 14.5 Automated blood platelet count (count/volume) 198 10*3/uL 130-400 Automated blood platelet mean volume measurement 9.6 [foz_us] 7.4-10.4 Automated blood neutrophils/100 leukocytes 77 % 42-75 Automated blood lymphocytes/100 leukocytes 9 % 12-44 Blood monocytes/100 leukocytes 9 % 0-12 Automated blood eosinophils/100 leukocytes 5 % 0-10 Automated blood basophils/100 leukocytes 0 % 0-10 Blood neutrophils automated count (number/volume) 6.1 10*3 1.8-7.8 Blood lymphocytes automated count (number/volume) 0.7 10*3 1.0-4.0 Blood monocytes automated count (number/volume) 0. 7 10*3 0.0-1.0 Automated eosinophil count 0.4 10*3/uL 0 .0-0.3 Automated blood basophil count (count/volume) 0.0 10*3/uL 0.0-0.1 Comprehensive metabolic panel - 11/02/18 03:15 Serum or plasma sodium measurement (moles/volume) 139 mmol/L 135-145 Serum or plasma potassium measurement (moles/volume) 4.2 mmol/L 3.6-5.0 Serum or plasma chloride measurement (moles/volume) 107 mmol/L 98-107 Carbon dioxide 21 mmol/L 21-32 Serum or plasma anion gap determination (moles/volume) 11 mmol/L 5-14 Serum or plasma urea nitrogen measurement (mass/volume ) 15 mg/dL 7-18 Serum or plasma creatinine measurement (mass/volume) 0.74 mg/dL 0.60-1.30 Serum or plasma urea nitrogen/creatinine mass ratio 20 NRG Serum or plasma creatinine measurement w ith calculation of estimated glomerular filtration rate > NRG Serum or plasma glucose measurement (mass/volume) 102 mg/dL 70-105 Serum or plasma calcium measurement (mass/volume) 8.7 mg/dL 8.5-10.1 Serum or plasma total bilirubin measurement (mass/volu me) 0.5 mg/dL 0.1-1.0 Serum or plasma alkaline phosphatase eugenia surement (enzymatic activity/volume) 83 U/L 40-136 Serum or plasma aspartate aminotransfera se measurement (enzymatic activity/volume) 24 U/L 5-34 Serum or plasma alanine aminotransferase measurement (enzymatic activity/volume) 9 U/L 0-55 Serum or plasma protein measurement (mass/volume) 5.9 g/dL 6.4-8.2 Serum or plasma albumin measurement (mass/volume) 3.1 g/dL 3.2-4.5 CALCIUM CORRECTED 9.4 mg/dL 8.5-10.1 Serum or plasma phosphate measurement (m ass/volume) - 11/02/18 03:15 Serum or plasma phosphate measurement (mass/volume) 2.3 mg/dL 2.3-4.7 Magnesium - 11/02/18 03:15 Magnesium 1.7 mg/dL 1.6-2.4 Sarcoptes scabiei identification in skin by light microscopy - 11/02/18 10:50 SCABIES RESULT POSITIVE; ADULT AND/OR SCABI ES EGGS OBSERVED [facility] Sarcoptes scabiei identification in skin by light micr oscopy Reported to [facility] 11/02/18 11:35 by Abby Hooker [facility] Capillary blood glucose measurement by g lucometer (mass/volume) - 11/02/18 12:23 Capillary blood glucose measurement by glucometer (mas s/volume) 86 mg/dL 70-110 Capillary blood glucose measurement by g lucometer (mass/volume) - 11/03/18 00:15 Capillary blood glucose measurement by glucometer (mas s/volume) 81 mg/dL 70-110 Complete blood count (CBC) with automate d white blood cell (WBC) differential - 11/03/18 04:52 Blood leukocytes automated count (number/volume) 4.2 10*3/uL 4.3-11.0 Blood erythrocytes automated count (number/volume) 4.63 10*6/uL 4.35-5.85 Venous blood hemoglobin measurement (mass/volume) 14.2 g/dL 13.3-17.7 Blood hematocrit (volume fraction) 44 % 40-54 Automated erythrocyte mean corpuscular volume 94 [ foz_us] 80-99 Automated erythrocyte mean corpuscular h emoglobin (mass per erythrocyte) 31 pg 25-34 Automated erythrocyte mean corpuscular h emoglobin concentration measurement (mass/volume) 33 g/dL 32-36 Automated erythrocyte distribution width ratio 14. 7 % 10.0- 14.5 Automated blood platelet count (count/volume) 140 10*3/uL 130-400 Automated blood platelet mean volume measurement 9.6 [foz_us] 7.4-10.4 Automated blood neutrophils/100 leukocytes 77 % 42-75 Automated blood lymphocytes/100 leukocytes 8 % 12-44 Blood monocytes/100 leukocytes 11 % 0-12 Automated blood eosinophils/100 leukocytes 4 % 0-10 Automated blood basophils/100 leukocytes 0 % 0-10 Blood neutrophils automated count (number/volume) 3.2 10*3 1.8-7.8 Blood lymphocytes automated count (number/volume) 0.3 10*3 1.0-4.0 Blood monocytes automated count (number/volume) 0. 5 10*3 0.0-1.0 Automated eosinophil count 0.2 10*3/uL 0 .0-0.3 Automated blood basophil count (count/volume) 0.0 10*3/uL 0.0-0.1 Comprehensive metabolic panel - 11/03/18 04:52 Serum or plasma sodium measurement (moles/volume) 139 mmol/L 135-145 Serum or plasma potassium measurement (moles/volume) 3.9 mmol/L 3.6-5.0 Serum or plasma chloride measurement (moles/volume) 105 mmol/L 98-107 Carbon dioxide 17 mmol/L 21-32 Serum or plasma anion gap determination (moles/volume) 17 mmol/L 5-14 Serum or plasma urea nitrogen measurement (mass/volume ) 21 mg/dL 7-18 Serum or plasma creatinine measurement (mass/volume) 0.84 mg/dL 0.60-1.30 Serum or plasma urea nitrogen/creatinine mass ratio 25 NRG Serum or plasma creatinine measurement w ith calculation of estimated glomerular filtration rate > NRG Serum or plasma glucose measurement (mass/volume) 70 mg/dL 70-105 Serum or plasma calcium measurement (mass/volume) 8.5 mg/dL 8.5-10.1 Serum or plasma total bilirubin measurement (mass/volu me) 0.5 mg/dL 0.1-1.0 Serum or plasma alkaline phosphatase eugenia surement (enzymatic activity/volume) 72 U/L 40-136 Serum or plasma aspartate aminotransfera se measurement (enzymatic activity/volume) 19 U/L 5-34 Serum or plasma alanine aminotransferase measurement (enzymatic activity/volume) 12 U/L 0-55 Serum or plasma protein measurement (mass/volume) 5.9 g/dL 6.4-8.2 Serum or plasma albumin measurement (mass/volume) 3.2 g/dL 3.2-4.5 CALCIUM CORRECTED 9.1 mg/dL 8.5-10.1 Serum or plasma phosphate measurement (m ass/volume) - 11/03/18 04:52 Serum or plasma phosphate measurement (mass/volume) 3.3 mg/dL 2.3-4.7 Magnesium - 11/03/18 04:52 Magnesium 2.2 mg/dL 1.6-2.4 Complete blood count (CBC) with automate d white blood cell (WBC) differential - 11/03/18 22:20 Blood leukocytes automated count (number/volume) 7.0 10*3/uL 4.3-11.0 Blood erythrocytes automated count (number/volume) 3.48 10*6/uL 4.35-5.85 Venous blood hemoglobin measurement (mass/volume) 10.6 g/dL 13.3-17.7 Blood hematocrit (volume fraction) 33 % 40-54 Automated erythrocyte mean corpuscular volume 96 [ foz_us] 80-99 Automated erythrocyte mean corpuscular h emoglobin (mass per erythrocyte) 30 pg 25-34 Automated erythrocyte mean corpuscular h emoglobin concentration measurement (mass/volume) 32 g/dL 32-36 Automated erythrocyte distribution width ratio 14. 6 % 10.0- 14.5 Automated blood platelet count (count/volume) 245 10*3/uL 130-400 Automated blood platelet mean volume measurement 9.1 [foz_us] 7.4-10.4 Automated blood neutrophils/100 leukocytes 81 % 42-75 Automated blood lymphocytes/100 leukocytes 7 % 12-44 Blood monocytes/100 leukocytes 9 % 0-12 Automated blood eosinophils/100 leukocytes 3 % 0-10 Automated blood basophils/100 leukocytes 0 % 0-10 Blood neutrophils automated count (number/volume) 5.6 10*3 1.8-7.8 Blood lymphocytes automated count (number/volume) 0.5 10*3 1.0-4.0 Blood monocytes automated count (number/volume) 0. 6 10*3 0.0-1.0 Automated eosinophil count 0.2 10*3/uL 0 .0-0.3 Automated blood basophil count (count/volume) 0.0 10*3/uL 0.0-0.1 Blood lactic acid measurement (moles/vol ume) - 11/03/18 22:20 Blood lactic acid measurement (moles/volume) 0.73 mmol/L 0.50-2.00 Comprehensive metabolic panel - 11/03/18 22:20 Serum or plasma sodium measurement (moles/volume) 140 mmol/L 135-145 Serum or plasma potassium measurement (moles/volume) 4.1 mmol/L 3.6-5.0 Serum or plasma chloride measurement (moles/volume) 104 mmol/L 98-107 Carbon dioxide 24 mmol/L 21-32 Serum or plasma anion gap determination (moles/volume) 12 mmol/L 5-14 Serum or plasma urea nitrogen measurement (mass/volume ) 19 mg/dL 7-18 Serum or plasma creatinine measurement (mass/volume) 0.85 mg/dL 0.60-1.30 Serum or plasma urea nitrogen/creatinine mass ratio 22 NRG Serum or plasma creatinine measurement w ith calculation of estimated glomerular filtration rate > NRG Serum or plasma glucose measurement (mass/volume) 100 mg/dL 70-105 Serum or plasma calcium measurement (mass/volume) 8.8 mg/dL 8.5-10.1 Serum or plasma total bilirubin measurement (mass/volu me) 0.5 mg/dL 0.1-1.0 Serum or plasma alkaline phosphatase eugenia surement (enzymatic activity/volume) 89 U/L 40-136 Serum or plasma aspartate aminotransfera se measurement (enzymatic activity/volume) 24 U/L 5-34 Serum or plasma alanine aminotransferase measurement (enzymatic activity/volume) 15 U/L 0-55 Serum or plasma protein measurement (mass/volume) 6.6 g/dL 6.4-8.2 Serum or plasma albumin measurement (mass/volume) 3.4 g/dL 3.2-4.5 CALCIUM CORRECTED 9.3 mg/dL 8.5-10.1 Manual absolute plasma cell count - 10/07 22:20 Blood monocytes/100 leukocytes 5 % NRG Manual blood segmented neutrophils/100 leukocytes 84 % NRG Blood band neutrophils/100 leukocytes 1 % NRG Manual blood lymphocytes/100 leukocytes 5 % NRG Manual eosinophils/100 leukocytes in nose 5 % NRG Blood ovalocytes detection by light microscopy I GHT NRG PT panel in platelet poor plasma by coag ulation assay - 11/03/18 22:20 Prothrombin time (PT) in platelet poor plasma by coagu lation assay 15.3 s 12.2-14.7 INR in platelet poor plasma or blood by coagulation as say 1.2 0.8-1.4 Activated partial thromboplastin time (a PTT) in platelet poor plasma bycoagulation assay - 11/03/18 22:20 Activated partial thromboplastin time (a PTT) in platelet poor plasma bycoagulation assay 36 s 24-35 Fibrin D-dimer FEU measurement in platel et poor plasma (mass/volume) - 11/03/18 22:20 Fibrin D-dimer FEU measurement in platelet poor plasma (mass/volume) 3.64 ug/mL 0.00-0.49 Bacterial blood culture - 11/03/18 22:20 Bacterial blood culture NG NRG Arterial blood gas measurement - 9 22:24 Blood pCO2 43 mm[Hg] 35-45 Blood pO2 130 mm[Hg] 79-93 Arterial blood bicarbonate measurement (moles/volume) 24 mmol/L 23-27 Arterial blood base excess by calculation -0.7 mmo l/L -2.5-2.5 Arterial blood oxygen saturation measurement 98 % 94-100 * Inhaled oxygen flow rate 15 NRG Arterial blood pH measurement with patient temperature correction 7.37 7.37-7.43 Arterial blood carbon dioxide, total measurement (mole s/volume) 25.1 mmol/L 21.0-31.0 Body site RIGHT RADIAL NRG Assessment of wrist artery patency prior to arterial p uncture POSITIVE NRG Setting of ventilation mode NO NR G Measurement of body temperature 99.8 NRG Bacterial blood culture - 11/03/18 22:47 Bacterial blood culture NG NRG Complete urinalysis with reflex to cultu re - 11/03/18 23:25 Urine color determination YELLOW NRG Urine clarity determination CLEAR NR G Urine pH measurement by test strip 5 5-9 Specific gravity of urine by test strip 1.025 1.016-1.022 Urine protein assay by test strip, semi-quantitative 1+ NEGATIVE Urine glucose detection by automated test strip NE GATIVE NEGATIVE Erythrocytes detection in urine sediment by light micr oscopy 1+ NEGATIVE Urine ketones detection by automated test strip 4+ NEGATIVE Urine nitrite detection by test strip NEGATIVE NEGATIVE Urine total bilirubin detection by test strip NEGA TIVE NEGATIVE Urine urobilinogen measurement by automated test strip (mass/volume) NORMAL NORMAL Urine leukocyte esterase detection by dipstick 1+ NEGATIVE Automated urine sediment erythrocyte cou nt by microscopy (number/high power field) [HPF] NRG Automated urine sediment leukocyte count by microscopy (number/high power field) [HPF] NRG Bacteria detection in urine sediment by light microsco py MODERATE NRG Squamous epithelial cells detection in u rine sediment by light microscopy 2-5 NRG Crystals detection in urine sediment by light microsco py NONE NRG Casts detection in urine sediment by light microscopy PRESENT NRG Mucus detection in urine sediment by light microscopy NEGATIVE NRG Complete urinalysis with reflex to culture CULTURE PENDING NRG Hyaline casts detection in urine sediment by light nell roscopy 0-2 NRG Bacterial urine culture - 11/03/18 23:25 Bacterial urine culture NG NRG Sarcoptes scabiei identification in skin by light microscopy - 11/29/18 15:55 SCABIES RESULT NEGATIVE; NO EVIDENCE OF SCABIES OB SERVED NRG Complete urinalysis with reflex to cultu re - 04/21/19 07:11 Urine color determination YELLOW NRG Urine clarity determination CLEAR NR G Urine pH measurement by test strip 7.0 5-9 Specific gravity of urine by test strip 1.015 1.016-1.022 Urine protein assay by test strip, semi-quantitative NEGATIVE NEGATIVE Urine glucose detection by automated test strip NE GATIVE NEGATIVE Erythrocytes detection in urine sediment by light micr oscopy NEGATIVE NEGATIVE Urine ketones detection by automated test strip NE GATIVE NEGATIVE Urine nitrite detection by test strip NEGATIVE NEGATIVE Urine total bilirubin detection by test strip NEGA TIVE NEGATIVE Urine urobilinogen measurement by automated test strip (mass/volume) 0.2 mg/dL < = 1.0 Urine leukocyte esterase detection by dipstick NEG ATIVE NEGATIVE Automated urine sediment erythrocyte cou nt by microscopy (number/high power field) NONE NRG Automated urine sediment leukocyte count by microscopy (number/high power field) NONE NRG Bacteria detection in urine sediment by light microsco py NEGATIVE NRG Squamous epithelial cells detection in u rine sediment by light microscopy NONE NRG Crystals detection in urine sediment by light microsco py NONE NRG Casts detection in urine sediment by light microscopy NONE NRG Mucus detection in urine sediment by light microscopy NEGATIVE NRG Complete urinalysis with reflex to culture NO NRG Complete blood count (CBC) with automate d white blood cell (WBC) differential - 04/21/19 07:18 Blood leukocytes automated count (number/volume) 6.0 10*3/uL 4.3-11.0 Blood erythrocytes automated count (number/volume) 3.58 10*6/uL 4.35-5.85 Venous blood hemoglobin measurement (mass/volume) 11.2 g/dL 13.3-17.7 Blood hematocrit (volume fraction) 35 % 40-54 Automated erythrocyte mean corpuscular volume 99 [ foz_us] 80-99 Automated erythrocyte mean corpuscular h emoglobin (mass per erythrocyte) 31 pg 25-34 Automated erythrocyte mean corpuscular h emoglobin concentration measurement (mass/volume) 32 g/dL 32-36 Automated erythrocyte distribution width ratio 13. 1 % 10.0- 14.5 Automated blood platelet count (count/volume) 191 10*3/uL 130-400 Automated blood platelet mean volume measurement 9.4 [foz_us] 7.4-10.4 Automated blood neutrophils/100 leukocytes 68 % 42-75 Automated blood lymphocytes/100 leukocytes 16 % 12-44 Blood monocytes/100 leukocytes 10 % 0-12 Automated blood eosinophils/100 leukocytes 6 % 0-10 Automated blood basophils/100 leukocytes 1 % 0-10 Blood neutrophils automated count (number/volume) 4.1 10*3 1.8-7.8 Blood lymphocytes automated count (number/volume) 0.9 10*3 1.0-4.0 Blood monocytes automated count (number/volume) 0. 6 10*3 0.0-1.0 Automated eosinophil count 0.4 10*3/uL 0 .0-0.3 Automated blood basophil count (count/volume) 0.0 10*3/uL 0.0-0.1 Comprehensive metabolic panel - 04/21/19 07:18 Serum or plasma sodium measurement (moles/volume) 143 mmol/L 135-145 Serum or plasma potassium measurement (moles/volume) 4.5 mmol/L 3.6-5.0 Serum or plasma chloride measurement (moles/volume) 107 mmol/L 98-107 Carbon dioxide 27 mmol/L 21-32 Serum or plasma anion gap determination (moles/volume) 9 mmol/L 5-14 Serum or plasma urea nitrogen measurement (mass/volume ) 23 mg/dL 7-18 Serum or plasma creatinine measurement (mass/volume) 1.21 mg/dL 0.60-1.30 Serum or plasma urea nitrogen/creatinine mass ratio 19 NRG Serum or plasma creatinine measurement w ith calculation of estimated glomerular filtration rate 58 NRG Serum or plasma glucose measurement (mass/volume) 99 mg/dL 70-105 Serum or plasma calcium measurement (mass/volume) 9.3 mg/dL 8.5-10.1 Serum or plasma total bilirubin measurement (mass/volu me) 0.5 mg/dL 0.1-1.0 Serum or plasma alkaline phosphatase eugenia surement (enzymatic activity/volume) 80 U/L 40-136 Serum or plasma aspartate aminotransfera se measurement (enzymatic activity/volume) 11 U/L 5-34 Serum or plasma alanine aminotransferase measurement (enzymatic activity/volume) 10 U/L 0-55 Serum or plasma protein measurement (mass/volume) 6.4 g/dL 6.4-8.2 Serum or plasma albumin measurement (mass/volume) 4.0 g/dL 3.2-4.5 CALCIUM CORRECTED 9.3 mg/dL 8.5-10.1 Complete blood count (CBC) with automate d white blood cell (WBC) differential - 07/19/19 09:39 Blood leukocytes automated count (number/volume) 6.1 10*3/uL 4.3-11.0 Blood erythrocytes automated count (number/volume) 3.34 10*6/uL 4.35-5.85 Venous blood hemoglobin measurement (mass/volume) 10.6 g/dL 13.3-17.7 Blood hematocrit (volume fraction) 33 % 40-54 Automated erythrocyte mean corpuscular volume 100 [foz_us] 80-99 Automated erythrocyte mean corpuscular h emoglobin (mass per erythrocyte) 32 pg 25-34 Automated erythrocyte mean corpuscular h emoglobin concentration measurement (mass/volume) 32 g/dL 32-36 Automated erythrocyte distribution width ratio 13. 2 % 10.0- 14.5 Automated blood platelet count (count/volume) 229 10*3/uL 130-400 Automated blood platelet mean volume measurement 9.7 [foz_us] 7.4-10.4 Automated blood neutrophils/100 leukocytes 78 % 42-75 Automated blood lymphocytes/100 leukocytes 11 % 12-44 Blood monocytes/100 leukocytes 8 % 0-12 Automated blood eosinophils/100 leukocytes 3 % 0-10 Automated blood basophils/100 leukocytes 0 % 0-10 Blood neutrophils automated count (number/volume) 4.7 10*3 1.8-7.8 Blood lymphocytes automated count (number/volume) 0.7 10*3 1.0-4.0 Blood monocytes automated count (number/volume) 0. 5 10*3 0.0-1.0 Automated eosinophil count 0.2 10*3/uL 0 .0-0.3 Automated blood basophil count (count/volume) 0.0 10*3/uL 0.0-0.1 Radiology Report from [id number] on 01/25 10:27:00 Reason For ExamPost op scanREPORTPROCEDU RE: CT head without contrast.TECHNIQUE: Multiple contiguous axial images were obtained through the brainwithout the use of intravenous contrast.INDICATION: Subdural hemorrhage followupSince the 01/23/2018 study there has been a right frontoparietal craniotomy withplacement of a drainage catheter in the subdural space. There is a decrease inthe subdural fluid. There is some air anteriorly. No acute hemorrhage hasdeveloped. There is no acute parenchymal hemorrhage, edema or mass. There isless than 5 mm of shift of midline structures.IMPRESSION: Satisfactory postoperative head.Dictated on workstation:[id number] Line FINAL DICTATED BY: CHERI ZAMARRIPA MDDICTATED DT/TM: 01/25/2018 6:41 AMSIGNED BY: CHERI ZAMARRIPA MDSIGNED (ELECTRONIC SIGNATURE): 01/25/2018 6:59 AMTECHNOLOGIST: MADAN CERDA LRT Radiology Report from [id number] on 01/27 08:30:00 Reason For ExamPatient pulled out subdur al drainREPORTPROCEDURE: CT head without contrast.TECHNIQUE: Multiple contiguous axial images were obtained through the brainwithout the use of intravenous contrast.INDICATION: Subdural hematoma.Comparison made with prior examination from 01/25/18.FINDINGS: There is prominence of ventricles and sulci. Right subdural drainremains in place. There is persistent low density extra-axial fluid bilaterally.There is bilateral pneumocephalus. There is no hydrocephalus. There is nomidline shift. There is no new hemorrhage. Calvarium is otherwise intact. Thereis some subcutaneous edema again seen about the right face. There is bilateralmaxillary sinus disease. Mastoid air cells are clear.IMPRESSION: Persistent bilateral low-density subdural fluid collections with aright subdural drain in place. May be some minimal residual acute blood productsin the right.Atrophy and some chronic microvascular ischemic disease.Bilateral maxillary sinus disease.Dictated on workstation:[id number] Line PRELIMINARY DICTATED BY: FRANCISCO LUNDY II MDDICTATED DT/TM: 01/27/2018 6:46 Radiology Report from [id number] on 01/27 13:29:00 Reason For ExamUPWARD GAZEREPORTPROCEDUR E: CT head without contrast.TECHNIQUE: Multiple contiguous axial images were obtained through the brainwithout the use of intravenous contrast.INDICATION: Upward gaze.COMPARISON: 01/27/2018 at 4:36 a.m.FINDINGS:Again seen is minimal residual subdural hemorrhage along the right convexity.Subdural drain is in place and unchanged in position. The degree of bifrontalparietal and left posterior parietal pneumocephalus is unchanged. There is noventriculomegaly. There is no overt cerebral edema or midline shift. There is noobvious dense vessel sign or focus of acute ischemia. No new hemorrhage ispresent. The craniotomy bone flap is intact. Paranasal sinuses and mastoid aircells are stable.IMPRESSION:1. Stable trace residual subdural hemorrhage with subdural drain in place.2. Unchanged bilateral pneumocephalus without evidence of tension or shift.3. No acute focus of ischemia or new hemorrhage identified.Dictated on workstation:[id number] Line PRELIMINARY DICTATED BY: MAYA BENITEZ MDDICTATED DT/TM: 01/27/2018 1:21 Radiology Report from [id number] on 01/28 08:56:00 Reason For ExamDHT placementREPORTExamin ation: AP supine abdomen.Indication: Dobbhoff tube placement.Comparison: None.Findings:Technique is tailored for evaluation of feeding tube. Weighted tip of feedingtube projects over the distal stomach in the region of the pylorus. Gas isdemonstrated throughout the colon. Abdomen is otherwise unremarkable.Impression:Weighted tip of feeding tube is in the expected location of the distalstomach/pylorus.Dictated on workstation:[id number] Line PRELIMINARY DICTATED BY: TREVA KHAN DODICTATED DT/TM: 01/28/2018 8:50 Radiology Report from [id number] on 02/01 09:44:00 Reason For ExamEvaluate for ileus/consti pationREPORTINDICATION: Constipation. Ileus.Supine views of the abdomen shows a Dobbhoff tube present with tip at the levelof the duodenal bulb. No significant constipation is demonstrated. There areair-filled loops of nondilated large and small bowel which may be related tomild ileus. No obstruction is evident. There is no bowel wall edema. There is nomass evident. There is no acute bony abnormality.IMPRESSION: Mild ileus.Dictated on workstation:[id number] Line FINAL DICTATED BY: CHERI ZAMARRIPA MDDICTATED DT/TM: 02/01/2018 7:39 AMSIGNED BY: CHERI ZAMARRIPA MDSIGNED (ELECTRONIC SIGNATURE): 02/01/2018 8:27 AMTECHNOLOGIST: JENNY ABREU LRT Radiology Report from [id number] on 02/02 16:30:00 Reason For ExamCoughREPORTIndication: Co ughUpright portable chest shows normal heart size and vascularity. The lungs areclear. There is no effusion or pneumothorax. Dobbhoff tube is present.Impression: Normal chest.Dictated on workstation:[id number] Line FINAL DICTATED BY: CHERI ZAMARRIPA MDDICTATED DT/TM: 02/02/2018 4:18 PMSIGNED BY: CHERI ZAMARRIPA MDSIGNED (ELECTRONIC SIGNATURE): 02/02/2018 4:27 PMTECHNOLOGIST: DOUGLAS CHASE Radiology Report from [id number] on 02/06 11:33:00 Reason For Examabd tube post pyloricREPO RTINDICATION: Feeding tube placement.Comparison: None available.Findings and impression:1. Dobbhoff has tip either in the distal stomach or bulb of the duodenum.2. Nonobstructive bowel gas pattern.Dictated on workstation:[id number] Line PRELIMINARY DICTATED BY: OLIMPIA BLAIR MDDICTATED DT/TM: 02/06/2018 11:31 Radiology Report from [id number] on 02/06 13:45:00 Reason For Examtube plcmtREPORTPATIENT H ISTORY: Tube placement.TECHNIQUE: Single frontal view of the abdomen.COMPARISON: Radiographs from the same day.FINDINGS:The tip of the Dobbhoff tube projects over the distal stomach/first portion ofthe duodenum. No distended loops of small bowel are seen in the upper abdomen.No large collection of free air seen.IMPRESSION:The tip of the Dobbhoff tube projects over the distal stomach/first portion ofthe duodenum.Dictated on workstation:[id number] Line PRELIMINARY DICTATED BY: GRISELDA LAZO MDDICTATED DT/TM: 02/06/2018 1:42 Radiology Report from [id number] on 02/07 19:30:00 Reason For ExamDysphagia (Pharyngeal or Esophageal)REPORTINDICATION:Dysphagia.TECHNIQUE:Video fluoroscopy records the swallowing of varying consistencies in conjunctionwith Speech Pathology.FINDINGS:Thin barium was ingested with a weak and discoordinated swallowing motion withpersistent laryngeal penetration but no mell aspiration. The nectar, cookie,and pudding consistencies were swallowed without aspiration or airwaypenetration but did result in moderate residuals.IMPRESSION:1. Laryngeal penetration with thin barium. Residuals with the remainingconsistencies. No mell aspiration.2. Please refer to the Speech Pathology report for any additional findings andrecommendations.Tech Comments: Fluoroscopy time (in minutes): 3.37Dictated on workstation:[id number] Line FINAL DICTATED BY: RAFFAELE GREEN MDDICTATED DT/TM: 02/07/2018 4:12 PMSIGNED BY: RAFFAELE GREEN MDSIGNED (ELECTRONIC SIGNATURE): 02/07/2018 5:28 PMTECHNOLOGIST: DOUGLAS CHASE Radiology Report from [id number] on 02/10 07:00:00 Reason For Examcheck placementREPORTINDI CATION: Dobbhoff placement.COMPARISON: 02/06/2018.FINDINGS: Single view of the abdomen demonstrates Dobbhoff feeding catheter inthe antrum of the stomach. The tip is directed towards the outlet.IMPRESSION: Dobbhoff as described.Dictated on workstation:[id number] Line PRELIMINARY DICTATED BY: MAYA BENITEZ MDDICTATED DT/TM: 02/10/2018 6:19 Radiology Report from [id number] on 12/2017 02:11:00 Reason For ExamCoughREPORTINDICATION: Co ugh.TECHNIQUE: Single view chest 10:33 a.m.CORRELATION STUDY: 02/02/2018.FINDINGS:Enteral feeding tube is present. Heart size and mediastinum is stable. Thelungs are clear with no consolidating infiltrate. There is no significanteffusion or pneumothorax.IMPRESSION:1. Generally stable chest demonstrates no acute abnormality.Dictated on workstation:[id number] Line FINAL DICTATED BY: LANDON MCMULLEN DODICTMARAH DT/TM: 02/12/2018 10:53 AMSIGNED BY: LANDON MCMULLEN DOSIGNED (ELECTRONIC SIGNATURE): 02/12/2018 2:37 PMTECHNOLOGIST: MAYRA SHAFFER LRT Radiology Report from [id number] on 02/13 16:48:00 Reason For ExamCoughREPORTINDICATION:Cou gh.TIME OF EXAMINATION:12:11 PM.COMPARISON:11/24/2017.FINDINGS:The cardiac silhouette size is normal. The pulmonary vascularity and dhruv arenegative. There is no pleural effusion or airspace disease. There is mildprominence of the azygos vein/node region.IMPRESSION:Mildly prominent azygos vein/node region. Followup with PA and lateral chestx-ray. Otherwise, negative study.Dictated on workstation:[id number] Line FINAL DICTATED BY: JOSE PACK MDDICTATED DT/TM: 02/13/2018 4:06 PMSIGNED BY: JOSE PACK MDSIGNED (ELECTRONIC SIGNATURE): 02/13/2018 4:35 PMTECHNOLOGIST: JENNY ABREU LRT Radiology Report from [id number] on 02/16 10:06:00 Reason For ExamPulled and replaced PEG t ubeREPORTINDICATION: PEG tube replacementKUB 5:40 AM3 ml of Omnipaque was injected through the PEG tube. The contrast appears to beopacified in the gastric lumen. There is no evidence of leak.IMPRESSION: PEG tube appears to be within the gastric lumen.Dictated on workstation:[id number] Line FINAL DICTATED BY: KARLIE RIVERA MDDICTATED DT/TM: 02/16/2018 5:51 AMSIGNED BY: KARLIE RIVERA MDSIGNED (ELECTRONIC SIGNATURE): 02/16/2018 8:05 AMTECHNOLOGIST: MIAN LAWRENCE PHAM, TRUNG Q ARRT Radiology Report from [id number] on 02/16 11:22:00 Reason For Examverify placement of PEG t ubeREPORTINDICATION:PEG tube placement verification.EXAMINATION:KUB at 10:19 AM.FINDINGS:There is contrast in the stomach and small bowel. There is no evidence for aleak.IMPRESSION:The gastrostomy tube appears to be within the stomach.Dictated on workstation:[id number] Line PRELIMINARY DICTATED BY: KARLIE RIVERA MDDICTATED DT/TM: 02/16/2018 11:01 Radiology Report from [id number] on 03/02 12:41:00 Reason For ExamDifficulty swallowing (dy sphagia)REPORTINDICATION: Dysphagia.PROCEDURE: Video fluoroscopy was performed in the routine fashion, with SpeechPathology, in the upright and lateral position.DESCRIPTION OF PROCEDURE:The patient was given thin barium and nectar material as well as barium puddingand a barium coated cookie. The patient was also give a 12 mm barium tablet.There is good swallowing motion with no evidence of laryngeal penetration ortracheal aspiration.IMPRESSION:Unremarkable modified barium swallow.Tech Comments: Fluoroscopy time (in minutes): 3.02Dictated on workstation:[id number] Line PRELIMINARY DICTATED BY: DELIO FELICIANO MDDICTATED DT/TM: 03/02/2018 12:36 Radiology Report from [id number] on 03/03 15:10:00 Reason For Exam6 week post injuryREPORTP ROCEDURE:CT head without contrast.TECHNIQUE:Multiple contiguous axial images were obtained through the brain without the useof intravenous contrast.INDICATION:History of fall with intracranial hemorrhage.COMPARISON:01/27/2018.FINDINGS:The right-sided subdural drain has been removed. There is near completeresolution of the right hemispheric extra-axial pneumocephalus. Post surgicalchanges to the right temporoparietal calvarium are stable with no displacementof the craniotomy flap. A few areas of dural calcification are chronic. Theright hemispheric subdural c ollection is mixed in density with predominantly lowdensity CSF as well as some likely resorbing subacute blood product. There areno findings felt suggestive of the CT evidence for re-hemorrhage or adversedevelopment. The midline structures are nondisplaced. Atrophy andperiventricular white matter small vessel sequelae are chronic. No findingssuggestive of an infarct.IMPRESSION:Reduction in mixed density subdural collections. Near resolution of postinterventional pneumocephalus. No shift, herniation, or infarct followingcatheter removal. No adverse development.Dictated on workstation:[id number] Line PRELIMINARY DICTATED BY: RAFFAELE GREEN MDDICTATED DT/TM: 03/03/2018 11:25 Encounters ACCT No. Visit Date/Time Discharge Status Pt. Type Provider Facility Loc./Unit Complaint [id number] 01/23/2018 15:39:00 018 15:53:00 DIS Inpatient Liz Aaron [facility] [place] [facility] F6SE subdural Hemotoma [id number] 03/04/2018 05:18:14 Document Registration [id number] 02/21/2018 05:18:55 Document Registration [id number] 02/17/2018 05:18:45 Document Registration [id number] 02/16/2018 05:19:03 Document Registration [id number] 02/15/2018 05:20:48 Document Registration [id number] 02/10/2018 05:18:34 Document Registration [id number] 02/09/2018 05:22:25 Document Registration [id number] 02/07/2018 05:19:55 Document Registration [id number] 02/06/2018 05:16:33 Document Registration [id number] 02/05/2018 05:16:56 Document Registration [id number] 02/03/2018 05:18:25 Document Registration [id number] 02/01/2018 05:20:52 Document Registration [id number] 01/31/2018 05:19:44 Document Registration [id number] 01/30/2018 05:17:15 Document Registration [id number] 01/29/2018 05:16:39 Document Registration [id number] 01/27/2018 05:16:28 Document Registration [id number] 01/25/2018 05:17:21 Document Registration [id number] 01/24/2018 05:21:20 Document Registration [id number] 12/01/2018 10:46:03 12/01/2018 23:59:5 9 CLS Outpatient [id number] 07/20/2018 14:57:15 9 15:05:33 DIS Outpatient Kris Díaz [facility] [id number] 04/21/2019 06:04:00 09:15:00 DIS Emergency HARDIK [place], [place] [facility] ER FALL,LAC [id number] 03/30/2019 14:46:00 23:59:59 CLS Outpatient PAULINOFABIÁN DUBON DO [facility] RAD LOW BACK PAIN RIB PAIN [id number] 01/16/2019 11:23:00 23:59:59 CLS Outpatient PRINCESSFABIÁN PRUITT DO [facility] RAD R RING FINGER S WOLLEN AND BRUISED [id number] 11/29/2018 15:03:00 23:59:59 CLS Outpatient FABIÁN KENYON DO [facility] LAB SCABIES SCRAPIN G [id number] 11/03/2018 22:13:00 01:51:00 DIS Emergency KARLIE EISENBERG MD [facility] ER SOA [id number] 10/31/2018 14:22:00 13:40:00 DIS Inpatient PRINCESSFABIÁN PRUITT DO [facility] ICU PNA;HYPOXIA;HYP ERCARBIA [id number] 10/30/2018 12:19:00 23:59:59 CLS Outpatient FABIÁN KENYON DO [facility] LAB RULE OUT PNEUMO JAZZY [id number] 08/28/2018 14:39:00 23:59:59 CLS Outpatient PRINCESSFABIÁN PRUITT DO [facility] RAD FALL AND WEAKNE SS,UTI [id number] 07/19/2019 09:55:00 Document Registration [id number] 07/05/2018 10:25:00 07/05/2018 11: 25:00 DIS KRIS [facility] LAB [id number] 07/03/2018 11:05:00 07/03/2018 12: 05:00 DIS KR[facility] [id number] 06/26/2018 11:24:00 06/26/2018 12: 24:00 DIS undefined [facility] [id number] 06/06/2018 11:18:00 06/06/2018 12: 18:00 DIS undefined [facility] [id number] 06/05/2018 11:02:00 06/05/2018 12: 02:00 DIS undefined [facility] [id number] 05/25/2018 11:06:00 05/25/2018 12: 06:00 DIS undefined [facility] [id number] 02/09/2018 11:18:09 02/09/2018 23:5 9:59 CLS Outpatient Jameson Valerio [id number] 06/17/2017 15:00:00 06/17/2017 23:59: 59 CLS Outpatient Adarsh Hinojosa [facility] [id number] 01/18/2018 15:40:00 Document Registration [id number] 11/23/2016 07:50:00 Document Registration
[2019-07-19 10:14] LABS: ALBUMIN 3.8 GM/DL (3.2-4.5)
[2019-07-19 10:15] LABS: CHLORIDE 109 MMOL/L (98-107); SODIUM 141 MMOL/L (135-145)
--- NOTE | 2019-07-19 10:15 | Diagnostic Imaging Report ---
PROCEDURE: CT head without contrast. TECHNIQUE: Multiple contiguous axial images were obtained through the brain without the use of intravenous contrast. Auto Exposure Controls were utilized during the CT exam to meet ALARA standards for radiation dose reduction. INDICATION: Syncope. Correlation is made with prior head CT from 04/21/2019. Postsurgical changes of a right frontal craniotomy is noted. Ventricular size and sulcal pattern appear to be stable. There is no sulcal effacement or midline shift. No acute intra-axial or extra-axial hemorrhage is detected. Cisterns are patent. Visualized paranasal sinuses demonstrate small mucous retention cysts or polyps in bilateral maxillary sinuses. IMPRESSION: 1. Stable noncontrast head CT. No acute intracranial process detected. 2. Bilateral maxillary sinus mucous retention cysts or polyps. Dictated by: Dictated on workstation # [id number]
[2019-07-19 10:16] LABS: CALCIUM 8.7 MG/DL (8.5-10.1)
[2019-07-19 10:17] LABS: GLUCOSE 136 MG/DL (70-105); TOTAL PROTEIN 6.1 GM/DL (6.4-8.2)
[2019-07-19 10:18] LABS: CARBON DIOXIDE 19 MMOL/L (21-32)
[2019-07-19 10:19] LABS: BILIRUBIN,TOTAL 0.4 MG/DL (0.1-1.0)
[2019-07-19 10:21] LABS: ALKALINE PHOSPHATASE 69 U/L (40-136); CREATININE SERUM 1.47 MG/DL (0.60-1.30); GFR ESTIMATED 46
[2019-07-19 10:22] LABS: BUN/CREATININE RATIO 20
[2019-07-19 10:24] LABS: ALANINE AMINOTRANSFERASE 8 U/L (0-55)
[2019-07-19] MEDS ORDERED: NS IV 1000 ML 1,000 ML IV SCH (10:25)
--- NOTE | 2019-07-19 10:35 | Diagnostic Imaging Report ---
INDICATION: Syncopal episode and bradycardia. TIME OF EXAM: 10:13 a.m. COMPARISON: Correlation is made with prior chest from 11/03/2018. The heart size is normal. The pulmonary vascularity is unremarkable. The lungs are clear. No infiltrate, effusion or pneumothorax is detected. IMPRESSION: No acute cardiopulmonary process is detected. Dictated by: Dictated on workstation # [id number]
[2019-07-19 10:37] VITALS: BP_SYST 111; BP_SYST 116; BP_SYST 117; BP_DIAS 51; BP_DIAS 52; BP_DIAS 55
[2019-07-19 11:45] VITALS: BP 184/78
--- NOTE | 2019-07-19 11:45 | NUR ---
LULU GARLAND admitted to room 512-1, with an admitting diagnosis of SYNCOPE, on 07/19/19 from ER via BED, accompanied by STAFF.LULU GARLAND introduced to surroundings, call light, bed controls, phone, TV, temperature control, lights, meal times, smoking policy, visitor policy, side rail policy, bathrooms and showers. Patient Rights given to patient in the handbook. LULU GARLAND verbalizes understanding that [facility] is not responsible for the loss or damage to any personal effects or valuables that are kept in the patients posession during their hospitalization. The following Patient Care Plans were discussed with the PT: Discharge Planning, HIGH RISK FALLS,KNOWLEDGE DEFICIT, and PAIN. LULU GARLAND verbalizes understanding of Interdisciplinary Patient Education. Patient and family were informed about the Rapid Response Team and its purpose.
[2019-07-19 11:50] VITALS: BP 184/78
[2019-07-19] MEDS ORDERED: ONDANSETRON 4 MG/2 ML (SDV) Z0FRAN IVP PRN (12:00)
--- NOTE | 2019-07-19 12:10 | NUR ---
PT HAS NO DOCUMENTED PNEUMONIA VACCINE PER [facility].
--- NOTE | 2019-07-19 12:29 | Consultation-Cardiology ---
HPI-Cardiology Cardiology Consultation: Date of Consultation 07/19/19 Time Seen by a Provider: 12:40 Date of Admission 07-19-2019 Attending Physician Albina Silverman MD Admitting Physician Hiro Barrett DO Consulting Physician Toni Verdin MD HPI: Chief Complaint: Syncope Mr. Baldwin is a 78 year old male who has been admitted from the ED to [facility]. He is very [place] and a poor historian. Per review of ED records he lives in a LTC Facility; he was walking with staff this morning when per report he felt weak and was lowered to the floor. He was than placed in a w/c where staff reports he lost consciousness for approx 20 sec. They report he was hypotensive at the time, BP 80's systolic. He was able to ambulate to the cart by himself once EMS arrived for transport. He has had no further episodes. He is oriented to self only. He has a h/o dementia. He denies any c/o CP or SOB. He denies any n/v. Review of Systems-Cardiology Review of Systems Other comments ROS to the extent it could be obtained is as noted in the HPI All Other Systems Reviewed Negative Unless Noted: Yes PTT-Qcmlnz-Rrtnma Hx Patient Social History Alcohol Use: Denies Use Recreational Drug Use: No Smoking Status: Never a Smoker Type Used: Cigarettes Recent Foreign Travel: No Recent Infectious Disease Expo: No Hospitalization with Isolation: Denies Immunizations Up To Date Tetanus Booster (TDap): Unknown Past Medical History PMH As described under Assessment. Family Medical History Family Medical History: Unable to contribute d/t dementia Family History: Patient reports no known family medical history. Allergies and Home Medications Allergies Coded Allergies: quetiapine (Verified Allergy, Unknown, 10/31/18) Home Medications Acetaminophen 325 Mg Tablet, 650 MG PO Q4H PRN for PAIN-MILD OR TEMPATURE, (Reported) TAKES 2 (325MG) TABLETS Albuterol Sulfate 2.5 Mg/3 Ml Vial.neb, 2.5 MG NEB QID, (Reported) 10 DAY THERAPY START DATE 10-30-18 END DATE 11-09-18 Amlodipine Besylate 2.5 Mg Tablet, 2.5 MG PO DAILY, (Reported) HOLD FOR BP <100/60 AND PULSE <60 Ascorbic Acid 500 Mg Tablet, 500 MG PO BID, (Reported) Bisacodyl 10 Mg Supp.rect, 10 MG RC Q72H PRN for CONSTIPATION-4TH LINE, (Reported) Budesonide 0.5 Mg/2 Ml Ampul.neb, 0.5 MG NEB Q12H PRN for SHORTNESS OF BREATH, (Reported) Cefdinir 300 Mg Capsule, 300 MG PO BID 300 mg bid x 8 caps Prescribed by: FADUMO LAWS on 11/03/18 1221 Cyanocobalamin 1,000 Mcg/Ml Inj, 1,000 MCG IM Tu, (Reported) Escitalopram Oxalate 10 Mg Tablet, 10 MG PO DAILY, (Reported) Ferrous Sulfate 325 Mg Tablet, 325 MG PO BID, (Reported) Fluticasone Propionate 16 Gm Hartley.susp, 1 SPRAY NS BID, (Reported) Fluticasone/Salmeterol 12 Gm Hfa.aer.ad, 1 PUFF INH BID, (Reported) Folic Acid 1 Mg Tablet, 1 MG PO DAILY, (Reported) Isosorbide Dinitrate 5 Mg Tablet, 5 MG PO DAILY, (Reported) HOLD FOR BP <100/60 AND PULSE <60 Loratadine 10 Mg Tablet, 10 MG PO DAILY, (Reported) Mag Hydrox/Aluminum Hyd/Simeth 355 Ml Oral.susp, 30 ML PO Q6H PRN for INDIGESTION, (Reported) Magnesium Hydroxide 2,400 Mg/10 Ml Oral.susp, 30 ML PO DAILY PRN for CONSTIPATION-7TH LINE, (Reported) Magnesium Oxide 400 Mg Tablet, 400 MG PO DAILY, (Reported) Melatonin 3 Mg Tablet, 3 MG PO HS, (Reported) Mirtazapine 30 Mg Tablet, 30 MG PO HS, (Reported) Multivitamin with Minerals 1 Each Tablet, 1 TAB PO DAILY, (Reported) Omeprazole 20 Mg Capsule.dr, 20 MG PO DAILY, (Reported) Polyethylene Glycol 3350 17 Gm Powd.pack, 17 GM PO DAILY, (Reported) Pravastatin Sodium 40 Mg Tablet, 40 MG PO HS, (Reported) Risperidone 12.5 Mg/2 Ml Disp.syrin, 12.5 MG IM EVERY 14 DAYS, (Reported) Rivaroxaban 10 Mg Tablet, 10 MG PO DAILY, (Reported) Sennosides/Docusate Sodium 1 Each Tablet, 2 TAB PO BID, (Reported) Tamsulosin HCl 0.4 Mg Cap, 0.4 MG PO HS, (Reported) Thiamine HCl 100 Mg Tablet, 100 MG PO DAILY, (Reported) Trazodone HCl 100 Mg Tablet, 200 MG PO HS, (Reported) TAKES 2 (100MG) TABLETS Triamcinolone Acet 15 Gm Cr, TOP BID, (Reported) APPLY TO BACK RT LOWER QUAD Physical Exam-Cardiology Physical Exam Vital Signs/I&O 07/19/19 07/19/19 07/19/19 07/19/19 09:27 10:37 11:45 11:45 Temp 36.4 36.4 Pulse 49 48 49 52 54 Resp 15 14 B/P (MAP) 108/50 (69) 117/51 (73) 184/78 111/55 (73) 116/52 (73) Pulse Ox 96 97 97 O2 Delivery Room Air Room Air Room Air Capillary Refill : Less Than 3 Seconds Constitutional: well-developed, well-nourished, other (Oriented to self only; conversation inappropriate to questions asked) HEENT: PERRL, hard of hearing Neck: No carotid bruit; carotid pulses are 2 + bilaterally Respiratory: No accessory muscle use, No respiratory distress; chest expansion is symmetric, chest is bilaterally symmetric, lungs clear to auscultation Cardiovascular: regular rate-rhythm; No JVD; bradycardia, S1 and S2 Gastrointestinal: No tender; soft, round, audible bowel sounds Extremities: no lower extremity edema bilateral Neurologic/Psychiatric: other (moves all extremities) Skin: No rash on exposed areas, No ulcerations on exposed areas Data Review Labs Laboratory Tests 07/19/19 09:39: White Blood Count 6.1, Red Blood Count 3.34L, Hemoglobin 10.6L, Hematocrit 33L, Mean Corpuscular Volume 100H, Mean Corpuscular Hemoglobin 32, Mean Corpuscular Hemoglobin Concent 32, Red Cell Distribution Width 13.2, Platelet Count 229, Mean Platelet Volume 9.7, Neutrophils (%) (Auto) 78H, Lymphocytes (%) (Auto) 11L , Monocytes (%) (Auto) 8, Eosinophils (%) (Auto) 3, Basophils (%) (Auto) 0, Neutrophils # (Auto) 4.7, Lymphocytes # (Auto) 0.7L, Monocytes # (Auto) 0.5, Eosinophils # (Auto) 0.2, Basophils # (Auto) 0.0, Sodium Level 141, Potassium Level 5.0, Chloride Level 109H, Carbon Dioxide Level 19L, Anion Gap 13, Blood Urea Nitrogen 30H, Creatinine 1.47H, Estimat Glomerular Filtration Rate 46, BUN/Creatinine Ratio 20, Glucose Level 136H, Calcium Level 8.7, Corrected Calcium 8.9, Total Bilirubin 0.4, Aspartate Amino Transf (AST/SGOT) 17, Alanine Aminotransferase (ALT/SGPT) 8, Alkaline Phosphatase 69, Troponin I < 0.028, B- Type Natriuretic Peptide 36.0, Total Protein 6.1L, Albumin 3.8 Radiology NAME: LULU BALDWIN [facility] REC#: [id number] PT STATUS: REG ER : 1940 PHYSICIAN: TERESE GATES MD ADMIT DATE: 07/19/19/ER Draft Date of Exam:07/19/19 CHEST 1 VIEW, AP/PA ONLY INDICATION: Syncopal episode and bradycardia. TIME OF EXAM: 10:13 a.m. COMPARISON: Correlation is made with prior chest from 11/03/2018. The heart size is normal. The pulmonary vascularity is unremarkable. The lungs are clear. No infiltrate, effusion or pneumothorax is detected. IMPRESSION: No acute cardiopulmonary process is detected. Dictated on workstation # [id number] Dict: 07/19/19 1031 Trans: 07/19/19 1035 [id number] Interpreted by: SAI ANNE MD Electronically signed by: NAME: LULU BALDWIN [facility] REC#: [id number] PT STATUS: REG ER : 1940 PHYSICIAN: TERESE GATES MD ADMIT DATE: 07/19/19/ER Draft Date of Exam:07/19/19 CT HEAD WO PROCEDURE: CT head without contrast. TECHNIQUE: Multiple contiguous axial images were obtained through the brain without the use of intravenous contrast. Auto Exposure Controls were utilized during the CT exam to meet ALARA standards for radiation dose reduction. INDICATION: Syncope. Correlation is made with prior head CT from 04/21/2019. Postsurgical changes of a right frontal craniotomy is noted. Ventricular size and sulcal pattern appear to be stable. There is no sulcal effacement or midline shift. No acute intra-axial or extra-axial hemorrhage is detected. Cisterns are patent. Visualized paranasal sinuses demonstrate small mucous retention cysts or polyps in bilateral maxillary sinuses. IMPRESSION: 1. Stable noncontrast head CT. No acute intracranial process detected. 2. Bilateral maxillary sinus mucous retention cysts or polyps. 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 Dementia H/O frequent falls GERD H/O PEG tube (removed) H/O encephalopathy Documented h/o MS BPH HLD HTN Acute renal insufficiency - possibly d/t dehydration Discussion and Recomendations Syncopal episode of undetermined etiology - possibly d/t orthostatic hypotension (hypotension documented) vs bradyarrhythmia (chronic SB) - consider ILR placement 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
[2019-07-19] MEDS ORDERED: CARB15DR OS (14:26)
[2019-07-19] MEDS ORDERED: MIRT15TA6 PO (14:26)
[2019-07-19] MEDS ORDERED: LOPE2TAB32 PO (14:26)
[2019-07-19] MEDS ORDERED: TRZ50T PO (14:26)
--- NOTE | 2019-07-19 14:27 | NUR ---
ENTERED THE MED REC USING THE ACTIVE ORDERS FROM [facility]
--- OUTSIDE RECORDS SUMMARY | 2019-07-19 14:32 | XMS REPORT | Continuity of Care Document ---
Author Organization Unknown Address Unknown Phone Unavailable Allergies Active Description Code Type Severity Reaction Onset Reported/Identified Relationship to Patient Clinical Status Yes No Known Allergies NKMA N/A N/A 01/23/2018 Yes No Known Drug Allergies [id number] Drug Allergy Unknown N/A 10/31/2018 Yes quetiapine [id number] Drug Allerg y Unknown N/A 10/31/2018 Medications [...] 01/24/2018 01/24/2018 SubCutaneous 1 mL, SubCutaneous, Once, NM N: Other (See Comment) ceFAZolin(ceFAZolin) 20 mL [...] Jameson Valerio W19.XXXA UNSPECIFIED FALL, INITIAL ENCOUNTER [facility], Jameson 01/31/2018 Jameson Valerio F10 .10 [facility]COHOL [facility], [facility] Jameson Valerio S06.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 03/08/2018 Agusto,Linus [...] UNSPECIFIED FALL, INITIAL ENCOUNTER 11/01/2018 GELLENDER DO, FABIÁN Mackey Ot I51.7 CARDIOMEGALY 11/01/2018 GELLENDER DO, [...] 11/03/2018 GELLENDER DO, FABIÁN Mackey Ot Z79.01 SCHOOL CAFETERIA HEAD COOK (CURRENT) USE OF ANTICOAGULANT 11/03/2018 GELLENDER DO, [...] 11/03/2018 GELLENDER DO, FABIÁN Mackey Ot Z79.01 SCHOOL CAFETERIA HEAD COOK (CURRENT) USE OF ANTICOAGULANT 11/03/2018 GELLENDER DO, [...] DEPRESSIVE DISORDER, SINGLE EPISOD 11/03/2018 GELLENDER DO, FABÁIN Mackey Ot G93.41 METABOLIC ENCEPHALOPATHY 11/03/2018 GELLENDER [...] 11/03/2018 GELLENDER DO, FABIÁN Key Ot Z79.01 SCHOOL CAFETERIA HEAD COOK (CURRENT) USE OF ANTICOAGULANT 11/03/2018 GELLENDER DO, [...] 11/03/2018 GELLENDER DO, FABIÁN Mackey Ot Z79.01 SHELTER (CURRENT) USE OF ANTICOAGULANT 11/03/2018 GELLENDER DO, [...] EISENBERG MD Ot J98.01 ACUTE BRONCHOSPASM 11/07/2018 KARLIE EISENBERG MD, Ot K21.9 GASTRO-ESOPHAGEAL REFLUX DISEASE WITHOUT 11/07/2018 KARLIE EISENBERG MD Ot R06.02 SHORTNESS OF BREATH 11/07/2018 KARLIE EISENBERG MD, Ot R41.82 ALTERED MENTAL STATUS, UNSPECIFIED 11/07/2018 KARLIE EISENBERG MD, Ot Z86.711 PERSONAL HISTORY OF PULMONARY EMBOLISM 11/07/2018 KARLIE EISENBERG MD, Ot Z87.820 PERSONAL HISTORY OF TRAUMATIC BRAIN INJU 11/07/2018 KARLIE EISENBERG MD, Ot Z88.8 ALLERGY STATUS TO [facility] DRUG/MEDS/BIOL SUB 12/01[facility]2018 [facility] B86 SCABIES 12/05/2018 [facility], FABIÁN Mackey Ot B86 SCABIES 02/06/2019 [facility], FABIÁN Mackey Ot S62.624A DISP FX OF MIDDLE PHALANX OF RIGHT RING 02/06/2019 [facility] X58.XXXA EXPOSURE TO OTHER SPECIFIED FACTORS, INI 04/02/2019 [facility], FABIÁN Mackey Ot M47.816 SPONDYLOSIS W/O MYELOPATHY OR RADICULOPA 04/02/2019 [facility] Ot R07.81 PLEURODYNIA 04/21/2019 CHUY DYE MD [...] DYE MD, Ot Y92.[address] USP PLACE 04/21/2019 CHUY DYE MD, Ot Z79.01 SCHOOL CAFETERIA HEAD COOK (CURRENT) USE OF ANTICOAGULANT 04/21/2019 CHUY DYE MD Ot Z79.51 SCHOOL CAFETERIA HEAD COOK (CURRENT) USE OF INHALED STERO 04/21/2019 CHUY [...] FALL ON SAME LEVEL, UNSPECIFIED, INITIAL 04/27/2019 CHUY DYE MD, Ot Y92.[address] USP PLACE 04/27/2019 CHUY DYE MD, Ot Z79.01 SHELTER (CURRENT) USE OF ANTICOAGULANT 04/27/2019 CHUY DYE MD, Ot Z79.51 SCHOOL CAFETERIA HEAD COOK (CURRENT) USE OF INHALED STERO 04/27/2019 CHUY DYE MD, Ot Z86.711 PERSONAL HISTORY OF PULMONARY EMBOLISM 04/27/2019 CHUY DYE MD, Ot Z87.820 PERSONAL HISTORY OF TRAUMATIC BRAIN INJU 04/27/2019 CHUY DYE MD, Ot Z88.8 ALLERGY STATUS TO [facility] DRUG/MEDS/BIOL SUB 04/30/2019 FABIÁN KENYON DO Ot M47.816 SPONDYLOSIS W/O MYELOPATHY OR RADICULOPA 04/30/2019 FABIÁN KENYON DO Ot R07.81 PLEURODYNIA 05/02/2019 CHUY DYE MD, Ot E78.00 PURE HYPERCHOLESTEROLEMIA, UNSPECIFIED 05/02/2019 CHUY DYE MD, Ot F03.90 UNSPECIFIED DEMENTIA WITHOUT BEHAVIORAL 05/02/2019 CHUY DYE MD, Ot F32.9 MAJOR DEPRESSIVE DISORDER, SINGLE EPISOD 05/02/2019 CHUY DYE MD, Ot I10 ESSENTIAL (PRIMARY) HYPERTENSION 05/02/2019 CHUY DYE MD, Ot K21.9 GASTRO-ESOPHAGEAL REFLUX [...] DYE MD, Ot Y92.[address] PLACE 05/02/2019 CHUY DYE MD, Ot Z79.01 SHELTER (CURRENT) USE OF ANTICOAGULANT 05/02/2019 CHUY DYE MD, Ot Z79.51 SCHOOL CAFETERIA HEAD COOK (CURRENT) USE OF INHALED STERO 05/02/2019 CHUY DYE MD, Ot Z86.711 PERSONAL HISTORY OF PULMONARY EMBOLISM 05/02/2019 CHUY DYE MD, Ot Z87.820 PERSONAL HISTORY OF TRAUMATIC BRAIN INJU 05/02/2019 CHUY DYE MD, Ot Z88.8 ALLERGY STATUS TO OT DRUG/MEDS/BIOL SUB Procedures Code Description [place] [address] CRAN I FOR EVAC OF HEMATOMA SUPRATENTORIAL, EXTRADURAL OR SUBDURAL Jameson Val[facility]io [facility] 82V126A Re moval of Drainage Device from Brain, Percutaneous Approach 02/05/201836086 SHAAN NEGRO OF IMPLANT; Jameson Still 02/09/2018 60506 CRAN I FOR EVAC OF HEMATOMA SUPRATENTORIAL, EXTRADURAL OR SUBDURAL Jameson Valerio 02/10/2018 98005 INIT [facility] Jameson Valerio 02/23/201826716 SHAAN NEGRO OF IMPLANT; Jameson Still 03/10/2018 43018 Comp rehensive metabolic panel 07/20/2018 25781 CBC with platelets, auto 07/20/2018 04840 Comp uted tomography, head or brain; without contrast material 0 07/20/2018 32682 Radi ologic exam chest 2 views 07/20/2018 06983 Free T4 07/20/2018 31550 Thyr oid stimulating hormone (TSH) 07/20/2018 09131 12+ -lead ECG, interp/report only 07/20/2018 87097 Urin alysis, automated, without microscopy 07/20/2018 Results [...] - Hydroxy - 01/18/18 16:11 Urine Culture #[id number] - 01/18/18 16:11 CBC With Platelet and [...] 5.0-8.0 Protein Pos 1+ NA Negative Specific [place] 1.025 NA 1.003-1.030 UA Collection type Ferrer [...] 222 1000/uL 150 - 450 RBC-CBC 3.26 2600684/UL 4.00 - 5.20 RDW-CV 14.0 % 11.5 [...] 262 1000/uL 150 - 450 RBC-CBC 3.25 6626912/UL 4.00 - 5.20 RDW-CV 14.3 % 11.5 [...] 262 1000/uL 150 - 450 RBC-CBC 3.43 3662295/UL 4.50 - 5.90 RDW-CV 14.0 % 11.5 [...] 234 1000/uL 150 - 450 RBC-CBC 3.43 0695582/UL 4.50 - 5.90 RDW-CV 14.2 % 11.5 [...] POSITIVE; ADULT AND/OR SCABI ES EGGS OBSERVED [facility] Sarcoptes scabiei identification in skin by light micr oscopy Reported to [facility] 11/02/18 11:35 by Abby Hooker [facility] Capillary blood glucose measurement by g lucometer [...] 0.0 10*3/uL 0.0-0.1 Comprehensive metabolic panel - 07/19/19 09:39 Serum or plasma sodium measurement (moles/volume) 141 mmol/L 135-145 Serum or plasma potassium measurement (moles/volume) 5.0 mmol/L 3.6-5.0 Serum or plasma chloride measurement (moles/volume) 109 mmol/L 98-107 Carbon dioxide 19 mmol/L 21-32 Serum or plasma anion gap determination (moles/volume) 13 mmol/L 5-14 Serum or plasma urea nitrogen measurement (mass/volume ) 30 mg/dL 7-18 Serum or plasma creatinine measurement (mass/volume) 1.47 mg/dL 0.60-1.30 Serum or plasma urea nitrogen/creatinine mass ratio 20 NRG Serum or plasma creatinine measurement w ith calculation of estimated glomerular filtration rate 46 NRG Serum or plasma glucose measurement (mass/volume) 136 mg/dL 70-105 Serum or plasma calcium measurement (mass/volume) 8.7 mg/dL 8.5-10.1 Serum or plasma total bilirubin measurement (mass/volu me) 0.4 mg/dL 0.1-1.0 Serum or plasma alkaline phosphatase eugenia surement (enzymatic activity/volume) 69 U/L 40-136 Serum or plasma aspartate aminotransfera se measurement (enzymatic activity/volume) 17 U/L 5-34 Serum or plasma alanine aminotransferase measurement (enzymatic activity/volume) 8 U/L 0-55 Serum or plasma protein measurement (mass/volume) 6.1 g/dL 6.4-8.2 Serum or plasma albumin measurement (mass/volume) 3.8 g/dL 3.2-4.5 CALCIUM CORRECTED 8.9 mg/dL 8.5-10.1 Serum or plasma lithium measurement (mol es/volume) - 07/19/19 09:39 BNP PT 36.0 pg/mL <100.0 Serum or plasma troponin i.cardiac measu rement (mass/volume) - 07/19/19 09:39 Serum or plasma troponin i.cardiac measurement (mass/v olume) < ng/mL <0.028 Radiology Report from [id number] on 01/25 10:27:00 Reason For ExamPost op [...] of midline structures.IMPRESSION: Satisfactory postoperative head.Dictated on workstation:[id number] Line FINAL DICTATED BY: CHERI ZAMARRIPA MDDICTATED DT/TM: 01/25/2018 6:41 AMSIGNED BY: CHERI ZAMARRIPA MDSIGNED (ELECTRONIC SIGNATURE): 01/25/2018 6:59 AMTECHNOLOGIST: MADAN CERDA LRT Radiology Report from [id number] on 01/27 08:30:00 Reason For ExamPatient pulled [...] microvascular ischemic disease.Bilateral maxillary sinus disease.Dictated on workstation:[id number] Line PRELIMINARY DICTATED BY: FRANCISCO LUNDY II MDDICTATED DT/TM: 01/27/2018 6:46 Radiology Report from [id number] on 01/27 13:29:00 Reason For ExamUPWARD GAZEREPORTPROCEDUR [...] of ischemia or new hemorrhage identified.Dictated on workstation:[id number] Line PRELIMINARY DICTATED BY: MAYA BENITEZ MDDICTATED DT/TM: 01/27/2018 1:21 Radiology Report from [id number] on 01/28 08:56:00 Reason For ExamDHT placementREPORTExamin ation: AP supine abdomen.Indication: Dobbhoff tube placement.Comparison: None.Findings:Technique is tailored for evaluation of feeding tube. Weighted tip of feedingtube projects over the distal stomach in the region of the pylorus. Gas isdemonstrated throughout the colon. Abdomen is otherwise unremarkable.Impression:Weighted tip of feeding tube is in the expected location of the distalstomach/pylorus.Dictated on workstation:[id number] Line PRELIMINARY DICTATED BY: TREVA KHAN DODICTATED DT/TM: 01/28/2018 8:50 Radiology Report from [id number] on 02/01 09:44:00 Reason For ExamEvaluate for [...] no acute bony abnormality.IMPRESSION: Mild ileus.Dictated on workstation:[id number] Line FINAL DICTATED BY: CHERI ZAMARRIPA MDDICTATED DT/TM: 02/01/2018 7:39 AMSIGNED BY: CHERI ZAMARRIPA MDSIGNED (ELECTRONIC SIGNATURE): 02/01/2018 8:27 AMTECHNOLOGIST: JENNY ABREU LRT Radiology Report from [id number] on 02/02 16:30:00 Reason For ExamCoughREPORTIndication: Co ughUpright portable chest shows normal heart size and vascularity. The lungs areclear. There is no effusion or pneumothorax. Dobbhoff tube is present.Impression: Normal chest.Dictated on workstation:[id number] Line FINAL DICTATED BY: CHERI ZAMARRIAP MDDICTATED DT/TM: 02/02/2018 4:18 PMSIGNED BY: CHERI ZAMARRIPA MDSIGNED (ELECTRONIC SIGNATURE): 02/02/2018 4:27 PMTECHNOLOGIST: DOUGLAS CHASE Radiology Report from [id number] on 02/06 11:33:00 Reason For Examabd tube post pyloricREPO RTINDICATION: Feeding tube placement.Comparison: None available.Findings and impression:1. Dobbhoff has tip either in the distal stomach or bulb of the duodenum.2. Nonobstructive bowel gas pattern.Dictated on workstation:[id number] Line PRELIMINARY DICTATED BY: OLIMPIA BLAIR MDDICTATED DT/TM: 02/06/2018 11:31 Radiology Report from [id number] on 02/06 13:45:00 Reason For Examtube plcmtREPORTPATIENT [...] the distal stomach/first portion ofthe duodenum.Dictated on workstation:[id number] Line PRELIMINARY DICTATED BY: GRISELDA LAZO MDDICTATED DT/TM: 02/06/2018 1:42 Radiology Report from [id number] on 02/07 19:30:00 Reason For ExamDysphagia (Pharyngeal [...] Comments: Fluoroscopy time (in minutes): 3.37Dictated on workstation:[id number] Line FINAL DICTATED BY: RAFFAELE GREEN MDDICTATED DT/TM: 02/07/2018 4:12 PMSIGNED BY: RAFFAELE GREEN MDSIGNED (ELECTRONIC SIGNATURE): 02/07/2018 5:28 PMTECHNOLOGIST: DOUGLAS CHASE Radiology Report from [id number] on 02/10 07:00:00 Reason For Examcheck placementREPORTINDI CATION: Dobbhoff placement.COMPARISON: 02/06/2018.FINDINGS: Single view of the abdomen demonstrates Dobbhoff feeding catheter inthe antrum of the stomach. The tip is directed towards the outlet.IMPRESSION: Dobbhoff as described.Dictated on workstation:[id number] Line PRELIMINARY DICTATED BY: MAYA BENITEZ MDDICTATED DT/TM: 02/10/2018 6:19 Radiology Report from [id number] on 12/2017 02:11:00 Reason For ExamCoughREPORTINDICATION: Co ugh.TECHNIQUE: Single view chest 10:33 a.m.CORRELATION STUDY: 02/02/2018.FINDINGS:Enteral feeding tube is present. Heart size and mediastinum is stable. Thelungs are clear with no consolidating infiltrate. There is no significanteffusion or pneumothorax.IMPRESSION:1. Generally stable chest demonstrates no acute abnormality.Dictated on workstation:[id number] Line FINAL DICTATED BY: LANDON MCMULLEN DODICTATED DT/TM: 02/12/2018 10:53 AMSIGNED BY: LANDON MCMULLEN DOSIGNED (ELECTRONIC SIGNATURE): 02/12/2018 2:37 PMTECHNOLOGIST: MAYRA SHAFFER LRT Radiology Report from [id number] on 02/13 16:48:00 Reason For ExamCoughREPORTINDICATION:Cou gh.TIME OF EXAMINATION:12:11 PM.COMPARISON:11/24/2017.FINDINGS:The cardiac silhouette size is normal. The pulmonary vascularity and dhruv arenegative. There is no pleural effusion or airspace disease. There is mildprominence of the azygos vein/node region.IMPRESSION:Mildly prominent azygos vein/node region. Followup with PA and lateral chestx-ray. Otherwise, negative study.Dictated on workstation:[id number] Line FINAL DICTATED BY: JOSE PACK MDDICTATED DT/TM: 02/13/2018 4:06 PMSIGNED BY: JOSE PACK MDSIGNED (ELECTRONIC SIGNATURE): 02/13/2018 4:35 PMTECHNOLOGIST: JENNY ABREU LRT Radiology Report from [id number] on 02/16 10:06:00 Reason For ExamPulled and replaced PEG t ubeREPORTINDICATION: PEG tube replacementKUB 5:40 AM3 ml of Omnipaque was injected through the PEG tube. The contrast appears to beopacified in the gastric lumen. There is no evidence of leak.IMPRESSION: PEG tube appears to be within the gastric lumen.Dictated on workstation:[id number] Line FINAL DICTATED BY: KARLIE RIVERA MDDICTATED DT/TM: 02/16/2018 5:51 AMSIGNED BY: KARLIE RIVERA MDSIGNED (ELECTRONIC SIGNATURE): 02/16/2018 8:05 AMTECHNOLOGIST: MIAN LAWRENCE PHAM, TRUNG Q ARRT Radiology Report from [id number] on 02/16 11:22:00 Reason For Examverify placement of PEG t ubeREPORTINDICATION:PEG tube placement verification.EXAMINATION:KUB at 10:19 AM.FINDINGS:There is contrast in the stomach and small bowel. There is no evidence for aleak.IMPRESSION:The gastrostomy tube appears to be within the stomach.Dictated on workstation:[id number] Line PRELIMINARY DICTATED BY: KARLIE RIVERA MDDICTATED DT/TM: 02/16/2018 11:01 Radiology Report from [id number] on 03/02 12:41:00 Reason For ExamDifficulty swallowing [...] Comments: Fluoroscopy time (in minutes): 3.02Dictated on workstation:[id number] Line PRELIMINARY DICTATED BY: DELIO FELICIANO MDDICTATED DT/TM: 03/02/2018 12:36 Radiology Report from [id number] on 03/03 15:10:00 Reason For Exam6 week [...] infarct followingcatheter removal. No adverse development.Dictated on workstation:[id number] Line PRELIMINARY DICTATED BY: RAFFAELE GREEN MDDICTATED DT/TM: 03/03/2018 11:25 Encounters ACCT No. Visit Date/Time Discharge Status Pt. Type Provider Facility Loc./Unit Complaint [id number] 01/23/2018 15:39:00 15:53:00 DIS Inpatient Liz Aaron [facility] on [place] VCHF F6SE subdural Hemotoma [id number] 03/04/2018 05:18:14 Document Registration [id number] 02/21/2018 05:18:55 Document Registration [id number] 02/17/2018 05:18:45 Document Registration [id number] 02/16/2018 05:19:03 Document Registration [id number] 02/15/2018 05:20:48 Document Registration [id number] 02/10/2018 05:18:34 Document Registration [id number] 02/09/2018 05:22:25 Document Registration [id number] 02/07/2018 05:19:55 Document Registration [id number] 02/06/2018 05:16:33 Document Registration [id number] 02/05/2018 05:16:56 Document Registration [id number] 02/03/2018 05:18:25 Document Registration [id number] 02/01/2018 05:20:52 Document Registration [id number] 01/31/2018 05:19:44 Document Registration [id number] 01/30/2018 05:17:15 Document Registration [id number] 01/29/2018 05:16:39 Document Registration [id number] 01/27/2018 05:16:28 Document Registration [id number] 01/25/2018 05:17:21 Document Registration [id number] 01/24/2018 05:21:20 Document Registration [id number] 12/01/2018 10:46:03 12/01/2018 23:59:5 9 CLS Outpatient [id number] 07/20/2018 14:57:15 9 15:05:33 DIS Outpatient Kris Díaz [facility] [id number] 04/21/2019 06:04:00 020 09:15:00 DIS Emergency HARDIK [place], CHUY [facility]and[facility] ER FALL,LAC [id number] 03/30/2019 14:46:00 23:59:59 CLS Outpatient FABIÁN KENYON DO [facility] RAD LOW BACK PAIN RIB PAIN [id number] 01/16/2019 11:23:00 23:59:59 CLS Outpatient FABIÁN KENYON DO [facility] RAD R RING FINGER S WOLLEN AND BRUISED [id number] 11/29/2018 15:03:00 23:59:59 CLS Outpatient FABIÁN KENYON DO [facility] LAB SCABIES SCRAPIN G [id number] 11/03/2018 22:13:00 01:51:00 DIS Emergency KARLIE EISENBERG MD [facility] ER SOA [id number] 10/31/2018 14:22:00 13:40:00 DIS Inpatient FABIÁN KENYON DO [facility] ICU PNA;HYPOXIA;HYP ERCARBIA [id number] 10/30/2018 12:19:00 23:59:59 CLS Outpatient FABIÁN KENYON DO [facility] LAB RULE OUT PNEUMO JAZZY [id number] 08/28/2018 14:39:00 23:59:59 CLS Outpatient FABIÁN KENYON DO [facility] RAD FALL AND WEAKNE SS,UTI [id number] 07/19/2019 09:55:00 Document Registration [id number] 07/05/2018 10:25:00 07/05/2018 11: 25:00 DIS undefined [facility] [id number] 07/03/2018 11:05:00 07/03/2018 12: 05:00 DIS undefined [facility] [id number] 06/26/2018 11:24:00 06/26/2018 12: 24:00 DIS undefined [facility] [id number] 06/06/2018 11:18:00 06/06/2018 12: 18:00 DIS undefined [facility] [id number] 06/05/2018 11:02:00 06/05/2018 12: 02:00 DIS undefined [facility] [id number] 05/25/2018 11:06:00 05/25/2018 12: 06:00 DIS undefined [facility] [id number] 02/09/2018 11:18:09 02/09/2018 23:5 9:59 CLS Outpatient Jameson Valerio [id number] 06/17/2017 15:00:00 06/17/2017 23:59: 59 CLS Outpatient Adarsh Hinojosa [facility] [id number] 01/18/2018 15:40:00 Document Registration [id number] 11/23/2016 07:50:00 Document Registration
--- NOTE | 2019-07-19 14:48 | Consultation-Cardiology ---
HPI-Cardiology Cardiology Consultation: Date of Consultation 07/19/19 Time Seen by a Provider: 13:10 Date of Admission Attending Physician Albina Silverman MD Admitting Physician Hiro Barrett DO Consulting Physician FIORELLA KELLEY MD, MA, FACP, FACC, FSCAI, CCDS HPI: Chief Complaint: Reason for consultation: Syncope HPI Mr. Baldwin is a 78 year old male who has been admitted from the ED to [facility]. He is very GRINDSTONE and a poor historian. Per review of ED records he lives in a LTC Facility; he was walking with staff this morning when per report he felt weak and was lowered to the floor. He was than placed in a w/c where staff reports he lost consciousness for approx 20 sec. They report he was hypotensive at the time, BP 80's systolic. He was able to ambulate to the cart by himself once EMS arrived for transport. He has had no further episodes. He is oriented to self only. He has a h/o dementia. He denies any c/o CP or SOB. He denies any n/v. Review of Systems-Cardiology All Other Systems Reviewed Negative Unless Noted: Yes ITI-Psatlb-Ilubrj Hx Patient Social History Alcohol Use: Denies Use Recreational Drug Use: No Smoking Status: Never a Smoker Type Used: Cigarettes Recent Foreign Travel: No Recent Infectious Disease Expo: No Hospitalization with Isolation: Denies Immunizations Up To Date Tetanus Booster (TDap): Unknown Past Medical History PMH As described under Assessment. Family Medical History Family Medical History: Unable to contribute d/t dementia Family History: Patient reports no known family medical history. Allergies and Home Medications Allergies Coded Allergies: quetiapine (Verified Allergy, Unknown, 10/31/18) Home Medications Acetaminophen 325 Mg Tablet, 650 MG PO Q4H PRN for PAIN-MILD OR TEMPATURE, (Reported) TAKES 2 (325MG) TABLETS Ascorbic Acid 500 Mg Tablet, 500 MG PO BID, (Reported) Bisacodyl 10 Mg Supp.rect, 10 MG RC Q72H PRN for CONSTIPATION-4TH LINE, (Reported) Carboxymethylcellulose Sodium 15 Ml Drops, 2 DROPS OS PRN PRN for DRY EYES, (Reported) Cyanocobalamin 1,000 Mcg/Ml Inj, 1,000 MCG IM Tu, (Reported) Escitalopram Oxalate 10 Mg Tablet, 10 MG PO DAILY, (Reported) Ferrous Sulfate 325 Mg Tablet, 325 MG PO BID, (Reported) Fluticasone Propionate 16 Gm [place].susp, 1 SPRAY NS BID, (Reported) Fluticasone/Salmeterol 12 Gm Hfa.aer.ad, 1 PUFF INH BID, (Reported) RINSE MOUTH AFTER USE Folic Acid 1 Mg Tablet, 1 MG PO DAILY, (Reported) Isosorbide Dinitrate 5 Mg Tablet, 5 MG PO DAILY, (Reported) HOLD FOR BP <100/60 AND PULSE <60 Loperamide HCl 2 Mg Tablet, 2-4 MG PO PRN PRN for LOOSE STOOLS, (Reported) GIVE 2 TABS FOR LOOSE STOOL THEN 1 TAB AFTER EACH STOOL THEREAFTER Loratadine 10 Mg Tablet, 10 MG PO DAILY, (Reported) Mag Hydrox/Aluminum Hyd/Simeth 355 Ml Oral.susp, 30 ML PO Q6H PRN for INDIGESTION, (Reported) Magnesium Hydroxide 2,400 Mg/10 Ml Oral.susp, 30 ML PO DAILY PRN for CONSTIPATION-7TH LINE, (Reported) Magnesium Oxide 400 Mg Tablet, 400 MG PO DAILY, (Reported) Mirtazapine 15 Mg Tablet, 15 MG PO HS, (Reported) Multivitamin with Minerals 1 Each Tablet, 1 TAB PO DAILY, (Reported) Omeprazole 20 Mg Capsule.dr, 20 MG PO DAILY, (Reported) Polyethylene Glycol 3350 17 Gm Powd.pack, 17 GM PO DAILY, (Reported) Pravastatin Sodium 40 Mg Tablet, 40 MG PO HS, (Reported) Risperidone 12.5 Mg/2 Ml Disp.syrin, 12.5 MG IM MONTHLY, (Reported) Rivaroxaban 10 Mg Tablet, 10 MG PO DAILY, (Reported) Sennosides/Docusate Sodium 1 Each Tablet, 1 TAB PO HS, (Reported) HOLD FOR LOOSE STOOLS Tamsulosin HCl 0.4 Mg Cap, 0.4 MG PO HS, (Reported) Thiamine HCl 100 Mg Tablet, 100 MG PO DAILY, (Reported) Trazodone HCl 50 Mg Tablet, 75 MG PO HS, (Reported) TAKES 1 & (50MG) TABS Patient Home Medication List Home Medication List Reviewed: Yes Physical Exam-Cardiology Physical Exam Vital Signs/I&O 07/19/19 07/19/19 07/19/19 07/19/19 09:27 10:37 11:40 11:45 Temp 36.4 Pulse 49 48 51 52 54 Resp 15 20 B/P (MAP) 108/50 (69) 117/51 (73) 113/63 111/55 (73) 116/52 (73) Pulse Ox 96 98 97 O2 Delivery Room Air Room Air Room Air 07/19/19 07/19/19 07/19/19 11:45 11:55 12:30 Temp 36.4 Pulse 49 51 53 Resp 14 B/P (MAP) 184/78 Pulse Ox 97 O2 Delivery Room Air Capillary Refill : Less Than 3 Seconds Constitutional: well-developed, well-nourished, other (Oriented to self only; conversation inappropriate to questions asked) HEENT: PERRL, hard of hearing Neck: No carotid bruit; carotid pulses are 2 + bilaterally Respiratory: No accessory muscle use, No respiratory distress; chest expansion is symmetric, chest is bilaterally symmetric, lungs clear to auscultation Cardiovascular: regular rate-rhythm; No JVD; bradycardia, S1 and S2 Gastrointestinal: No tender; soft, round, audible bowel sounds Extremities: no lower extremity edema bilateral Neurologic/Psychiatric: other (moves all extremities) Skin: No rash on exposed areas, No ulcerations on exposed areas Data Review Labs Laboratory Tests 07/19/19 09:39: White Blood Count 6.1, Red Blood Count 3.34L, Hemoglobin 10.6L, Hematocrit 33L, Mean Corpuscular Volume 100H, Mean Corpuscular Hemoglobin 32, Mean Corpuscular Hemoglobin Concent 32, Red Cell Distribution Width 13.2, Platelet Count 229, Mean Platelet Volume 9.7, Neutrophils (%) (Auto) 78H, Lymphocytes (%) (Auto) 11L , Monocytes (%) (Auto) 8, Eosinophils (%) (Auto) 3, Basophils (%) (Auto) 0, Neutrophils # (Auto) 4.7, Lymphocytes # (Auto) 0.7L, Monocytes # (Auto) 0.5, Eosinophils # (Auto) 0.2, Basophils # (Auto) 0.0, Sodium Level 141, Potassium Level 5.0, Chloride Level 109H, Carbon Dioxide Level 19L, Anion Gap 13, Blood Urea Nitrogen 30H, Creatinine 1.47H, Estimat Glomerular Filtration Rate 46, BUN/Creatinine Ratio 20, Glucose Level 136H, Calcium Level 8.7, Corrected Calcium 8.9, Total Bilirubin 0.4, Aspartate Amino Transf (AST/SGOT) 17, Alanine Aminotransferase (ALT/SGPT) 8, Alkaline Phosphatase 69, Troponin I < 0.028, B-T ype Natriuretic Peptide 36.0, Total Protein 6.1L, Albumin 3.8 A/P-Cardiology Assessment/Admission Diagnosis Syncopal episode of undetermined etiology: suspect polypharmacy (multiple psychoactive agents) and/or volume depletion. 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 Dementia H/O frequent falls GERD H/o PEG tube (removed) H/o encephalopathy Documented h/o MS BPH HLD HTN Acute renal insufficiency - possibly d/t dehydration Discussion and Recomendations * iv fluids * Monitor on tele * Consider reducing psychoactive meds (Med Svce to decide) * Continue oral anticoag * Reduce antihypertensive regimen * Monitor labs * Consider ILR if no cause found for syncope during this hospitalization Clinical Quality Measures DVT/VTE Risk/Contraindication: Risk Factor Score Per Nursin RFS Level Per Nursing on Admit: 4+=Very High FIORELLA KELLEY MD FACP FAC CCDS July 19, 2019 14:48
--- NOTE | 2019-07-19 15:01 | NUR ---
REPORT GIVEN TO JUDI VALENTINE WHO ASSUMES CARE OF PT, NO QUESTIONS/CONCERNS VOICED.
[2019-07-19 16:00] VITALS: BP 163/96
[2019-07-19 21:06] VITALS: BP 205/93
--- NOTE | 2019-07-19 21:21 | NUR ---
PT BLOOD PRESSURE 205/93 WITH A HEART RATE OF 51. DR. KELLEY NOTIFIED AND NEW ORDERS RECEIVED FOR 5 MG PO NORVASC X1 AND MAY REPEAT IN 4 HOURS FOR SBP>180.
[2019-07-19] MEDS ORDERED: amLODIPine 5 MG (NORVASC) TAB PO ONE (21:30)
[2019-07-19 23:29] VITALS: BP 190/83
[2019-07-20 01:26] VITALS: BP 171/73
[2019-07-20] MEDS ORDERED: amLODIPine 5 MG (NORVASC) TAB PO PRN (01:30)
[2019-07-20 03:38] LABS: BASOPHILS % (AUTO) 1 % (0-10); EOSINOPHILS # (AUTO) 0.2 10^3/uL (0.0-0.3); EOSINOPHILS % (AUTO) 4 % (0-10); HEMATOCRIT 34 % (40-54); HEMOGLOBIN 10.6 G/DL (13.3-17.7); LYMPHOCYTES # (AUTO) 0.9 X 10^3 (1.0-4.0); LYMPHOCYTES % (AUTO) 16 % (12-44); MEAN CORPUSCULAR HEMOGLOBIN 32 PG (25-34); MEAN CORPUSCULAR HGB CONC 32 G/DL (32-36); MEAN CORPUSCULAR VOLUME 100 FL (80-99); MEAN PLATELET VOLUME 9.9 FL (7.4-10.4); MONOCYTES # (AUTO) 0.5 X 10^3 (0.0-1.0); MONOCYTES % (AUTO) 9 % (0-12); NEUTROPHILS # (AUTO) 3.9 X 10^3 (1.8-7.8); NEUTROPHILS % (AUTO) 71 % (42-75); PLATELET COUNT 196 10^3/uL (130-400); RED CELL DISTRIBUTION WIDTH 13.4 % (10.0-14.5); WHITE BLOOD COUNT 5.5 10^3/uL (4.3-11.0)
[2019-07-20 04:07] LABS: ALANINE AMINOTRANSFERASE 7 U/L (0-55); ALBUMIN 3.7 GM/DL (3.2-4.5); ALKALINE PHOSPHATASE 71 U/L (40-136); BILIRUBIN,TOTAL 0.4 MG/DL (0.1-1.0); BUN/CREATININE RATIO 24; CARBON DIOXIDE 25 MMOL/L (21-32); CHLORIDE 107 MMOL/L (98-107); GFR ESTIMATED > 60; GLUCOSE 96 MG/DL (70-105); POTASSIUM 4.5 MMOL/L (3.6-5.0); SODIUM 140 MMOL/L (135-145); TOTAL PROTEIN 6.1 GM/DL (6.4-8.2)
[2019-07-20 04:58] VITALS: BP 175/82
--- NOTE | 2019-07-20 06:22 | Diagnostic Imaging Report ---
Indication: Syncope Portable chest 3:34 AM Heart size and pulmonary vascularity are normal. Lungs are clear. There are no effusions or pneumothoraces. IMPRESSION: Negative chest Dictated by: Dictated on workstation # [id number]
[2019-07-20 08:39] VITALS: BP 176/78
[2019-07-20] MEDS ORDERED: RIVAROXABAN 10 MG TABLET (XARELTO) PO SCH (09:00)
[2019-07-20] MEDS ORDERED: HALOPERIDOL 5 MG/ML (HALDOL) AMP ONE (10:15)
--- NOTE | 2019-07-20 10:21 | NUR ---
PT BECOMING AGITATED AND CUSSING AT STAFF. DR JUAREZ NOTIFIED, NEW ORDERS RECEIVED FOR 2MG IM HALDOL X1.
[2019-07-20] MEDS ORDERED: HALOPERIDOL 5 MG/ML (HALDOL) AMP IM NR (10:30)
[2019-07-20] MEDS ORDERED: ZIPRASIDONE 20 MG INJ (GEODON) VIAL IM ONE (10:40)
--- NOTE | 2019-07-20 10:40 | NUR ---
pt hitting staff, attempting to get out of bed. unable to redirect pt. dr dawn notified. new orders received for kyle, see emar for details.
[2019-07-20] MEDS ORDERED: WATER (STERILE) FOR INJECTION 10 ML ONE (10:41)
[2019-07-20] MEDS ORDERED: ZIPRASIDONE 20 MG INJ (GEODON) VIAL IM NR (10:45)
--- NOTE | 2019-07-20 11:15 | NUR ---
DISCHARGE PLANNING: Patient is to have Loop Recorder placement today. may discharge after that back to [facility]. I have spoken to Liberty at [facility] and she says "just let us know and we will come get him". No orders for discharge at this time.
[2019-07-20] MEDS ORDERED: HALOPERIDOL 5 MG/ML (HALDOL) AMP IM ONE (11:45)
[2019-07-20 12:00] VITALS: BP 172/68
--- NOTE | 2019-07-20 12:28 | Progress Note - Cardiology ---
Cardiology SOAP Progress Note Subjective: Does not report cp or palp or shortness of breath Has no recollection of syncope Does not report n/v Objective: I&O/Vital Signs 07/20/19 07/20/19 07/20/19 07/20/19 01:00 01:26 04:00 04:58 Temp 36.6 37.0 Pulse 53 55 54 Resp 16 18 B/P (MAP) 171/73 (105) 175/82 (113) Pulse Ox 96 95 O2 Delivery Room Air Room Air Room Air 07/20/19 07/20/19 07/20/19 07/20/19 07:00 08:39 08:42 08:55 Temp 36.9 Pulse 52 56 Resp 16 B/P (MAP) 176/78 (110) Pulse Ox 96 O2 Delivery Room Air Room Air Room Air 07/20/19 11:50 O2 Delivery Room Air 07/20/19 00:00 Intake Total 1170 ml Output Total 750 ml Balance 420 ml Weight (Pounds): 199 Weight (Ounces): 3.0 Weight (Calculated Kilograms): 90.358765 Constitutional: No AAO x 3; well-developed, well-nourished, other (Oriented to self only; conversation inappropriate to questions asked; hard of hearing) Respiratory: No accessory muscle use, No respiratory distress; chest expansion is symmetric, chest is bilaterally symmetric, lungs clear to auscultation Cardiovascular: regular rate-rhythm; No JVD; bradycardia, S1 and S2 Gastrointestional: No tender; soft, round, audible bowel sounds Extremities: no lower extremity edema bilateral Neurologic/Psychiatric: other (moves all extremities) Skin: No rash on exposed areas, No ulcerations on exposed areas Results/Procedures: Labs Laboratory Tests 07/20/19 03:13: White Blood Count 5.5, Red Blood Count 3.36L, Hemoglobin 10.6L, Hematocrit 34L, Mean Corpuscular Volume 100H, Mean Corpuscular Hemoglobin 32, Mean Corpuscular Hemoglobin Concent 32, Red Cell Distribution Width 13.4, Platelet Count 196, Mean Platelet Volume 9.9, Neutrophils (%) (Auto) 71, Lymphocytes (%) (Auto) 16, Monocytes (%) (Auto) 9, Eosinophils (%) (Auto) 4, Basophils (%) (Auto) 1, Neutrophils # (Auto) 3.9, Lymphocytes # (Auto) 0.9L, Monocytes # (Auto) 0.5, Eosinophils # (Auto) 0.2, Basophils # (Auto) 0.0, Sodium Level 140, Potassium Level 4.5, Chloride Level 107, Carbon Dioxide Level 25, Anion Gap 8, Blood Urea Nitrogen 26H, Creatinine 1.10, Estimat Glomerular Filtration Rate > 60, BUN/Creatinine Ratio 24, Glucose Level 96, Calcium Level 9.0, Corrected Calcium 9.2, Total Bilirubin 0.4, Aspartate Amino Transf (AST/SGOT) 10, Alanine Aminotransferase (ALT/SGPT) 7, Alkaline Phosphatase 71, Troponin I < 0.028, Total Protein 6.1L, Albumin 3.7 Laboratory Tests 07/19/19 09:39 07/20/19 03:13 A/P: Assessment: Syncopal episode of undetermined etiology: suspect polypharmacy (multiple psychoactive agents) and/or volume depletion. 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 CCDS July 20, 2019 12:28
[2019-07-20] MEDS ORDERED: HALOPERIDOL 5 MG/ML (HALDOL) AMP IM PRN (13:15)
--- NOTE | 2019-07-20 13:16 | History & Physical-Hospitalist ---
History of Present Illness HPI/Chief Complaint Kat Baldwin is a 70-year-old male with past medical history of severe dementia, hypertension, hyperlipidemia, BPH, pulmonary embolism on Xarelto, who presented from [facility] after having a syncopal event. He is unable to provide any meaningful history due to his severe dementia. His workup on arrival found him to be dehydrated with acute kidney injury. A CT scan of his head revealed no acute abnormalities. An infectious workup was negative. He was found to have sinus bradycardia which appears to be chronic. He denies any pain. He denies any trouble breathing. He is oriented to self only. Source: RN/MD Exam Limitations: clinical condition Date Seen 07/20/19 Time Seen by a Provider: 09:25 Attending Physician Damaris Juarez MD PCP Hiro Barrett DO Referring Physician Date of Admission July 19, 2019 at 11:27 Home Medications & Allergies Home Medications Reviewed patient Home Medication Reconciliation performed by pharmacy medication reconciliations transport tank technician and/or nursing. Patients Allergies have been reviewed. Allergies Allergies Coded Allergies quetiapine (Verified Allergy, Unknown, 10/31/18) Past Iacqkyk-Yyimun-Irisiy Hx Past Med/Social Hx: Reviewed Nursing Past Med/Soc Hx Patient Social History Alcohol Use: Denies Use Recreational Drug Use: No Smoking Status: Never a Smoker Type Used: Cigarettes Recent Foreign Travel: No Contact w/other who traveled: No Recent Hopitalizations: No Recent Infectious Disease Expo: No Immunizations Up To Date Tetanus Booster (TDap): Unknown Seasonal Allergies Seasonal Allergies: No Past Medical History Cardiac: High Cholesterol, Hypertension Neurological: Dementia, Traumatic Brain Injury Genitourinary: Benign Prostatic Hyperpl Gastrointestinal: Gastroesophageal Reflux Musculoskeletal: Arthritis Psychosocial: Depression History of Blood Disorders: No Family History Patient reports no known family medical history. Review of Systems Constitutional: no symptoms reported, see HPI Physical Exam Physical Exam Vital Signs Vital Signs - First Documented 07/19/19 09:27 Temp 36.4 Pulse 49 Resp 15 B/P (MAP) 108/50 (69) Pulse Ox 96 O2 Delivery Room Air Capillary Refill : Less Than 3 Seconds Height, Weight, BMI Height: 5'8.00" Weight: 199lbs. 3.0oz. [id number]; 23.66 BMI Method:Estimated General Appearance: No Apparent Distress, Chronically ill HEENT: PERRL/EOMI, Pharynx Normal Neck: Normal Inspection, Supple Respiratory: Lungs Clear, Normal Breath Sounds, No Respiratory Distress Cardiovascular: Regular Rate, Rhythm, No Murmur Gastrointestinal: Normal Bowel Sounds, Non Tender, Soft Extremity: Normal Inspection, Non Tender, Pedal Edema Neurologic/Psychiatric: Alert, No Motor/Sensory Deficits, Normal Mood/Affect, Disoriented Skin: Normal Color, Warm/Dry Results Results/Procedures Labs Laboratory Tests 07/19/19 09:39 07/20/19 03:13 Patient resulted labs reviewed. Imaging: Reviewed Imaging Report Assessment/Plan Admission Diagnosis Syncope Admission Status: Inpatient Order (span 2 midnights) Reason for Inpatient Admission: Syncope requiring further evaluation and treatment Assessment and Plan Syncope Dehydration Acute kidney injury Sinus bradycardia Syncope likely due to orthostatic hypotension, evaluating for cardiac causes Cardiology consulted, appreciate assistance Considering intermittent loop recorder placement Creatinine 1.47 on arrival, improved to 1.1 this morning Continue IV fluids Delirium due to multiple etiologies, hyperactive, acute Severe dementia Reorient as needed Haldol as needed Hypertension Hyperlipidemia BPH History of pulmonary embolism Continue home meds DVT prophylaxis: Already receiving therapeutic anticoagulation Diagnosis/Problems Diagnosis/Problems (1) Syncope Status: Acute Qualifiers: Syncope type: unspecified Qualified Codes: R55 - Syncope and collapse (2) Sinus bradycardia Status: Chronic (3) Dehydration Status: Acute (4) Acute kidney injury Status: Acute (5) HTN (hypertension) Status: Chronic Qualifiers: Hypertension type: essential hypertension Qualified Codes: I10 - Essential (primary) hypertension (6) HLD (hyperlipidemia) Status: Chronic (7) BPH (benign prostatic hyperplasia) Status: Chronic (8) History of pulmonary embolism Status: Chronic (9) Severe dementia Status: Chronic (10) Delirium due to multiple etiologies, acute, hyperactive Status: Acute Clinical Quality Measures DVT/VTE Risk/Contraindication: Risk Factor Score Per Nursin RFS Level Per Nursing on Admit: 4+=Very High DAMARIS JUAREZ MD July 20, 2019 13:16
[2019-07-20] MEDS ORDERED: amLODIPine 5 MG (NORVASC) TAB PO SCH (13:45)
--- NOTE | 2019-07-20 15:02 | NUR ---
ok to dc back to [facility] per [place] canales. dr dawn updated.
--- NOTE | 2019-07-20 15:26 | NUR ---
REPORT GIVEN TO KENYON AT [facility], NO QUESTIONS/CONCERNS VOICED.
--- NOTE | 2019-07-20 17:20 | NUR ---
PT D/C'D BACK TO [facility] W/ STAFF AND PERSONAL BELONGINGS.
[2019-07-20] MEDS ORDERED: NON-FORMULARY MEDICATION 1 EA EA (Pravastatin Sodium 40 MG) PO SCH (21:00)
[2019-07-20] MEDS ORDERED: NON-FORMULARY MEDICATION 1 EA EA (Mirtazapine 15 MG) PO SCH (21:00)
[2019-07-20] MEDS ORDERED: traZODone 50 MG (DESYREL) TAB PO SCH (21:00)
[2019-07-20] MEDS ORDERED: TAMSULOSIN 0.4 MG (FLOMAX) CAP PO SCH (21:00)
[2019-07-20] MEDS ORDERED: ADVAIR HFA 115/21 MCG INHALER 8 GM IH SCH (21:00)
[2019-07-20] MEDS ORDERED: FLUTICASONE NASAL SPRAY (FLONASE) 16 GM BTL NS SCH (21:00)
[2019-07-20] MEDS ORDERED: MIRTAZAPINE 15 MG (REMERON) TAB PO SCH (21:00)
[2019-07-21] MEDS ORDERED: ISOSORBIDE DINITRATE 10 MG (ISORDIL) TABLET PO SCH (09:00)
[2019-07-21] MEDS ORDERED: NON-FORMULARY MEDICATION 1 EA EA (Escitalopram Oxalate 10 MG) PO SCH (09:00)
[2019-07-21] MEDS ORDERED: ISOSORBIDE DINITRATE 5 MG PO SCH (09:00)
[2019-07-21] MEDS ORDERED: LORATADINE (CLARITIN) 10 MG TAB PO SCH (09:00)
[2019-07-21] MEDS ORDERED: PANTOPRAZOLE 20 MG TABLET (PROTONIX) PO SCH (09:00)
[2019-07-21] MEDS ORDERED: OMEPRAZOLE 20 MG (PriLOSEC) CAP NON-FORMULARY PO SCH (09:00)
== END 2019-07-20 17:20 | DRG 312 ==
LOC: EDUNIT# 09:26 → ER 09:27 → CSD 11:27 → ICU 16:12 → CSD 07-20 09:13 → ICU 07-20 09:13
PROVIDERS: ADMIT Internal Medicine; ATTEND Internal Medicine
DX: I95.1 Orthostatic hypotension (principal); N17.9 Acute kidney failure, unspecified; E86.0 Dehydration; R00.1 Bradycardia, unspecified; F03.90 Unspecified dementia, unspecified severity, without behavioral disturbance, psychotic disturbance, mood disturbance, and anxiety; Z66 Do not resuscitate; Z86.711 Personal history of pulmonary embolism; Z87.820 Personal history of traumatic brain injury; N40.0 Benign prostatic hyperplasia without lower urinary tract symptoms; K21.9 Gastro-esophageal reflux disease without esophagitis; M19.91 Primary osteoarthritis, unspecified site; F32.9 Major depressive disorder, single episode, unspecified; E78.5 Hyperlipidemia, unspecified; I10 Essential (primary) hypertension; Z79.01 Long term (current) use of anticoagulants
CPT/HCPCS: 36415; 70450; 71045; 80053; 83880; 84484; 85025; 93005; 96360

== ENCOUNTER → 2019-09-23 | Outpatient (CLI) | payer MEDICARE, MEDICAID ==
[~2019-09-23] MED LIST changes: +CARB15DR OS; +LOPE2TAB32 PO; +MIRT15TA6 PO; +TRZ50T PO
[2019-09-24 00:14] LABS: BILIRUBIN,URINE NEGATIVE (NEGATIVE); CLARITY,URINE CLEAR; COLOR,URINE YELLOW; GLUCOSE, URINE (UA) NEGATIVE (NEGATIVE); KETONES,URINE NEGATIVE (NEGATIVE); LEUKOCYTE ESTERASE ,URINE NEGATIVE (NEGATIVE); NITRITE,URINE NEGATIVE (NEGATIVE); PH,URINE 5.5 (5-9); PROTEIN,URINE NEGATIVE (NEGATIVE)
[2019-09-24 00:27] LABS: BACTERIA,URINE NEGATIVE /HPF; SQUAMOUS EPITHELIAL CELL,UR 0-2 /HPF
[2019-09-24 00:28] LABS: HYALINE CASTS, URINE 0-2 /LPF
== END ==
LOC: LAB 23:56
PROVIDERS: ATTEND Family Medicine
DX: Z01.89 Encounter for other specified special examinations (principal)
CPT/HCPCS: 81000

== ENCOUNTER 2020-02-15 10:06 | Emergency (ER) | payer MEDICARE, MEDICAID ==
[~2020-02-15] VITALS: Ht 177.8 cm; Wt 74.8 kg
[2020-02-15] MEDS ORDERED: LORazepam INJ 2 MG/ML (ATIVAN) VIAL IM ONE (10:30)
[2020-02-15] MEDS ORDERED: ACETAMINOPHEN 325 MG TABLET PO ONE (10:30)
[2020-02-15 10:38] LABS: BASOPHILS % (AUTO) 0 % (0-10); EOSINOPHILS % (AUTO) 0 % (0-10); HEMATOCRIT 33 % (40-54); HEMOGLOBIN 9.9 g/dL (13.3-17.7); LYMPHOCYTES # (AUTO) 0.7 10^3/uL (1.0-4.0); LYMPHOCYTES % (AUTO) 5 % (12-44); MEAN CORPUSCULAR HEMOGLOBIN 31 pg (25-34); MEAN CORPUSCULAR HGB CONC 30 g/dL (32-36); MEAN CORPUSCULAR VOLUME 102 fL (80-99); MEAN PLATELET VOLUME 9.5 fL (9.0-12.2); MONOCYTES # (AUTO) 0.6 10^3/uL (0.0-1.0); MONOCYTES % (AUTO) 4 % (0-12); NEUTROPHILS # (AUTO) 11.9 10^3/uL (1.8-7.8); NEUTROPHILS % (AUTO) 90 % (42-75); PLATELET COUNT 274 10^3/uL (130-400); WHITE BLOOD COUNT 13.2 10^3/uL (4.3-11.0)
--- NOTE | 2020-02-15 10:42 | ED General ---
General Stated Complaint: COVID +,CP Source of Information: EMS Exam Limitations: Physical Impairments History of Present Illness Date Seen by Provider: Feb 15, 2020 Time Seen by Provider: 10:30 Initial Comments Patient is a 79-year-old male who presents to the emergency room from a local longterm by EMS with a chief complaint of possible chest pain as the patient's been grabbing at his chest as well as low oxygen saturations. Patient was diagnosed approximately a week ago with COVID-19. Patient has been doing well. Reportedly the patient only had fevers for the first 3 days of his illness. He is been satting fine at the longterm reportedly until today. Patient has a history of dementia and is very confused and unable to provide any HPI, past medical family or social history. Review of systems is also unobtainable secondary to the patient's dementia. Timing/Duration: Other (Unknown) Allergies and Home Medications Allergies Coded Allergies: quetiapine (Verified Allergy, Unknown, 10/31/18) Home Medications Acetaminophen 325 Mg Tablet, 650 MG PO Q4H PRN for PAIN-MILD OR TEMPATURE, (Reported) TAKES 2 (325MG) TABLETS Ascorbic Acid 500 Mg Tablet, 500 MG PO BID, (Reported) Bisacodyl 10 Mg Supp.rect, 10 MG RC Q72H PRN for CONSTIPATION-4TH LINE, (Reported) Carboxymethylcellulose Sodium 15 Ml Drops, 2 DROPS OS PRN PRN for DRY EYES, (Reported) Cyanocobalamin 1,000 Mcg/Ml Inj, 1,000 MCG IM Tu, (Reported) Escitalopram Oxalate 10 Mg Tablet, 10 MG PO DAILY, (Reported) Ferrous Sulfate 325 Mg Tablet, 325 MG PO BID, (Reported) Fluticasone Propionate 16 Gm [place].susp, 1 SPRAY NS BID, (Reported) Fluticasone/Salmeterol 12 Gm Hfa.aer.ad, 1 PUFF INH BID, (Reported) RINSE MOUTH AFTER USE Folic Acid 1 Mg Tablet, 1 MG PO DAILY, (Reported) Isosorbide Dinitrate 5 Mg Tablet, 5 MG PO DAILY, (Reported) HOLD FOR BP <100/60 AND PULSE <60 Loperamide HCl 2 Mg Tablet, 2-4 MG PO PRN PRN for LOOSE STOOLS, (Reported) GIVE 2 TABS FOR LOOSE STOOL THEN 1 TAB AFTER EACH STOOL THEREAFTER Loratadine 10 Mg Tablet, 10 MG PO DAILY, (Reported) Mag Hydrox/Aluminum Hyd/Simeth 355 Ml Oral.susp, 30 ML PO Q6H PRN for INDIGEST ION, (Reported) Magnesium Hydroxide 2,400 Mg/10 Ml Oral.susp, 30 ML PO DAILY PRN for CONSTIPATIO N-7TH LINE, (Reported) Magnesium Oxide 400 Mg Tablet, 400 MG PO DAILY, (Reported) Mirtazapine 15 Mg Tablet, 15 MG PO HS, (Reported) Multivitamin with Minerals 1 Each Tablet, 1 TAB PO DAILY, (Reported) Omeprazole 20 Mg Capsule.dr, 20 MG PO DAILY, (Reported) Polyethylene Glycol 3350 17 Gm Powd.pack, 17 GM PO DAILY, (Reported) Pravastatin Sodium 40 Mg Tablet, 40 MG PO HS, (Reported) Risperidone 12.5 Mg/2 Ml Disp.syrin, 12.5 MG IM MONTHLY, (Reported) Rivaroxaban 10 Mg Tablet, 10 MG PO DAILY, (Reported) Sennosides/Docusate Sodium 1 Each Tablet, 1 TAB PO HS, (Reported) HOLD FOR LOOSE STOOLS Tamsulosin HCl 0.4 Mg Cap, 0.4 MG PO HS, (Reported) Thiamine HCl 100 Mg Tablet, 100 MG PO DAILY, (Reported) Trazodone HCl 50 Mg Tablet, 75 MG PO HS, (Reported) TAKES 1 & (50MG) TABS Patient Home Medication List Home Medication List Reviewed: Yes Review of Systems Review of Systems Constitutional: see HPI Review of systems unobtainable secondary to the patient's dementia Past [id number]-[id number] Hx Patient Social History Type Used: Cigarettes Recent Hopitalizations: No Immunizations Up To Date Tetanus Booster (TDap): Unknown Seasonal Allergies Seasonal Allergies: No Past Medical History Surgeries: Yes (craniotomy) Respiratory: Yes Pulmonary Embolism Cardiac: Yes High Cholesterol, Hypertension Neurological: Yes Dementia, Traumatic Brain Injury Genitourinary: Yes Benign Prostatic Hyperpl Gastrointestinal: Yes Gastroesophageal Reflux Musculoskeletal: Yes Arthritis Endocrine: No HEENT: No Cancer: No Psychosocial: Yes Depression Integumentary: No Blood Disorders: No Family Medical History Patient reports no known family medical history. Physical Exam Vital Signs Capillary Refill : Height, Weight, BMI Height: 5'8.00" Weight: 199lbs. 3.0oz. [id number]; 23.66 BMI Method:Estimated General Appearance: No Apparent Distress, WD/WN, Other (Agitated and anxious, repeatedly pulling at medical equipment, repeatedly trying to get out of the bed.) Eyes: Bilateral Eye Normal Inspection, Bilateral Eye PERRL, Bilateral Eye EOMI Respiratory: Lungs Clear, Normal Breath Sounds (Best oxygen saturation obtainable is via pulse ox on his right ear and it is 94% with a good Pleth) Cardiovascular: Regular Rate, Rhythm, Normal Peripheral Pulses Gastrointestinal: Non Tender, Soft Extremity: Normal Inspection, Normal Range of Motion, Non Tender Neurologic/Psychiatric: Alert, No Motor/Sensory Deficits, Normal Mood/Affect, bag end sewer II-XII Norm as Tested Skin: Normal Color, Warm/Dry (Skin tears noted to the right hand) Progress/Results/Core Measures Suspected Sepsis SIRS Temperature: Pulse: Respiratory Rate: Laboratory Tests 02/15/20 10:25: White Blood Count 13.2H Blood Pressure / Mean: Laboratory Tests 02/15/20 10:25: Creatinine 1.18, Platelet Count 274 Results/Orders Lab Results Laboratory Tests Test 02/15/20 10:25 Range/Units White Blood Count 13.2 H 4.3-11.0 10^3/uL Red Blood Count 3.19 L 4.30-5.52 10^6/uL Hemoglobin 9.9 L 13.3-17.7 g/dL Hematocrit 33 L 40-54 % Mean Corpuscular Volume 102 H 80-99 fL Mean Corpuscular Hemoglobin 31 25-34 pg Mean Corpuscular Hemoglobin Concent 30 L 32-36 g/dL Red Cell Distribution Width 12.7 10.0-14.5 % Platelet Count 274 130-400 10^3/uL Mean Platelet Volume 9.5 9.0-12.2 fL Immature Granulocyte % (Auto) 1 % Neutrophils (%) (Auto) 90 H 42-75 % Lymphocytes (%) (Auto) 5 L 12-44 % Monocytes (%) (Auto) 4 0-12 % Eosinophils (%) (Auto) 0 0-10 % Basophils (%) (Auto) 0 0-10 % Neutrophils # (Auto) 11.9 H 1.8-7.8 10^3/uL Lymphocytes # (Auto) 0.7 L 1.0-4.0 10^3/uL Monocytes # (Auto) 0.6 0.0-1.0 10^3/uL Eosinophils # (Auto) 0.0 0.0-0.3 10^3/uL Basophils # (Auto) 0.0 0.0-0.1 10^3/uL Immature Granulocyte # (Auto) 0.1 0.0-0.1 10^3/uL Neutrophils % (Manual) 93 % Lymphocytes % (Manual) 5 % Monocytes % (Manual) 2 % Polychromasia SLIGHT Poikilocytosis SLIGHT Macrocytosis SLIGHT Helmet Cells SLIGHT Elliptocytes SLIGHT Sodium Level 141 135-145 MMOL/L Potassium Level 4.5 3.6-5.0 MMOL/L Chloride Level 106 98-107 MMOL/L Carbon Dioxide Level 25 21-32 MMOL/L Anion Gap 10 5-14 MMOL/L Blood Urea Nitrogen 32 H 7-18 MG/DL Creatinine 1.18 0.60-1.30 MG/DL Estimat Glomerular Filtration Rate 60 BUN/Creatinine Ratio 27 Glucose Level 109 H 70-105 MG/DL Calcium Level 9.1 8.5-10.1 MG/DL Troponin I < 0.028 <0.028 NG/ML My Orders Orders - YENY MCCONNELL MD Lorazepam Injection (Ativan Injection) (02/15/20 10:30) Ed Iv/Invasive Line Start (02/15/20 10:25) Cbc With Automated Diff (02/15/20 10:25) Basic Metabolic Panel (02/15/20 10:25) Troponin I (02/15/20 10:25) Ekg Tracing (02/15/20 10:25) Acetaminophen Tablet/Caplet (Tylenol T (02/15/20 10:30) Manual Differential (02/15/20 10:25) Ziprasidone Injection (Geodon Injection) (02/15/20 10:45) Water (Sterile) For Injection (Sterile W (02/15/20 10:44) Water (Sterile) For Injection (Sterile W (02/15/20 10:45) Medications Given in ED Current Medications Medications Dose Ordered Sig/Roseann Route Start Time Stop Time Status Last Admin Dose Admin Ziprasidone 10 mg ONCE ONCE IM 02/15/20 10:45 02/15/20 10:46 DC 02/15/20 10:51 10 MG Vital Signs/I&O Capillary Refill : Progress Note : Time: 12:13 Progress Note Mr. Baldwin has been evaluated, no concerning findings on physical exam or in his laboratory evaluation. He does have a mild leukocytosis but is known Covid positive. Vital signs have been stable oxygen has been in the low 90s. Good Pleth. No increased work of breathing no labored breathing. Patient was sedated in the emergency department with Geodon and Ativan. We got marginal control of his behaviors. I am unable to communicate discharge instructions to the patient secondary to his dementia. We will send him back to the longterm to resume prior care orders. Departure Impression Primary Impression: COVID-19 Disposition: 01 HOME, SELF-CARE Condition: Stable Departure-Patient Inst. Decision time for Depature: 12:17 Referrals: FABIÁN KENYON DO (PCP/Family) Primary Care Physician Patient Instructions: Coronavirus Disease 2019 (COVID-19) (DC) Add. Discharge Instructions: Resume prior care orders. Return to the emergency department for any worsening symptoms, new emergent concerns. YENY MCCONNELL MD Feb 15, 2020 10:42
[2020-02-15] MEDS ORDERED: WATER (STERILE) FOR INJECTION 0 ML ONE (10:44)
[2020-02-15] MEDS ORDERED: ZIPRASIDONE 20 MG INJ (GEODON) VIAL IM ONE (10:45)
[2020-02-15] MEDS ORDERED: WATER (STERILE) FOR INJECTION 20 ML ONE (10:45)
[2020-02-15 10:51] LABS: CHLORIDE 106 MMOL/L (98-107); POTASSIUM 4.5 MMOL/L (3.6-5.0); SODIUM 141 MMOL/L (135-145)
[2020-02-15 10:52] LABS: CALCIUM 9.1 MG/DL (8.5-10.1)
[2020-02-15 10:53] LABS: GLUCOSE 109 MG/DL (70-105)
[2020-02-15 10:54] LABS: CARBON DIOXIDE 25 MMOL/L (21-32)
[2020-02-15 10:57] LABS: CREATININE SERUM 1.18 MG/DL (0.60-1.30); GFR ESTIMATED 60
[2020-02-15 10:58] LABS: BUN/CREATININE RATIO 27
[2020-02-15 11:12] LABS: LYMPHOCYTES % (MANUAL) 5 %; MONOCYTES % (MANUAL) 2 %; NEUTROPHILS % (MANUAL) 93 %
[2020-02-15 11:13] LABS: ELLIPT/OVALOCYTES SLIGHT; HELMET/BITE CELLS SLIGHT; POIKILOCYTOSIS SLIGHT; POLYCHROMASIA SLIGHT
[2020-02-15 13:04] VITALS: BP 112/86
== END 2020-02-15 13:04 | disposition home or self-care (01) ==
LOC: EDUNIT# 10:06 → ER 10:07
DX: U07.1 COVID-19 (principal); F41.9 Anxiety disorder, unspecified; E78.00 Pure hypercholesterolemia, unspecified; F32.9 Major depressive disorder, single episode, unspecified; K21.9 Gastro-esophageal reflux disease without esophagitis; Z87.820 Personal history of traumatic brain injury; Z86.711 Personal history of pulmonary embolism; Z88.8 Allergy status to other drugs, medicaments and biological substances; Z79.01 Long term (current) use of anticoagulants
CPT/HCPCS: 36415; 80048; 84484; 85007; 85027